=== PATIENT | male | born 1965 | race Caucasian/White ===

== ENCOUNTER 2023-07-22 14:45 | Outpatient (AMB) | payer OTHER, SELFPAY ==
[2023-07-22 15:22] VITALS: BP 120/80; PULSE 70; O2SAT 96; BMI 34.0
--- NOTE | 2023-07-22 15:22 | HO.NEPHOV ---
HPI HPI Comments History of Present Illness Details I had the privilege of seeing Philip in follow-up of his hypertension. 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 He is continuing to be active. His blood pressure has been at goal. He has not changed any medications. He is trying to lose some weight. He does not have any chest pain, shortness of breath, paroxysmal nocturnal dyspnea, orthopnea, pedal edema or urinary symptoms. He did not complain of any orthostatic symptoms. He has not very strict about low-sodium diet. He avoids nonsteroidal anti-inflammatory medications and maintain good hydration. He is closely followed up by his primary care physician. He did not have any active complaints at the time of this office visit. [facility] Medical History (Updated 08/02/23 @ 09:53 by Ivan Queen MD) Hypertension Surgical History (Updated 07/22/23 @ 15:25 by Enma Moore MA) H/O prior ablation treatment Family History (Updated 07/22/23 @ 15:26 by Enma Moore MA) Mother Hypertension Social History (Updated 07/22/23 @ 15:26 by Enma Moore MA) Alcohol intake: current Comment: Socially Patient Tobacco Use Status: Never used Tobacco Vital Signs 07/22/23 15:22 Height 5 ft 7 in Weight 217 lb 6 oz BMI 34.0 BP 120/80 Blood Pressure Location Rt brachial Position Sitting Pulse 70 Pulse Source Pulse Oximeter Pulse Oximetry (%) 96 Oxygen Delivery Method Room Air Physical Exam Vital Signs: Last Vital Signs Pulse 70 07/22/23 15:22 BP 120/80 07/22/23 15:22 Pulse Ox 96 07/22/23 15:22 Oxygen Delivery Method Room Air 07/22/23 15:22 BMI result Body Mass Index 34.0 Const General: comfortable and no acute distress Orientation/consciousness: patient oriented x3 HEENT Head: Yes normocephalic Mouth: Normal oral and palatal mucosa present Eyes EOM: EOMs intact bilaterally Neck Neck: Yes supple Resp Auscultation: clear to auscultation bilaterally Cardio Jugular venous distension: no JVD Rate: regular rate GI Palpation (GI): Soft to palpation Auscultation: normal bowel sounds General: Yes no CVA tenderness Back/Spine/Pelvis Back: no CVA tenderness Skin General skin exam: no rashes or lesions noted Neuro General: patient oriented x3 and moves all extremities Extrem General: Yes no pedal edema Assessment & Plan Assessment & Plan (1) Hypertension: Code(s): I10 - Essential (primary) hypertension Qualifiers: Hypertension type: primary hypertension Qualified Code(s): I10 - Essential (primary) hypertension Plan Philip has hypertension for long time and is on antihypertensives. He has not had any irregular heart rhythm or palpitations. He does not have any retinopathy, left ventricular hypertrophy, proteinuria or abnormal renal functions. He needs to lose some weight. He should cut back sodium in the diet. He should maintain good hydration and stay away from nonsteroidal anti-inflammatories as much as he can. His blood pressure is currently well controlled on the current medication regimen. I did not make any medication changes today. No prescription refills requested. All questions answered. Follow-up given. Coding Level of Care Code Est Pt Level 3 (68322) Diagnoses Primary hypertension I10 Hypertension type: primary hypertension Results Reviewed Nephrology Results: No Data to Display
== END 2023-07-22 15:58 | disposition home or self-care (01) ==
PROVIDERS: PCP Internal Medicine; Visit Provider Internal Medicine Nephrology
DX: I10 Essential (primary) hypertension (principal)
CPT/HCPCS: 99213

== ENCOUNTER → 2023-07-22 14:45 | Outpatient (BNVA) | payer OTHER, SELFPAY | PROVIDERS: PCP Internal Medicine; Visit Provider Internal Medicine Nephrology ==

== ENCOUNTER 2023-10-01 13:18 | Outpatient (REF) | payer OTHER, SELFPAY ==
[2023-10-01 14:15] LABS: MANUAL DIFF FLAG NO
[2023-10-01 14:58] LABS: Basophils Absolute Auto 0.1 X10*3/uL (0.0-0.2); Basophils Percent Auto 1.2 % (0-2); Eosinophils Absolute Auto 0.6 X10*3/uL (0.0-0.4); Eosinophils Percent Auto 8.5 % (0-4); Hematocrit 42.8 % (42.0-52.0); Imm Gran Abs Auto 0.02 X10*3/uL (0.00-0.03); Imm Gran Pct Auto 0.3 % (0.0-0.4); Lymphocytes Absolute Auto 1.4 X10*3/uL (1.2-4.9); Lymphocytes Percent Auto 21.5 % (20-40); Mean Corpuscular Hemoglobin 30.7 pg (27.0-33.0); Mean Corpuscular Volume 87.5 fL (80.0-98.0); Monocytes Absolute Auto 0.5 X10*3/uL (0.1-1.2); Neutrophils Absolute Auto 4.1 x10*3/uL (2.0-8.3); Neutrophils Percent Auto 61.5 % (45-73); Platelet Count 278 X10*3/uL (160-400); Red Blood Count 4.89 X10*6/uL (4.60-5.80); Red Cell Distribution Width 12.8 % (11.0-16.0); White Blood Count 6.7 X10*3/uL (4.8-10.8)
[2023-10-01 15:40] LABS: Erythrocyte Sedimentation Rate 9 MM/HR (0-15)
[2023-10-01 15:51] LABS: Anion Gap 17 (12-20); Blood Urea Nitrogen 15 mg/dL (9-16); Calcium 9.7 mg/dL (8.4-10.2); Carbon Dioxide 27 mmol/L (22-29); Chloride 100 mmol/L (96-108); Estimated Glomerular Filt Rate > 60; Glucose Random 117 mg/dL (60-115); Sodium 140 mmol/L (135-145)
[2023-10-04 11:19] LABS: IgA 110 mg/dL (47-310); IgG 836 mg/dL (600-1640); IgM 104 mg/dL (50-300)
[2023-10-06 14:34] LABS: Immunoglobulin E 375 kU/L (<OR=114)
[2023-10-07 16:03] LABS: Asperg fumigatus Precip Abs NEGATIVE (NEGATIVE); Micropoly faeni Abs NEGATIVE (NEGATIVE); Pigeon serum Abs NEGATIVE (NEGATIVE); Saccharo pora viridis Abs NEGATIVE (NEGATIVE); Thermo candidus Abs NEGATIVE (NEGATIVE); Thermoa vulgaris #1 NEGATIVE (NEGATIVE)
== END 2023-10-01 13:19 | disposition home or self-care (01) ==
LOC: HO.LAB 13:18
PROVIDERS: PCP Internal Medicine; Visit Provider Hospitalist
DX: T78.40XA Allergy, unspecified, initial encounter (principal); R91.8 Other nonspecific abnormal finding of lung field; D72.19 Other eosinophilia; J45.40 Moderate persistent asthma, uncomplicated
CPT/HCPCS: 36415; 80048; 82784; 82785; 85025; 85652; 86331; 86606; 86609

== ENCOUNTER 2023-10-01 13:18 | Outpatient (AMB) | payer OTHER, SELFPAY ==
--- NOTE | 2023-10-01 13:25 | A.OFFVIS_ITS ---
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 The patient is a 58-year-old gentleman with a history of sleep apnea in addition to cardiac arrhythmias status post ablation who apparently been having worsening cough symptoms. The patient states that for the last 3-4 months he had been having worsening shortness breath and cough. Moderate severity. He was seen by primary care at 1 point was given a course of antibiotics that he did not see any significant improvement. His breathing got so bad over the winter that he went to the [facility]. There he had a chest x-ray which was without any acute disease. He did have blood work which I personally reviewed as well. His eosinophil count was up to 28% of his total white blood cell count and his absolute eosinophil count was 1900. That is significantly high. He was given prednisone symptoms improved. Now he is back to exercising some. He is almost back to baseline. He does have the rescue inhaler but does not use it too often. He was concerned about in a walker triggered his symptoms. Was not sure if it was CPAP. He does use distilled water. He denies any pets or any construction or demolition the house. He has never had allergy testing. 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 The patient does need to be on inhaled corticosteroid. He still has wheezing on examination. Will go ahead and request allergy testing at this time. In addition to that the patient did have a chest x-ray which I personally reviewed. It appears that he had smoked nodular opacity on his right hemithorax. Likely nipple shadow. At some point will have to repeat the x-ray to make sure if he continues to be abnormal he will need a CT scan of the chest. On examination the patient also had a diastolic murmur. He does have a cardiac history and has had multiple studies in the past. I will request his most re cent echocardiogram from his primary care doctors otherwise will have to order an echocardiogram. I did reassure him that he should continue using the CPAP in ways to clean the machine to make sure to minimize exposures. [facility] Medical History (Updated 10/03/23 @ 22:56 by Andrews Luu MD) Allergies Asthma Eosinophilia Hypertension Surgical History (Updated 07/22/23 @ 15:25 by Enma Moore MA) H/O prior ablation treatment Family History (Updated 07/22/23 @ 15:26 by Enma Moore MA) Mother Hypertension Social History (Updated 07/22/23 @ 15:26 by Enma Moore MA) Alcohol intake: current Comment: Socially Patient Tobacco Use Status: Never used Tobacco Review of Systems Const Denies fever(s) Eyes Reports no additional complaints ENT Reports nasal congestion Card Denies chest pain Resp Reports cough and Reports wheezing GI Reports no additional complaints Musc Reports no additional complaints Skin/Breast Denies rash Neuro Reports no additional complaints Endo Denies flushing Luis Carlos/Lymph Denies lymphadenopathy Aller/Immun Reports wheezing Physical Exam Vital Signs: Last Vital Signs Pulse 65 10/01/23 13:26 BP 146/70 H 10/01/23 13:26 Pulse Ox 97 10/01/23 13:26 Oxygen Delivery Method Room Air 10/01/23 13:26 BMI result Body Mass Index 32.9 Const General: comfortable HEENT Head: Yes normocephalic Neck Neck: Yes supple Chest Chest palpation & inspection: normal inspection of the chest Resp Effort & Inspection: normal respiratory effort and prolonged expiratory phase Auscultation: wheezes Cardio Heart sounds: S1 normal heart sound present, S2 normal heart sound present and Murmur heart sound present diastolic soft and II/ GI Palpation (GI): Soft to palpation Skin General skin exam: no rashes or lesions noted Extrem General: Yes no clubbing, cyanosis or edema Assessment & Plan Assessment & Plan (1) Eosinophilia: Code(s): D72.10 - Eosinophilia, unspecified Category: Medical Qualifiers: Eosinophilia type: other eosinophilia Qualified Code(s): D72.19 - Other eosinophilia (2) Asthma: Code(s): J45.909 - Unspecified asthma, uncomplicated Category: Medical Qualifiers: Asthma severity: moderate Asthma complication type: uncomplicated Asthma persistence: persistent Qualified Code(s): J45.40 - Moderate persistent asthma, uncomplicated (3) Allergies: Code(s): T78.40XA - Allergy, unspecified, initial encounter Category: Medical Qualifiers: Encounter type: initial encounter Qualified Code(s): T78.40XA - Allergy, unspecified, initial encounter Plan Start Breo NICOLASA as needed Nebulizer provided Bloodwork repeat CXR ?right sided nodule versus nipple shadow PFTs F/U 6-8 weeks Orders: Orders Complete Blood Count Auto Diff 10/01/23 D72.10 - Eosinophilia, unspecified, J45.909 - Unspecified asthma, uncomplicated, T78.40XA - Allergy, unspecified, initial encounter Hypersensitive Pneumonitis Prf 10/01/23 D72.10 - Eosinophilia, unspecified, J45.909 - Unspecified asthma, uncomplicated, R91.8 - Other nonspecific abnormal finding of lung field, T78.40XA - Allergy, unspecified, initial encounter PFT pulmonary function test 10/01/23 D72.10 - Eosinophilia, unspecified, J45.909 - Unspecified asthma, uncomplicated Resp Allergy Profile Region I 10/01/23 D72.10 - Eosinophilia, unspecified, J45.909 - Unspecified asthma, uncomplicated, R91.1 - Solitary pulmonary nodule, T78.40XA - Allergy, unspecified, initial encounter Basic Metabolic Panel 10/01/23 D72.10 - Eosinophilia, unspecified, J45.909 - Unspecified asthma, uncomplicated, T78.40XA - Allergy, unspecified, initial encounter Erythrocyte Sedimentation Rate 10/01/23 D72.10 - Eosinophilia, unspecified, J45.909 - Unspecified asthma, uncomplicated, T78.40XA - Allergy, unspecified, initial encounter Immunoglobulin E 10/01/23 D72.10 - Eosinophilia, unspecified, J45.909 - Unspecified asthma, uncomplicated, T78.40XA - Allergy, unspecified, initial enco unter Immunoglobulins,IgG IgA IgM 10/01/23 D72.10 - Eosinophilia, unspecified, J45.909 - Unspecified asthma, uncomplicated, T78.40XA - Allergy, unspecified, initial encounter XR chest 2V 10/01/23 D72.10 - Eosinophilia, unspecified, J45.909 - Unspecified asthma, uncomplicated Medications: New fluticasone furoate-vilanterol 200-25 mcg/dose (Breo Ellipta) 1 inh inhalation DAILY 60 ea 11RF 30 days J45.909 - Unspecified asthma, uncomplicated Coding Level of Care Code New Pt Level 4 (98973) Diagnoses Other eosinophilia D72.19 Eosinophilia type: other eosinophilia Moderate persistent asthma without complication J45.40 Asthma severity: moderate Asthma complication type: uncomplicated Asthma persistence: persistent Allergy, initial encounter T78.40XA Encounter type: initial encounter Time Spent (min) 37
[2023-10-01 13:26] VITALS: BP 146/70; PULSE 65; O2SAT 97; BMI 32.9
== END 2023-10-01 13:59 | disposition home or self-care (01) ==
PROVIDERS: PCP Internal Medicine; Visit Provider Hospitalist
DX: D72.19 Other eosinophilia (principal); J45.40 Moderate persistent asthma, uncomplicated; T78.40XA Allergy, unspecified, initial encounter
CPT/HCPCS: 99204

== ENCOUNTER 2024-01-03 10:51 | Outpatient (AMB) | payer OTHER, SELFPAY ==
[2024-01-03 11:08] VITALS: PULSE 67; O2SAT 97; BMI 33.7
--- NOTE | 2024-01-03 11:08 | MHC.OFFVIS ---
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 The patient states that for the last 3-4 months he had been having worsening shortness breath and cough. Moderate severity. He was seen by primary care at 1 point was given a course of antibiotics that he did not see any significant improvement. His breathing got so bad over the winter that he went to the [facility]. There he had a chest x-ray which was without any acute disease. He did have blood work which I personally reviewed as well. His eosinophil count was up to 28% of his total white blood cell count and his absolute eosinophil count was 1900. That is significantly high. He was given prednisone symptoms improved. Now he is back to exercising some. He is almost back to baseline. He does have the rescue inhaler but does not use it too often. He was concerned about in a walker triggered his symptoms. Was not sure if it was CPAP. He does use distilled water. He denies any pets or any construction or demolition the house. He has never had allergy testing. 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 The patient does need to be on inhaled corticosteroid. He still has wheezing on examination. Will go ahead and request allergy testing at this time. In addition to that the patient did have a chest x-ray which I personally reviewed. It appears that he had smoked nodular opacity on his right hemithorax. Likely nipple shadow. At some point will have to repeat the x-ray to make sure if he continues to be abnormal he will need a CT scan of the chest. On examination the patient also had a diastolic murmur. He does have a cardiac history and has had multiple studies in the past. I will request his most recent echocardiogram from his primary care doctors otherwise will have to order an echocardiogram. I did reassure him that he should continue using the CPAP in ways to clean the machine to make sure to minimize exposures. 01/03/2024 the patient is here for a pulmonary follow-up visit. Overall the patient is doing okay. He did start the Breo inhaler at very affecting beneficial. He actually felt back to normal for the last 2 months. Then he stopped using the inhalers and was doing better. Quickly after that a few weeks he started noticing worsening shortness of breath cough and chest tightness. We did review his blood work. The patient does have significant eosinophilia also has an elevated IgE count consistent with allergic asthma. In addition to that he had a chest x-ray which we personally reviewed. His last chest x-ray demonstrated a nodular density around the right hemithorax. This was not mentioned in the report unfortunately. I did go back to see history and he did have a CT scan from 2014 demonstrating multiple pulmonary nodules. Therefore will request a CT scan of the chest at this time. The meantime he knows he has to go back on the Breo. He also benefit from Singulair. Hopefully if he does better we can looking to decreasing the dose from 200 mcg to 100 mcg which will probably be a better option for him. He is not interested in allergy shots at this time. The patient may be a good candidate for biologic therapy. but, if response reasonable to the to the inhaler therapy will continue with that. Also to note the patient does use CPAP. The CPAP therapy continues to be affecting beneficial. He does use the CPAP every night For more than 4 hours a night. [facility] Medical History (Updated 01/03/24 @ 21:14 by Andrews Luu MD) IRINA on CPAP Pulmonary nodules Allergies Asthma Eosinophilia Hypertension Surgical History (Updated 07/22/23 @ 15:25 by Enma Moore MA) H/O prior ablation treatment Family History (Updated 07/22/23 @ 15:26 by Enma Moore MA) Mother Hypertension Social History (Updated 07/22/23 @ 15:26 by Enma Moore MA) Alcohol intake: current Comment: Socially Patient Tobacco Use Status: Never used Tobacco Review of Systems Const Denies fever(s) Eyes Reports no additional complaints ENT Reports nasal congestion Card Denies chest pain Resp Reports cough and Reports wheezing GI Reports no additional complaints Musc Reports no additional complaints Skin/Breast Denies rash Neuro Reports no additional complaints Endo Denies flushing Luis Carlos/Lymph Denies lymphadenopathy Aller/Immun Reports wheezing Physical Exam Vital Signs: Last Vital Signs Pulse 67 01/03/24 11:08 Pulse Ox 97 01/03/24 11:08 Oxygen Delivery Method Room Air 01/03/24 11:08 BMI result Body Mass Index 33.7 Const General: comfortable HEENT Head: Yes normocephalic Neck Neck: Yes supple Chest Chest palpation & inspection: normal inspection of the chest Resp Effort & Inspection: normal respiratory effort and prolonged expiratory phase Auscultation: wheezes Cardio Heart sounds: S1 normal heart sound present, S2 normal heart sound present and Murmur heart sound present diastolic soft and II/ GI Palpation (GI): Soft to palpation Skin General skin exam: no rashes or lesions noted Extrem General: Yes no clubbing, cyanosis or edema Assessment & Plan Assessment & Plan (1) Eosinophilia: Code(s): D72.10 - Eosinophilia, unspecified Category: Medical Qualifiers: Eosinophilia type: other eosinophilia Qualified Code(s): D72.19 - Other eosinophilia (2) Asthma: Code(s): J45.909 - Unspecified asthma, uncomplicated Category: Medical Qualifiers: Asthma complication type: uncomplicated Asthma persistence: persistent Asthma severity: moderate Qualified Code(s): J45.40 - Moderate persistent asthma, uncomplicated (3) Allergies: Code(s): T78.40XA - Allergy, unspecified, initial encounter Category: Medical Qualifiers: Encounter type: initial encounter Qualified Code(s): T78.40XA - Allergy, unspecified, initial encounter (4) Pulmonary nodules: Comment: based on CXR 08/[address] chest 2014 Code(s): R91.8 - Other nonspecific abnormal finding of lung field Category: Medical (5) IRINA on CPAP: Code(s): G47.33 - Obstructive sleep apnea (adult) (pediatric) Category: Medical Plan restart Breo NICOLASA as needed start Singulair Nebulizer provided CT chest PFTs in 3 months F/U 3-4 months Orders: Orders CT chest wo IV con Today R91.8 - Other nonspecific abnormal finding of lung field Medications: New montelukast (Singulair) 10 mg PO BEDTIME 30 tabs 11RF 30 days J45.909 - Unspecified asthma, uncomplicated Refilled fluticasone furoate-vilanterol 200-25 mcg/dose (Breo Ellipta) 1 inh inhalation DAILY 60 ea 11RF 30 days J45.909 - Unspecified asthma, uncomplicated Coding Level of Care Code Est Pt Level 4 (62217) Diagnoses Other eosinophilia D72.19 Eosinophilia type: other eosinophilia Moderate persistent asthma without complication J45.40 Asthma complication type: uncomplicated Asthma persistence: persistent Asthma severity: moderate Allergy, initial encounter T78.40XA Encounter type: initial encounter Pulmonary nodules R91.8 IRINA on CPAP G47.33 Time Spent (min) 17
== END 2024-01-03 13:08 | disposition home or self-care (01) ==
PROVIDERS: PCP Internal Medicine; Visit Provider Hospitalist
DX: D72.19 Other eosinophilia (principal); J45.40 Moderate persistent asthma, uncomplicated; T78.40XA Allergy, unspecified, initial encounter; R91.8 Other nonspecific abnormal finding of lung field; G47.33 Obstructive sleep apnea (adult) (pediatric)
CPT/HCPCS: 99214

== ENCOUNTER → 2024-01-03 10:51 | Outpatient (BNVA) | payer OTHER, SELFPAY | PROVIDERS: PCP Internal Medicine; Visit Provider Hospitalist ==

== ENCOUNTER 2024-01-20 13:53 | Outpatient (AMB) | payer OTHER, SELFPAY ==
[2024-01-20 14:41] VITALS: BP 160/80; PULSE 65; O2SAT 93; BMI 33.5
--- NOTE | 2024-01-20 14:41 | HO.NEPHOV_ITS ---
Vital Signs 01/20/24 14:41 Height 5 ft 7 in Weight 214 lb BMI 33.5 BP 160/80 H Blood Pressure Location Lt brachial Position Sitting Pulse 65 Pulse Source Pulse Oximeter Pulse Oximetry (%) 93 Oxygen Delivery Method Room Air Intake Visit Reasons: Hypertension/ 6 MO FU/ Conf Director Internal Audit Required: No Accompanied by: Self / Same As Patient Allergies No Known Allergies Allergy (Verified 01/20/24 14:42) HPI Comments Details: I had the privilege of seeing Philip in follow-up of his hypertension. 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 He is continuing to be active. His blood pressure has been at goal. He has not changed any medications. He is trying to lose some weight. He does not have any chest pain, shortness of breath, paroxysmal nocturnal dyspnea, orthopnea, pedal edema or urinary symptoms. He did not complain of any orthostatic symptoms. He has not very strict about low-sodium diet. He avoids nonsteroidal anti-inflammatory medications and maintain good hydration. He is closely followed up by his primary care physician. He did not have any active complaints at the time of this office visit. [facility] Medical History (Updated 01/03/24 @ 21:14 by Andrews Luu MD) IRINA on CPAP Pulmonary nodules Allergies Asthma Eosinophilia Hypertension Surgical History H/O prior ablation treatment Family History Mother Hypertension Social History Alcohol intake: current Comment: Socially Patient Tobacco Use Status: Never used Tobacco Review of Systems Const All systems reviewed & are unremarkable except as noted in HPI and below Physical Exam Vital Signs: Last Vital Signs Pulse 65 01/20/24 14:41 BP 170/84 H 01/20/24 14:41 Pulse Ox 93 01/20/24 14:41 Oxygen Delivery Method Room Air 01/20/24 14:41 BMI result Body Mass Index 33.5 Const General: comfortable and no acute distress Orientation/consciousness: patient oriented x3 HEENT Head: Yes normocephalic Mouth: Normal oral and palatal mucosa present Eyes EOM: EOMs intact bilaterally Neck Neck: Yes supple Resp Auscultation: clear to auscultation bilaterally Cardio Jugular venous distension: no JVD Rate: regular rate GI Palpation (GI): Soft to palpation Auscultation: normal bowel sounds General: Yes no CVA tenderness Back/Spine/Pelvis Back: no CVA tenderness Skin General skin exam: no rashes or lesions noted Neuro General: patient oriented x3 and moves all extremities Extrem General: Yes no pedal edema Results Reviewed Nephrology Results: Hgb 15.0 g/dl (14.0-18.0) 10/01/23 WBC 6.7 X10*3/uL (4.8-10.8) 10/01/23 Plt Count 278 X10*3/uL (160-400) 10/01/23 Sodium 140 mmol/L (135-145) 10/01/23 Potassium 4.0 mmol/L (3.3-5.1) 10/01/23 Chloride 100 mmol/L (96-108) 10/01/23 Carbon Dioxide 27 mmol/L (22-29) 10/01/23 BUN 15 mg/dL (9-16) 10/01/23 Creatinine 1.08 mg/dL (0.5-1.4) 10/01/23 Calcium 9.7 mg/dL (8.4-10.2) 10/01/23 Assessment & Plan Assessment & Plan (1) Hypertension: Code(s): I10 - Essential (primary) hypertension Category: Medical Qualifiers: Hypertension type: primary hypertension Qualified Code(s): I10 - Essential (primary) hypertension Plan Philip has hypertension for long time and is on antihypertensives. He has not had any irregular heart rhythm or palpitations. He does not have any retinopathy, left ventricular hypertrophy, proteinuria or abnormal renal functions. He needs to lose some weight. He should cut back sodium in the diet. He should maintain good hydration and stay away from nonsteroidal anti- inflammatories as much as he can. His blood pressure is not currently well controlled on the current medication regimen. I did increase Amlodipine to 10 mg daily but not make any medication changes today. No prescription refills requested. All questions answered. Follow-up given. Coding Level of Care Code Est Pt Level 4 (68033) Diagnoses Primary hypertension I10 Hypertension type: primary hypertension
== END 2024-01-20 15:14 | disposition home or self-care (01) ==
PROVIDERS: PCP Internal Medicine; Visit Provider Internal Medicine Nephrology
DX: I10 Essential (primary) hypertension (principal)
CPT/HCPCS: 99214

== ENCOUNTER → 2024-01-20 13:53 | Outpatient (BNVA) | payer OTHER, SELFPAY | PROVIDERS: PCP Internal Medicine; Visit Provider Internal Medicine Nephrology ==

== ENCOUNTER 2024-01-26 07:12 | Outpatient (REF) | payer OTHER, SELFPAY ==
--- NOTE | ~2024-01-26 | CT_ITS ---
EXAMINATION: CT CHEST WITHOUT CONTRAST CLINICAL INFORMATION: Pulmonary nodules COMPARISON: None available. TECHNIQUE: Multidetector volumetric CT imaging of the chest was done. Axial MIP volume rendering provided. Sagittal and coronal reformatted images were obtained. This CT examination was performed using dose optimization techniques as appropriate, variously including the following: *Automated exposure control *Adjustment of mA and/or kV according to patient size (this includes techniques or standardized protocols for targeted exams where dose is matched to indication/reason for exam; i.e. extremities or head) *Use of iterative reconstruction technique DLP: 238 mGy-cm FINDINGS: Submitted for interpretation on 04/05/2024. LUNGS: Bilateral, scattered, nonspecific, less than 4 mm pulmonary nodules, the most conspicuous in the right lung base. No bronchiectasis. No honeycombing. Probable scarring in the lingula and right middle lobe. MEDIASTINUM: No lymphadenopathy. Calcified plaque in the thoracic aortic arch. No aneurysm, thoracic aorta. No pericardial effusion.. CORONARY ARTERY CALCIFICATION: Calcified plaques in the coronary arteries. PLEURA: No pleural effusion. No pneumothorax. AXILLA: No lymphadenopathy. UPPER ABDOMEN: Heterogeneous decreased attenuation throughout the liver parenchyma. Subtle nodular surface of the liver. Calcified plaques, splenic artery. Calcified plaques in the origin of the mesenteric arteries and abdominal aorta. OSSEOUS STRUCTURES: Multilevel spondylosis. No acute fracture or listhesis. No lytic or blastic lesions, axial skeleton. Degenerative changes, left shoulder. CT/CT chest wo IV con IMPRESSION: Nonspecific subcentimeter pulmonary nodules, bilaterally. Fleischner criteria: Low risk patients: No routine follow-up required. High risk patients: Optional CT at 12 months.. Electronically signed by: Shayan Castillo MD 04/05/2024 11:21 AM EDT
== END 2024-01-26 07:13 | disposition home or self-care (01) ==
LOC: HO.CT 07:12
PROVIDERS: PCP Internal Medicine; Visit Provider Hospitalist
DX: R91.8 Other nonspecific abnormal finding of lung field (principal)
CPT/HCPCS: 71250

== ENCOUNTER → 2024-01-26 07:14 | Outpatient (BNV) | payer OTHER, SELFPAY | PROVIDERS: PCP Internal Medicine; Visit Provider Radiology Diagnostic Radiology | DX: R91.8 Other nonspecific abnormal finding of lung field (principal) | CPT/HCPCS: 71250 ==

== ENCOUNTER 2024-04-27 09:15 | Outpatient (AMB) | payer OTHER, SELFPAY ==
--- NOTE | 2024-04-27 09:34 | HO.NEPHOV_ITS ---
Vital Signs 04/27/24 09:35 Height 5 ft 7 in Weight 211 lb 2 oz BMI 33.1 BP 176/80 H Blood Pressure Location Rt brachial Position Sitting Pulse 67 Pulse Source Pulse Oximeter Pulse Oximetry (%) 96 Oxygen Delivery Method Room Air Intake Visit Reasons: Hypertension 3m f/u-Conf Dye Weigher Helper Required: No Accompanied by: Self / Same As Patient Allergies No Known Allergies Allergy (Verified 04/27/24 09:35) HPI Comments Details: Philip was seen in follow-up of his hypertension. 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 He is continuing to be active. His blood pressure has not been at goal. He has lost some weight. He does not have any chest pain, shortness of breath, paroxysmal nocturnal dyspnea, orthopnea, pedal edema or urinary symptoms. He did not complain of any orthostatic symptoms. He has not very strict about low-sodium diet. He avoids nonsteroidal anti-inflammatory medications and maintain good hydration. He did not have any active complaints at the time of this office visit. [facility] Medical History (Updated 01/03/24 @ 21:14 by Andrews Luu MD) IRINA on CPAP Pulmonary nodules Allergies Asthma Eosinophilia Hypertension Surgical History H/O prior ablation treatment Family History Mother Hypertension Social History Alcohol intake: current Comment: Socially Patient Tobacco Use Status: Never used Tobacco Review of Systems Const All systems reviewed & are unremarkable except as noted in HPI and below Physical Exam Vital Signs: BMI result Body Mass Index 33.1 Const General: comfortable and no acute distress Orientation/consciousness: patient oriented x3 HEENT Head: Yes normocephalic Mouth: Normal oral and palatal mucosa present Eyes EOM: EOMs intact bilaterally Neck Neck: Yes supple Resp Auscultation: clear to auscultation bilaterally Cardio Jugular venous distension: no JVD Rate: regular rate GI Palpation (GI): Soft to palpation Auscultation: normal bowel sounds General: Yes no CVA tenderness Back/Spine/Pelvis Back: no CVA tenderness Skin General skin exam: no rashes or lesions noted Neuro General: patient oriented x3 and moves all extremities Extrem General: Yes no pedal edema Results Reviewed Nephrology Results: Hgb 15.0 g/dl (14.0-18.0) 10/01/23 WBC 6.7 X10*3/uL (4.8-10.8) 10/01/23 Plt Count 278 X10*3/uL (160-400) 10/01/23 Sodium 140 mmol/L (135-145) 10/01/23 Potassium 4.0 mmol/L (3.3-5.1) 10/01/23 Chloride 100 mmol/L (96-108) 10/01/23 Carbon Dioxide 27 mmol/L (22-29) 10/01/23 BUN 15 mg/dL (9-16) 10/01/23 Creatinine 1.08 mg/dL (0.5-1.4) 10/01/23 Calcium 9.7 mg/dL (8.4-10.2) 10/01/23 Assessment & Plan Assessment & Plan (1) Hypertension: Code(s): I10 - Essential (primary) hypertension Category: Medical Qualifiers: Hypertension type: primary hypertension Qualified Code(s): I10 - Essential (primary) hypertension Plan Philip has hypertension for long time and is on antihypertensives. He has not had any irregular heart rhythm or palpitations. He does not have any retinopathy, left ventricular hypertrophy, proteinuria or abnormal renal functions. He needs to lose some weight. He should cut back sodium in the diet. He should maintain good hydration and stay away from nonsteroidal anti- inflammatories as much as he can. His blood pressure is not currently well controlled on the current medication regimen. I D/Reagan his Amlodipine and started him on Nifedipine 60 mg daily. All questions answered. Follow-up given. Medications: New nifedipine ER 60 mg PO DAILY 30 tabs 3RF Coding Level of Care Code Est Pt Level 4 (66516) Diagnoses Primary hypertension I10 Hypertension type: primary hypertension
[2024-04-27 09:35] VITALS: BP 176/80; PULSE 67; O2SAT 96; BMI 33.1
== END 2024-04-27 10:02 | disposition home or self-care (01) ==
PROVIDERS: PCP Internal Medicine; Visit Provider Internal Medicine Nephrology
DX: I10 Essential (primary) hypertension (principal)
CPT/HCPCS: 99214

== ENCOUNTER → 2024-04-27 09:15 | Outpatient (BNVA) | payer OTHER, SELFPAY | PROVIDERS: PCP Internal Medicine; Visit Provider Internal Medicine Nephrology | DX: I10 Essential (primary) hypertension (principal) ==

== ENCOUNTER 2024-05-09 09:19 | Outpatient (AMB) | payer OTHER, SELFPAY ==
[2024-05-09 09:35] VITALS: BP 154/70; PULSE 70; O2SAT 99; BMI 33.1
--- NOTE | 2024-05-09 09:35 | HO.NEPHOV ---
Vital Signs 05/09/24 09:35 Height 5 ft 7 in Weight 211 lb 8 oz BMI 33.1 BP 154/70 H Blood Pressure Location Lt brachial Position Sitting Pulse 70 Pulse Source Pulse Oximeter Pulse Oximetry (%) 99 Oxygen Delivery Method Room Air Intake Visit Reasons: Dec follow up Java Scala Developer Required: No Accompanied by: Self / Same As Patient Allergies No Known Allergies Allergy (Verified 05/09/24 09:36) HPI Comments Details: Philip was seen in follow-up of his hypertension. 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 He is continuing to be active. His blood pressure has not been at goal. He has lost some weight. He does not have any chest pain, shortness of breath, paroxysmal nocturnal dyspnea, orthopnea, pedal edema or urinary symptoms. He did not complain of any orthostatic symptoms. He has not very strict about low-sodium diet. He avoids nonsteroidal anti-inflammatory medications and maintain good hydration. He did not have any active complaints at the time of this office visit. [facility] Medical History (Updated 01/03/24 @ 21:14 by Adnrews Luu MD) IRINA on CPAP Pulmonary nodules Allergies Asthma Eosinophilia Hypertension Surgical History H/O prior ablation treatment Family History Mother Hypertension Social History Alcohol intake: current Comment: Socially Patient Tobacco Use Status: Never used Tobacco Physical Exam Vital Signs: Last Vital Signs Pulse 70 05/09/24 09:35 BP 154/70 H 05/09/24 09:35 Pulse Ox 99 05/09/24 09:35 Oxygen Delivery Method Room Air 05/09/24 09:35 BMI result Body Mass Index 33.1 Const General: comfortable and no acute distress Orientation/consciousness: patient oriented x3 HEENT Head: Yes normocephalic Mouth: Normal oral and palatal mucosa present Eyes EOM: EOMs intact bilaterally Neck Neck: Yes supple Resp Auscultation: clear to auscultation bilaterally Cardio Jugular venous distension: no JVD Rate: regular rate GI Palpation (GI): Soft to palpation Auscultation: normal bowel sounds General: Yes no CVA tenderness Back/Spine/Pelvis Back: no CVA tenderness Skin General skin exam: no rashes or lesions noted Neuro General: patient oriented x3 and moves all extremities Extrem General: Yes no pedal edema Results Reviewed Nephrology Results: Hgb 15.0 g/dl (14.0-18.0) 10/01/23 WBC 6.7 X10*3/uL (4.8-10.8) 10/01/23 Plt Count 278 X10*3/uL (160-400) 10/01/23 Sodium 140 mmol/L (135-145) 10/01/23 Potassium 4.0 mmol/L (3.3-5.1) 10/01/23 Chloride 100 mmol/L (96-108) 10/01/23 Carbon Dioxide 27 mmol/L (22-29) 10/01/23 BUN 15 mg/dL (9-16) 10/01/23 Creatinine 1.08 mg/dL (0.5-1.4) 10/01/23 Calcium 9.7 mg/dL (8.4-10.2) 10/01/23 Assessment & Plan Assessment & Plan (1) Hypertension: Code(s): I10 - Essential (primary) hypertension Category: Medical Qualifiers: Hypertension type: primary hypertension Qualified Code(s): I10 - Essential (primary) hypertension Plan Philip has hypertension for long time and is on antihypertensives. He has not had any irregular heart rhythm or palpitations. He does not have any retinopathy, left ventricular hypertrophy, proteinuria or abnormal renal functions. He needs to lose some weight. He should cut back sodium in the diet. He should maintain good hydration and stay away from nonsteroidal anti-inflammatories as much as he can. His blood pressure is not currently well controlled on the current medication regimen. He can continue Nifedipine 90 mg daily. I plan to arrange a 24 hour BPM at next visit. Follow-up given Coding Level of Care Code Est Pt Level 4 (80925) Diagnoses Primary hypertension I10 Hypertension type: primary hypertension
== END 2024-05-09 10:22 | disposition home or self-care (01) ==
PROVIDERS: PCP Internal Medicine; Visit Provider Internal Medicine Nephrology
DX: I10 Essential (primary) hypertension (principal)
CPT/HCPCS: 99214

== ENCOUNTER → 2024-05-09 09:19 | Outpatient (BNVA) | payer OTHER, SELFPAY | PROVIDERS: PCP Internal Medicine; Visit Provider Internal Medicine Nephrology ==

== ENCOUNTER 2025-04-12 14:07 | Outpatient (AMB) | payer OTHER, SELFPAY ==
--- OUTSIDE RECORDS SUMMARY | 2024-09-18 05:55 | XMS_ITS ---
Author Organization [facility] Address [address] [place], [place] [id number] Care Team Providers Care White Sugar Supervisor Name Role Phone FITO HELLER Primary Care Provider REASON FOR VISIT Cancel Appointment Request Encounters Encounter Location Date Provider Diagnosis [address] [address] 09/18/2024 FITO HELLER PLAN OF TREATMENT Next Appt Details Provider Name:FITO ALFRED, 09/05/2025 01:45:00 PM, [address] [place], [phone],
--- OUTSIDE RECORDS SUMMARY | 2024-09-21 03:30 | XMS_ITS ---
Author Organization [facility] Address [address] [place], [place] [phone] Care Team Providers Care Plc Programmer Name Role Phone FITO HELLER Primary Care Provider [place], NURSING [facility] [phone] REASON FOR VISIT ABPM Applied Encounters Encounter Location Date Provider Diagnosis [address] [address] 09/21/2024 NURSING [place] PLAN OF TREATMENT Next Appt Details Provider Name:FITO ALFRED, 09/05/2025 01:45:00 PM, [address] [place] [address], [phone],
--- OUTSIDE RECORDS SUMMARY | 2024-09-22 03:30 | XMS_ITS ---
Author Organization [facility] Address [address] [place], [place] [phone] Care Team Providers Care Director Of Graduate Admissions Name Role Phone FITO HELLER Primary Care Provider [phone] [place], NURSING [facility] [phone] REASON FOR VISIT ABPM Removed Encounters Encounter Location Date Provider Diagnosis [address] [address] 09/22/2024 NURSING [place] PLAN OF TREATMENT Next Appt Details Provider Name:FITO ALFRED, 09/05/2025 01:45:00 PM, [address] [place] [address], [phone],
--- OUTSIDE RECORDS SUMMARY | 2025-02-07 09:15 | XMS_ITS ---
Author Organization [facility] Address [address] [place], [place] [phone] Care Team Providers Care Mathematician Name Role Phone PINA FITO Primary Care Provider [phone] ALLERGIES No Known Allergies RESULTS Component Value Reference Range Notes CT Chest without IV contrast Reviewed date:02/23/2025 01:13:43 PM Interpretation: Performing Lab: Notes/Report: REASON FOR VISIT 6mo F/U, would like flu vaccine MEDICATIONS Medication SIG (Take, Route, Frequency, Duration) Notes Start Date End Date Status amLODIPine Besylate 5 MG TAKE 1 AND 1/2 TAB BY MOUTH DAILY for 90 Active Pravastatin Sodium 10 MG TAKE 1 TABLET B Y MOUTH EVERY DAY for 90 Active metFORMIN HCl 500 MG TAKE 1 TO 2 TABLETS BY MOUTH EVERY DAY 90 for 90 Active Metoprolol Succinate ER 100 MG TAKE 1 TABLET BY MOUTH EVERY DAY FOR 90 DAYS for 90 Active Aspirin 81 81 MG 1 tablet Orally Once a day for 30 day(s) Active Losartan Potassium-HCTZ 50-12.5 MG TAKE 1 TABLET BY MOUTH TWICE A DAY for 90 Active Breo Ellipta 200-25 MCG/ACT 1 puff Inhal ation Once a day for 90 Active Montelukast Sodium 10 MG 1 tablet Orally Once a day for 30 day(s) Active SOCIAL HISTORY Tobacco Use: Social History Observation Description Date Details (start date - stop date) Never Smoker NA - NA Sex Assigned At : Social History Observation Description Sex Assigned At Unknown Smoking Question Answer Notes Are you a: never smoker Section Notes: pt never smoke PROBLEMS Problem Type ICD Code Onset Dates Problem Status W/U Status Risk SNOMED Code Notes Problem Irregular heart rate (I49.9) Active confirmed 585873467 VITAL SIGNS Height 66 in 02/07/2025 Weight 213 lbs 02/07/2025 Blood pressure systolic 186 mm Hg 02/08/20 25 Blood pressure diastolic 94 mm Hg 025 BMI 34.38 kg/m2 02/07/2025 Encounters Encounter Location Date Provider Diagnosis [facility] [address] [place] [address] 02/07/2025 FITO HELLER Essential (primary) hypertension I10 ; Disorder of lipoprotein metabolism, unspecified E78.9 ; Unspecified atrial fibrillation I48.91 ; Type 2 diabetes mellitus without complications E11.9 ; Obstructive sleep apnea (adult) (pediatric) G47.33 ; Nocturia R35.1 ; Nonrheumatic mitral valve disorder, unspecified I34.9 ; Lung nodules R91.8 and Irregular heart rate I49.9 ASSESSMENTS Encounter Date Diagnosis Assessment Notes Treatment Notes Treatment Clinical Notes Section Notes 02/07/2025 Essential (primary) hypertension (ICD-10 - I10) Blood pressure suboptimal control. Will set up a 24-hour blood pressure monitor. Exercise diet weight loss no added salt diet walk 30 minutes a day. 02/07/2025 Disorder of lipoprotein metabolism, unspecified (ICD-10 - E78.9) To be statin therapy check LFTs check lipid profile LDL goal optimally less than 70 02/07/2025 Unspecified atrial fibrillation (ICD-10 - I48.91) Stable check EKG no CHF no chest pain set up 24-hour Holter monitor 02/07/2025 Type 2 diabetes mellitus without complications (ICD-10 - E11.9) Of medication. Check A1c goal less than 7.0 diet exercise weight loss ophthalmology q. year 02/07/2025 Obstructive sleep apnea (adult) (pediatric) (ICD-10 - G47.33) Continue CPAP therapy 02/07/2025 Nocturia (ICD-10 - R35.1) 02/07/2025 Nonrheumatic mitral valve disorder, unspecified (ICD-10 - I34.9) Set up follow-up cardiac echo history of 02/07/2025 Lung nodules (ICD-10 - R91.8) Stable. No symptoms set up follow-up lung CT 02/07/2025 Irregular heart rate (ICD-10 - I49.9) PLAN OF TREATMENT Treatment Notes Assessment Notes Essential (primary) hypertension Blood p ressure suboptimal control. Will set up a 24-hour blood pressure monitor. Exercise diet weight loss no added salt diet walk 30 minutes a day. Disorder of lipoprotein meta bolism, unspecified To be statin therapy check LFTs check lipid profile LDL goal optimally less than 70 Unspecified atrial fibrillation Stable c heck EKG no CHF no chest pain set up 24-hour Holter monitor Type 2 diabetes mellitus wit hout complications Of medication. Check A1c goal less than 7.0 diet exercise weight loss ophthalmology q. year Obstructive sleep apnea (adult) (pediatr ic) Continue CPAP therapy Nonrheumatic mitral valve di sorder, unspecified Set up follow-up cardiac echo history of Lung nodules Stable. No symptoms set up follow-up lung CT Pending Test Test Name Order Date Holter Monitor 24 hour 02/07/2025 Future Test Test Name Order Date Immunoglobulin E, [id number] Next Appt Details Follow Up: Follow-up 6 month s labs pending 24-hour blood pressure monitor 24- hour Holter monitor. Flu shot with nursing, Reason: Provider Name:FITO ALFRED, 09/05/2025 01:45:00 PM, [address] [place], [address], Progress Notes * Examination Category Sub-Category Detail Notes Category Not es General Examination HEENT: Conjunctiva pink anicteric mucous membranes moist oropharynx clear TMs clear sinuses clear EACs clear fundi negative Neck: supple, no lymphaden opathy, no thyromegaly, no carotid bruit Heart: Regular rate and rhy thm 1/6 systolic murmur. 1 out of 6 diastolic murmur Lungs: clear to auscultatio n Abdomen: soft, non tender/non distended, no rebound tenderness, no guarding or rigidity, no masses palpated, no hepatosplenomegaly, normal active bowel sounds Extremities: no edema, pulses 2 p donn bilaterally General Appearance Pleasant well-develo ped well-nourished white male appearing stated age mildly overweight no apparent distress Skin: normal, no rash, antoine ign appearing moles Neuro alert and oriented x 3, CN 2-12 intact, motor 5/5 bilaterally proximally and distally in all 4 extremities, no focal abnormality Musculoskeletal Normal rheumatologic exam History and Physical Notes * HPI (History of Present Illness) Category Sub-Category Detail Notes Category Not es General Follow-up hyper tension. See review of systems below
--- OUTSIDE RECORDS SUMMARY | 2025-02-07 10:15 | XMS_ITS ---
Author Organization [facility] Address [address] [place], [place] [id number] Care Team Providers Care Equity Director Name Role Phone FITO HELLER Primary Care Provider [phone] [place], NURSING [facility] [phone] REASON FOR VISIT flu shot IMMUNIZATIONS Vaccine Route Administration Date Status Comme nts Influenza, Flublok IM Intramuscular 02/07/2025 Administere d Encounters Encounter Location Date Provider Diagnosis [address] [address] 02/07/2025 NURSING [place] Encounter for immunization Z23 ASSESSMENTS Encounter Date Diagnosis Assessment Notes Treatment Notes Treatment Clinical Notes Section Notes 02/07/2025 Encounter for immunization (ICD-10 - Z23) Influenza vaccine administered. Patient counseled and VIS sheet given. PLAN OF TREATMENT Treatment Notes Assessment Notes Encounter for immunization Influenza vac cine administered. Patient counseled and VIS sheet given. Next Appt Details Provider Name:FITO ALFRED, 09/05/2025 01:45:00 PM, [address] [place] [address], [phone],
--- OUTSIDE RECORDS SUMMARY | 2025-02-12 03:08 | XMS_ITS ---
Author Organization [facility] Address [address] [place], [place] [phone] Care Team Providers Care Medical Equipment Repair Technician Name Role Phone FITO HELLER Primary Care Provider REASON FOR VISIT Requesting CT order Encounters Encounter Location Date Provider Diagnosis [facility] [address] [place] [phone] 02/12/2025 FITO HELLER PLAN OF TREATMENT Next Appt Details Provider Name:FITO ALFRED, 09/05/2025 01:45:00 PM, [address] [place], [address],
--- OUTSIDE RECORDS SUMMARY | 2025-02-16 09:53 | XMS_ITS ---
Author Organization [facility] Address [address] [place], [place] [phone] Care Team Providers Care Practicing Md Anesthesiologist Name Role Phone FITO HELLER Primary Care Provider REASON FOR VISIT Echo Encounters Encounter Location Date Provider Diagnosis [address] [address] 02/16/2025 FITO HELLER PLAN OF TREATMENT Next Appt Details Provider Name:FITO ALFRED, 09/05/2025 01:45:00 PM, [address] [place], [address],
--- OUTSIDE RECORDS SUMMARY | 2025-02-23 08:12 | XMS_ITS ---
Author Organization [facility] Address [address] [place], [place] [phone] Care Team Providers Care Rn Integrated Name Role Phone FITO HELLER Primary Care Provider [phone] Results Encounters Encounter Location Date Provider Diagnosis [facility] [address] [place] [phone] 02/23/2025 FITO HELLER PLAN OF TREATMENT Next Appt Details Provider Name:FITO ALFRED, 09/05/2025 01:45:00 PM, [address] [place], [address],
--- OUTSIDE RECORDS SUMMARY | 2025-04-03 05:43 | XMS_ITS ---
Author Organization [facility] Address [address] [place], [place] [phone] Care Team Providers Care Thermo Cementing Folder Operator Name Role Phone FITO HELLER Primary Care Provider [place], [facility] [phone] REASON FOR VISIT Cancel Appointment Request Encounters Encounter Location Date Provider Diagnosis [address] [address] 04/03/2025 NURSING [place] PLAN OF TREATMENT Next Appt Details Provider Name:FITO ALFRED, 09/05/2025 01:45:00 PM, [address] [place] [address], [phone],
--- OUTSIDE RECORDS SUMMARY | 2025-04-06 03:45 | XMS_ITS ---
Author Organization [facility] Address [address] [place], [place] [id number] Care Team Providers Care Seo Specialist Name Role Phone FITO HELLER Primary Care Provider [phone] [place], NURSING [facility] [phone] REASON FOR VISIT Holter placement 24 hr Encounters Encounter Location Date Provider Diagnosis [address] [address] 04/06/2025 NURSING [place] PLAN OF TREATMENT Next Appt Details Provider Name:FITO ALFRED, 09/05/2025 01:45:00 PM, [address] [place] [address], [phone],
[2025-04-12 14:10] VITALS: BP 170/74; PULSE 67; O2SAT 97; BMI 34.0
--- NOTE | 2025-04-12 14:10 | A.OFFVIS_ITS ---
Vital Signs 04/12/25 14:10 Height 5 ft 7 in Weight 217 lb 2.485 oz BMI 34.0 BP 170/74 H Blood Pressure Location Rt brachial Position Sitting Pulse 67 Pulse Source Pulse Oximeter Pulse Oximetry (%) 97 Oxygen Delivery Method Room Air Intake Visit Reasons: cough Anthropological Linguist Required: No Accompanied by: Self / Same As Patient Allergies No Known Allergies Allergy (Verified 04/12/25 14:22) HPI Comments Details: The patient is a 59-year-old gentleman with a history of sleep apnea in addition to cardiac arrhythmias status post ablation who apparently been having worsening cough symptoms. The patient states that for the last 3-4 months he had been having worsening shortness breath and cough. Moderate severity. He was seen by primary care at 1 point was given a course of antibiotics that he did not see any significant improvement. His breathing got so bad over the winter that he went to the [facility]. There he had a chest x-ray which was without any acute disease. He did have blood work which I personally reviewed as well. His eosinophil count was up to 28% of his total white blood cell count and his absolute eosinophil count was 1900. That is significantly high. He was given prednisone symptoms improved. Now he is back to exercising some. He is almost back to baseline. He does have the rescue inhaler but does not use it too often. He was concerned about in a walker triggered his symptoms. Was not sure if it was CPAP. He does use distilled water. He denies any pets or any construction or demolition the house. He has never had allergy testing. 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 The patient does need to be on inhaled corticosteroid. He still has wheezing on examination. Will go ahead and request allergy testing at this time. In addition to that the patient did have a chest x-ray which I personally reviewed. It appears that he had smoked nodular opacity on his right hemithorax. Likely nipple shadow. At some point will have to repeat the x-ray to make sure if he continues to be abnormal he will need a CT scan of the chest. On examination the patient also had a diastolic murmur. He does have a cardiac history and has had multiple studies in the past. I will request his most recent echocardiogram from his primary care doctors otherwise will have to order an echocardiogram. I did reassure him that he should continue using the CPAP in ways to clean the machine to make sure to minimize exposures. 01/03/2024 the patient is here for a pulmonary follow-up visit. Overall the patient is doing okay. He did start the Breo inhaler at very affecting be neficial. He actually felt back to normal for the last 2 months. Then he stopped using the inhalers and was doing better. Quickly after that a few weeks he started noticing worsening shortness of breath cough and chest tightness. We did review his blood work. The patient does have significant eosinophilia also has an elevated IgE count consistent with allergic asthma. In addition to that he had a chest x-ray which we personally reviewed. His last chest x-ray demonstrated a nodular density around the right hemithorax. This was not mentioned in the report unfortunately. I did go back to see history and he did have a CT scan from 2014 demonstrating multiple pulmonary nodules. Therefore will request a CT scan of the chest at this time. The meantime he knows he has to go back on the Breo. He also benefit from Singulair. Hopefully if he does better we can looking to decreasing the dose from 200 mcg to 100 mcg which will probably be a better option for him. He is not interested in allergy shots at this time. The patient may be a good candidate for biologic therapy. but, if response reasonable to the to the inhaler therapy will continue with that. Also to note the patient does use CPAP. The CPAP therapy continues to be affecting beneficial. He does use the CPAP every night For more than 4 hours a night. 04/12/2025 the patient is here for pulmonary follow-up visit. Overall the patient is doing well from a respiratory status he is tolerating the Breo and also tolerating the Singulair. Has not had to use her rescue inhaler. Has not had any significant wheezing or coughing. The patient recently he has been having issues with ectopy and was start to have a little bit of atrial fibrillation. He is going to undergo a event monitor soon to see if this is an issue. He has been using the CPAP at nighttime. The CPAP therapy has been affecting beneficial he does use it for more than 4 hours a night. He typically because it [facility] The last time he went he was told that everything was okay. As far as imaging studies the patient did have a CT scan of the chest at [facility] back in February 2025 demonstrating stable pulmonary nodules. He does have a new nodule 3 mm in size. He will have another CAT scan sometime in the fall of 2025. Otherwise will follow-up after his CAT scan if any issues arise she can always call for an earlier assessment and recommendations. [facility] Medical History (Updated 01/03/24 @ 21:14 by Andrews Luu MD) IRINA on CPAP Pulmonary nodules Allergies Asthma Eosinophilia Hypertension Surgical History H/O prior ablation treatment Family History Mother Hypertension Social History Alcohol intake: current Comment: Socially Patient Tobacco Use Status: Never used Tobacco Review of Systems Const Denies fever(s) Eyes Reports no additional complaints ENT Reports nasal congestion Card Denies chest pain Resp Reports cough and Denies wheezing GI Reports no additional complaints Musc Reports no additional complaints Skin/Breast Denies rash Neuro Reports no additional complaints Endo Denies flushing Luis Carlos/Lymph Denies lymphadenopathy Aller/Immun Denies wheezing Physical Exam Vital Signs: Last Vital Signs Pulse 67 04/12/25 14:10 BP 170/74 H 04/12/25 14:10 Pulse Ox 97 04/12/25 14:10 Oxygen Delivery Method Room Air 04/12/25 14:10 BMI result Body Mass Index 34.0 Const General: comfortable HEENT Head: Yes normocephalic Neck Neck: Yes supple Chest Chest palpation & inspection: normal inspection of the chest Resp Effort & Inspection: normal respiratory effort Auscultation: clear to auscultation bilaterally and no wheezes Cardio Heart sounds: S1 normal heart sound present, S2 normal heart sound present and Murmur heart sound present diastolic soft and II/ GI Palpation (GI): Soft to palpation Skin General skin exam: no rashes or lesions noted Extrem General: Yes no clubbing, cyanosis or edema Assessment & Plan Assessment & Plan (1) Eosinophilia: Code(s): D72.10 - Eosinophilia, unspecified Category: Medical Qualifiers: Eosinophilia type: other eosinophilia Qualified Code(s): D72.19 - Other eosinophilia (2) Asthma: Code(s): J45.909 - Unspecified asthma, uncomplicated Category: Medical Qualifiers: Asthma complication type: uncomplicated Asthma persistence: persistent Asthma severity: moderate Qualified Code(s): J45.40 - Moderate persistent asthma, uncomplicated (3) Allergies: Code(s): T78.40XA - Allergy, unspecified, initial encounter Category: Medical Qualifiers: Encounter type: initial encounter Qualified Code(s): T78.40XA - Allergy, unspecified, initial encounter (4) Pulmonary nodules: Comment: based on CXR 08/[address] chest 2014 Code(s): R91.8 - Other nonspecific abnormal finding of lung field Category: Medical (5) IRINA on CPAP: Code(s): G47.33 - Obstructive sleep apnea (adult) (pediatric) Category: Medical Plan continue Breo NICOLASA as needed continue Singulair Nebulizer provided CT chest 1 yr [facility] F/U 12 months Orders: Orders CT chest wo IV con 03/04/26 R91.8 - Other nonspecific abnormal finding of lung field Coding Level of Care Code Est Pt Level 4 (41075) Diagnoses Other eosinophilia D72.19 Eosinophilia type: other eosinophilia Moderate persistent asthma without complication J45.40 Asthma complication type: uncomplicated Asthma persistence: persistent Asthma severity: moderate Allergy, initial encounter T78.40XA Encounter type: initial encounter Pulmonary nodules R91.8 [place]INA on CPAP G47.33 Time Spent (min) 16
--- OUTSIDE RECORDS SUMMARY | 2025-04-12 17:19 | XMS_ITS | Data Portability ---
Author Organization [place] - [facility], Allergy Address [address] [address] Care Team Providers Care Environmental Technical Officer Name Role Phone FITO HELLER Primary Care Provider Assessment Encounter Date Assessment Date Assessment LastModified by Organization Details LastModified Time 10/27/2024 10/27/2024 59-year-old male presents for evaluation of sinus infection. On examination he has significantly edematous nasal mucosa with purulent drainage. Exam and history are consistent with chronic sinus infection. Recommended a 21-day course of doxycycline and nasal steroid. He was instructed in side effects and proper use. Follow-up in 4 weeks for reevaluation. If persistent symptoms consider CT sinus. yuri Not available 10/27/2024 12:09:26 11/29/2024 11/29/2024 59-year-old male presents for reevaluation of chronic sinus infection. On examination his nasal mucosa is now pink and moist without congestion or purulent discharge. The nares are widely patent and there is no polyps or turbinate hypertrophy. Given he has recurrent sinus infection would recommend a CT sinus to rule out structural abnormality such as OMU occlusion. This will be ordered. If unremarkable could consider allergy testing though he does not seem to have significant seasonal allergies and this may not be strictly necessary. Follow-up after CT for review and further planning. yuri Not available 11/29/2024 09:32:40 02/07/2025 02/07/2025 Philip loera demonstrates recurrent sinus symptoms with nasal polyps and blocked ethmoid and sphenoid sinuses as seen on imaging. The polyps are likely contributing to his symptoms, potentially exacerbated by underlying allergies. I recommend initiating a more aggressive medical management approach. I will prescribe a five-day course of prednisone to reduce inflammation and shrink the polyps. Additionally, I will provide a liquid steroid rinse to be used with a squeeze bottle to flush the nasal passages and maintain symptom control. A two-week course of doxycycline will be prescribed to address any underlying infection. I will order blood work, including a CBC to evaluate eosinophil levels and an IgE level to assess for allergies. Allergy testing will also be conducted to identify potential triggers. Surgical intervention may be necessary if medical management fails to provide adequate relief. However, I will prioritize identifying and addressing underlying causes before proceeding with surgery. I will send a note to Dr. Hleler regarding the blood work orders to ensure coordination of care. The patient will follow up in approximately six weeks after completing the allergy testing and blood work. Also discuss elevated BP and differences in the each arm scarlet Not available 02/07/2025 10:09:03 03/23/2025 03/23/2025 Philip loera is a 59-year-old male with nasal polyps and significant allergies to grass, trees, dust, and weeds. He has a history of elevated eosinophils, white blood cell count, and IgE levels, which indicate a high risk for recurrence of nasal polyps. The patient has completed a course of antibiotics and has been using prednisone, montelukast, and nasal rinses, which have been effective in reducing the size of the nasal polyps and improving symptoms. On examination, the right nasal polyp has reduced from class 3 to class 2, and the left nasal polyp has reduced from class 1 to class 0.5. For long-term management, I recommend continuing with nasal rinses twice daily and montelukast. Allergy treatments, such as injections, may be considered if the patient can discontinue metoprolol, which is contraindicated for allergy shots. The patient is currently on three blood pressure medications, including metoprolol, and will need to discuss the possibility of discontinuing metoprolol with Dr. Heller. If allergy treatments are not feasible, injectable medications such as Nucala may be considered to block eosinophils and manage allergies and polyps. These injections would be administered at home every two weeks. Surgical intervention to remove the polyps may be considered if symptoms worsen, but it is not recommended at this time as the patient is feeling well. Prednisone will only be used sparingly for severe flare-ups, ideally no more than once or twice a year. FOLLOW-UP: The patient will continue with the current management plan and monitor symptoms through the winter. He will follow up as needed if symptoms worsen or if further intervention is required. scarlet Not available 03/23/2025 14:43:07 Plan of Treatment Reminders Order Date Submit Date Provider Last Modified By Organization Details Last Modified Time Details Appointments Test Results 15 2025 08:30A M LAYO GOOD MD Not available Not available Not available Lab ige, total, serum 2024 025 SHIKHA [facility] (Centralized Electronic Ordering - All Locations), Patient Can Go To The Location Of Their Choice, [id number] 02/09/2025 19:16:56 CBC w/ auto diff 2024 025 SHIKHA [facility] (Centralized Electronic Ordering - All Locations), Patient Can Go To The Location Of Their Choice, [id number] 02/09/2025 19:16:55 Referral None recorded. Procedures spirometr y, including graphic record, total and timed vital capacity, expirator y flow rate measureme nt(s) (PROC) 2024 025 [email or web address] Not available 02/16/2025 08:38:39 allergy testing, skin prick (PROC) 2024 025 [email or web address] 32 Not available 03/07/2025 12:09:56 intraderm al allergy skin testing (PROC) 2024 025 [email or web address] 32 Not available 03/07/2025 12:09:56 pulse oximetry (PROC) 2024 025 [email or web address] 32 Not available 03/07/2025 12:09:56 Surgeries None recorded. Imaging CT, sinuses, w/o contrast 2024 025 [email or web address] [facility], [address] [place] [address], [phone], 02/28/2025 10:21:08 CT, sinuses, w/o contrast 2024 025 [facility] [place] [address] [place], [address], 02/08/2025 16:40:01 Medication Orders prednison e 20 mg tablet 2024 025 [id number], [address] [place] [address], [id number], 02/28/2025 08:53:24 budesonid e 0.5 mg/2 mL suspensio n for nebulizat ion 2024 025 [id number], [address] [place] [address], [id number], 02/07/2025 10:03:02 doxycycli ne hyclate 100 mg tablet 2024 025 [id number] [address] [place] [address], [address], 02/28/2025 08:52:47 doxycycli ne hyclate 100 mg tablet 2024 025 [id number] [address] [place] [address], [id number], 02/28/2025 08:52:45 prednison e 20 mg tablet 2024 025 [id number] [address] [place] [address], [id number], 02/28/2025 08:53:21 Patient TargetsNo targets recorded. Patient Instructions Encounter Date Encounter Id Patient Instructions Last Modified By Organization Details Last Modified Time 02/07/2025 [id number] - Complete the prescribed five-day course of prednisone. - Use the liquid steroid rinse as directed. - Take doxycycline for two weeks. - Coordinate with Dr. Heller to complete blood work. - Maintain CPAP machine cleanliness to avoid mold exposure. - Return for follow-up in six weeks after completing allergy testing and blood work. scarlet Not available 02/07/2025 10:07:00 Please note: Parts of this encounter note have been generated by AI based on audio conversation. Patient consent was required prior to utilizing this technology. Content review was required prior to finalizing the note. [email or web address] Not available 02/07/2025 10:07:00 02/28/2025 [id number] spirometry testing* [email or web address] Not available 02/28/2025 13:46:04 03/23/2025 [id number] - Continue using nasal rinse twice daily. - Continue taking montelukast and other asthma medications. - Discuss with Dr. Heller the possibility of discontinuing metoprolol to allow for allergy injections. - Monitor symptoms through the winter and follow up if symptoms worsen. - Consider injectable medications like Nucala if allergy treatments are not feasible. [email or web address] Not available 03/23/2025 14:43:07 Please note: Parts of this encounter note have been generated by AI based on audio conversation. Patient consent was required prior to utilizing this technology. Content review was required prior to finalizing the note. [email or web address] Not available 03/23/2025 14:43:07 Reason for Referral None Reported. Results Created Date Observation Date Name Description Value Unit Range Abnormal Flag Note LastModifiedBy Organization Detail LastModifiedTime 02/08/2002/08/2025 CBC WITH DIFFE RENTI AL/PL ATELE T WBC 6.6 x10e3 /uL 3.4-10 .8 normal Not Available [facility] ([facility]) [address] [place], [address], 02/09/2025 19:16:55 02/08/2002/08/2025 CBC WITH DIFFE RENTI AL/PL ATELE T RBC 5.11 x10e6 /uL 4.14-5 .80 normal Not Available [facility] ([facility]) [address] [place], [address], 02/09/2025 19:16:55 02/08/2002/08/2025 CBC WITH DIFFE RENTI AL/PL ATELE T hemoglobin 15.7 g/dL 13.0-1 7.7 normal Not Available [facility] ([facility]) [address] [place], [address], 02/09/2025 19:16:55 02/08/20 25 02/08/2025 CBC WITH DIFFE RENTI AL/PL ATELE T hematocrit 46.1 % 37.5-5 1.0 normal Not Available [facility] ([facility]) [address] [place], [address], 02/09/2025 19:16:55 02/08/2002/08/2025 CBC WITH DIFFE RENTI AL/PL ATELE T MCV 90 fL 79-97 normal Not Available [facility] ([facility]) [address] [place], [address], 02/09/2025 19:16:55 02/08/2002/08/2025 CBC WITH DIFFE RENTI AL/PL ATELE T MCH 30.7 pg 26.6-3 3.0 normal Not Available [facility] ([facility]) [address] [place], [address], 02/09/2025 19:16:55 02/08/20 25 02/08/2025 CBC WITH DIFFE RENTI AL/PL ATELE T MCHC 34.1 g/dL 31.5-3 5.7 normal Not Available [facility] ([facility]) [address] [place], [address], 02/09/2025 19:16:55 02/08/2002/08/2025 CBC WITH DIFFE RENTI AL/PL ATELE T RDW 12.9 % 11.6-1 5.4 Not Available [facility] ([facility]) [address] [place], [address], 02/09/2025 19:16:55 02/08/20 25 02/08/2025 CBC WITH DIFFE RENTI AL/PL ATELE T platelets 252 x10e3 /uL 150-45 0 normal Not Available [facility] ([facility]) [address] [place], [address], 02/09/2025 19:16:55 02/08/20 25 02/08/2025 CBC WITH DIFFE RENTI AL/PL ATELE T neutrophils 59 % not estab. normal Not Available [facility] ([facility]) [address] [facility], , [address], 02/09/2025 19:16:55 02/08/20 25 02/08/2025 CBC WITH DIFFE RENTI AL/PL ATELE T lymphs 21 % not estab. normal Not Available [facility] ([facility]) [address] [facility], , [address], 02/09/2025 19:16:55 02/08/20 25 02/08/2025 CBC WITH DIFFE RENTI AL/PL ATELE T monocytes 6 % not estab. normal Not Available [facility] ([facility]) [address] [facility], , [address], 02/09/2025 19:16:55 02/08/20 25 02/08/2025 CBC WITH DIFFE RENTI AL/PL ATELE T eos 12 % not estab. normal Not Available [facility] ([facility]) [address] [facility], , [address], 02/09/2025 19:16:55 02/08/20 25 02/08/2025 CBC WITH DIFFE RENTI AL/PL ATELE T basos 1 % not estab. normal Not Available [facility] (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) [address] [place], [address], 02/09/2025 19:16:55 02/08/20 25 02/08/2025 CBC WITH DIFFE RENTI AL/PL ATELE T neutrophils (absolute) 3.9 x10e3 /uL 1.4-7. 0 normal Not Available [facility] ([facility]) [address] [facility], , [address], 02/09/2025 19:16:55 02/08/20 25 02/08/2025 CBC WITH DIFFE RENTI AL/PL ATELE T lymphs (absolute) 1.4 x10e3 /uL 0.7-3. 1 normal Not Available [facility] ([facility]) [address] [facility], , [address], 02/09/2025 19:16:55 02/08/20 25 02/08/2025 CBC WITH DIFFE RENTI AL/PL ATELE T monocytes(ab solute) 0.4 x10e3 /uL 0.1-0. 9 normal Not Available [facility] ([facility]) [address] [facility], , [address], 02/09/2025 19:16:55 02/08/20 25 02/08/2025 CBC WITH DIFFE RENTI AL/PL ATELE T eos (absolute) 0.8 x10e3 /uL 0.0-0. 4 above high normal Not Available [facility] ([facility]) [address] [facility], , [address], 02/09/2025 19:16:55 02/08/20 25 02/08/2025 CBC WITH DIFFE RENTI AL/PL ATELE T baso (absolute) 0.1 x10e3 /uL 0.0-0. 2 normal Not Available [facility] ([facility]) [address] [place], [address], 02/09/2025 19:16:55 02/08/20 25 02/08/2025 CBC WITH DIFFE RENTI AL/PL ATELE T immature granulocytes 1 % not estab. Not Available [facility] ([facility]) [address] [place], [address], 02/09/2025 19:16:55 02/08/20 25 02/08/2025 CBC WITH DIFFE RENTI AL/PL ATELE T immature grans (abs) 0.1 x10e3 /uL 0.0-0. 1 Not Available [facility] ([facility]) [address] [facility], , [address], 02/09/2025 19:16:55 02/08/20 25 02/08/2025 CBC WITH DIFFE RENTI AL/PL ATELE T NRBC DIRECTOR [employer] Not Available [facility] ([facility]) [address] [facility], , [address], 02/09/2025 19:16:55 02/08/20 25 02/08/2025 CBC WITH DIFFE RENTI AL/PL ATELE T hematology comments: DIRECTOR [employer] MARK[employer]ING Not Available [facility] ([facility]) [address] [facility], , [address], 02/09/2025 19:16:55 02/08/20 25 02/09/2025 IMMUN OGLOB ULIN E, TOTAL immunoglobul in E, total 518 IU/mL 6-495 above high normal Not Available [facility] ([facility]) [address] [facility], , [address], 02/09/2025 19:16:56 02/08/[address], sinus es, w/o contr ast No observ ation record ed. [facility] [address], [address], 02/07/2025 09:57:41 02/08/[address], sinus es, w/o contr ast No observ ation record ed. [facility] [address], [address], 02/07/2025 10:02:46 02/12/20 25 02/07/2025 CT, sinus es, w/o contr ast No observ ation record ed. [facility] [address], [place], [address], 02/11/2025 15:11:29 02/29/2001/26/2024 vera jessica testi ng* No observ ation record ed. [facility] [id number] 03/01/2025 11:49:16 Result Notes None recorded. Problems Name Problem SNOMED Code Status Onset Date Resolution Date Notes Provider Name and Address Organization Details Recorded Time Impacted cerumen in right ear 12783266112 97375 Active 2023 Impacted cerumen, right ear; Note: Date Diagnosed : 08/12/2023 12:22 PM (H61.21) Not Available [facility] 03:00:00 Sensorine ural hearing loss of bilateral ears 461596238 Active 2023 Sensorine ural hearing loss, bilateral ; Note: Date Diagnosed : 08/12/2023 1:09 PM (H90.3) Not Available [facility] 4 03:00:01 Chronic maxillary sinusitis 20467604 Active 2024 TEJAL LOVE PA-C [address] [facility],[place] [address], [place], [address] , [facility] - [facility] [place] 12:09:34 Acute sinusitis 75009443 Active 2024 LAYO RHODES MD 100 [facility],[place] [address], [place], [address] , [facility] - [facility] [place] 5 12:25:03 Chronic sinusitis 35309805 Active 2024 LAYO RHODES MD 100 [facility],[place] [address], [place], [address] , [facility] - [facility] [place] 5 09:57:37 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 143387306 Active 2024 LAYO RHODES MD 100 [facility],[place] [address], [place], [address] , [facility] - [facility] [place] 5 09:57:46 Polyp of nasal cavity 792599498 Active 2024 LAYO RHODES MD 100 [facility],[place] [address], [place], [address] , [facility] 5 10:02:00 Essential hypertens ion 52308035 Active 2024 LAYO RHODES MD 100 [facility],[place] [address], [place], [address] , [facility] 5 10:06:42 Eosinophi l count above reference range 982916932 Active 2024 LAYO RHODES MD 100 [facility],[place] [address], [facility] [place], [address] , [facility] 14:42:35 Deviated nasal septum 746793687 Active 2024 LAYO RHODES MD 100 [facility],[place] [address], [place], [address] , [facility] 14:42:40 Problem Notes None recorded. Procedures Surgical History Date Name Laterality Status Provider Name and Address Organization Details Recorded Time JMSNasal/Sinus Endoscopy completed LAYO GARCIA MD 100 [facility],[address], [address], [facility] 03/23/2025 14:42:07 5 Allergy Testing-Full completed FIONA TANNER, RACHELLE 100 [facility],[address], [address], [facility] 02/28/2025 10:31:13 5 JMSNasal/Sinus Endoscopy completed LAYO GARCIA MD 100 [facility],[address], [address], [facility] 02/07/2025 10:06:23 Imaging Results None recorded. Procedure Notes None recorded. Medical Equipment None Reported. Allergies No known drug allergies Medications Name Sig Start Date Stop Date Status Note LastModified by Organization Details LastModified Time metformin 500 mg tablet TAKE 1 TO 2 TABLETS BY MOUTH EVERY DAY active Not Available Not Available No t Available prednisone 10 mg tablet 4 TABLETS BY MOUTH DAILYX 2 DAYS, 3 TABS X2 DAYS, 2 TABS X 2 DAYS, THEN 1 TAB ONCE A DAY FOR 2 DAYS 02/07 completed Not Available Not Available Not Available prednisone 20 mg tablet TAKE 3 TABLETS BY MOUTH DAILY FOR 3 DAYS 02/28 completed Not Available Not Available Not Available metoprolol succinate ER 100 mg tablet,exte nded release 24 hr TAKE 1 TABLET BY MOUTH EVERY DAY active Not Available Not Available No t Available amlodipine 5 mg tablet TAKE 1 AND 1/2 TAB BY MOUTH DAILY active Not Available Not Available No t Available omeprazole 40 mg capsule,del ayed release TAKE 1 CAPSULE BY MOUTH EVERY DAY 30 MINUTES BEFORE MORNING MEAL FOR 30 DAYS 03/22 completed Not Available Not Available Not Available amoxicillin 875 mg tablet TAKE 1 TABLET BY MOUTH TWICE A DAY FOR 10 DAYS 02/07 completed Not Available Not Available Not Available pravastatin 10 mg tablet TAKE 1 TABLET BY MOUTH EVERY DAY active Not Available Not Available No t Available budesonide 0.5 mg/2 mL suspension for nebulizatio n PLEASE SEE ATTACHED FOR DETAILED DIRECTION S active Not Available Not Available No t Available montelukast 10 mg tablet TAKE 1 TABLET BY MOUTH EVERYDAY AT BEDTIME active Not Available Not Available No t Available methylpredn isolone 4 mg tablets in a dose pack TAKE 6 TABLETS ON DAY 1 DIRECTED ON PACKAGE AND DECREASE BY 1 TAB EACH DAY FOR A TOTAL OF 6 DAYS 02/07 completed Not Available Not Available Not Available losartan 50 mg-hydrochl orothiazide 12.5 mg tablet TAKE 1 TABLET BY MOUTH TWICE A DAY active Not Available Not Available No t Available nifedipine ER 60 mg tablet,exte nded release TAKE 1 TABLET BY MOUTH EVERY DAY 05/07 completed Not Available Not Available Not Available doxycycline hyclate 100 mg tablet TAKE 1 TABLET BY MOUTH TWICE DAILY FOR 10 DAYS 02/28 completed Not Available Not Available Not Available Breo Ellipta 200 mcg-25 mcg/dose powder for inhalation INHALE 1 INHALATIO N BY MOUTH EVERY DAY active Not Available Not Available No t Available Vitals Date Recorded Body height Body mass index (BMI) Body weight Provider Name and Address Organization Details Last Updated DateTime 10/27/2024 170.18 cm 32.4 kg/m2 58612.62 g Andra Solis [facility] 10/27/2024 11:30:21 Date Recorded Body height Body mass index (BMI) Body weight Provider Name and Address Organization Details Last Updated DateTime 11/29/2024 170.18 cm 32.4 kg/m2 96657.62 g Jamil Preciado [facility] 11/29/2024 08:37:33 Date Recorded Heart rate Systolic And Diastolic Provider Name and Address Organization Details Last Updated DateTime 02/07/2025 73 /min 176/93 mm[Hg] LAYO GARCIA MD [address] [place] [address], [id number], [facility] 02/07/2025 10:07:44 Date Recorded Body height Body mass index (BMI) Body weight Heart rate Systolic And Diastolic Provider Name and Address Organization Details Last Updated DateTime 02/28/2025 170.18 cm 32.1 kg/m2 06174.44 g 95 /min 177/85 mm[Hg] FIONA TANNER RN [address] [place] [address], [place], [address] , [facility] 02/28/2025 08:53:33 Date Recorded Body height Body mass index (BMI) Body weight Systolic And Diastolic Provider Name and Address Organization Details Last Updated DateTime 03/23/2025 170.18 cm 32.1 kg/m2 56976.44 g 184/98 mm[Hg] Agatha Pineda [facility] 03/23/2025 14:27:07 Social History Question Answer Notes LastModified by Organizat ion Details LastModified Time Tobacco Smoking Status Never Smoker Agatha bo [facility] 02/07/2025 09:35:11 How Many Years Have You Consumed Alcohol? 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 None Information not available 10/27/2024 How Many Alcoholic Drinks Do You Consume Per Day On Average? 0 Information not available 10/27/2024 Do You Have Any Pets? No Information not available 10/27/2024 Are You Passively Exposed To Smoke? No Information not available 10/27/2024 Are There Any Smokers In Your House? No Information not available 10/27/2024 Sex: Unknown Functional Status Question Answer Note LastModified by Organizat ion Details LastModified Time How many times per week do you consume alcohol? 1-2 times per week Information not available 10/27/2024 Do you use any illicit or recreational drugs? No Information not available 10/27/2024 Do you or have you ever used any other forms of tobacco or nicotine? No Information not available 10/27/2024 What is your level of alcohol consumption? 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 Firearms Information not available 10/27/2024 Mental Status None recorded. Family History Nothing Reported. Medical History Condition Response Allergies/Hayfever N Heart Problems Y Anxiety N Tonsil Infections N Emphysema N Migraines N Thyroid Problems N Depression N COPD N Developmental Delay N Glaucoma N Nasal or Sinus Problems Y Anemia N Immune System Disorder N Anesthesia Complications N Heart Attack ([place]) N Other Skin Condition N Diabetes Y Rhinitis N Bleeding Disorder N Food Allergy N Hearing Loss N Arthritis N Hyperlipidemia N Eczema N Cancer N Stroke N Dementia N Nasal polyps Y Asthma N Sleep Disorder Y High Cholesterol N GERD/Reflux N Liver Disease N Headaches N Fibromyalgia N Hypertension Y Speech Delay N Kidney Disease N Past Encounters Encounter ID Performer Location Encounter Start Date Encounter Closed Date Diagnosis/Indication Diagnosis SNOMED-CT Code Diagnosis ICD10 Code Diagnosis IMO Codes Diagnosis Note [id number] TEJAL LOVE PA-C [facility] [address] [address] 10/27/2024 11:19:56 10/27/2024 12:11:18 Chronic maxillary sinusitis 40208085 J32.0 2493 Acute sinusitis 48514607 J01.80 [id number] TEJAL LOVE PA-C [facility] [address] [address] 11/29/2024 08:33:15 11/29/2024 09:18:49 Acute sinusitis 63823904 J01.80 897322834 Chronic ryley xijesicaary sinusitis 16238263 J32.0 2493 [id number] LAYO RHODES MD [facility] [address] [address] 02/07/2025 09:12:54 02/07/2025 10:10:51 Chronic sinusitis 02805361 J32.8 59218 Polyp of nasal cavity 73 1891023 J33.0 Essential hypertension 42096966 I10 26916 Has f/u today with PCP. Previously noted to have different BP in both arms and white coat symptoms He was 196/93 in the left arm and 176/93 in the right arm. He does see cardiology given his history of atrial fibrillati on. He will discuss this afternoon with Dr. Heller whether additional workup needs to be done given the asymmetry and blood pressures. [id number] FIONA TANNER RN Allergy [address] [place] [address] 02/28/2025 08:37:15 02/28/2025 10:32:04 Chronic sinusitis 11622725 J32.8 22285 [id number] LAYO RHODES MD [facility] [address] [address] 03/23/2025 14:09:39 03/23/2025 14:46:27 Chronic sinusitis 66892501 J32.8 32773 Polyp of n genesis cavity and/or nasal sinus 101498259 J33.9 25413 Eosinophil count above reference range 774731555 R89.8 58734 Deviated nasal septum 12 1075305 J34.2 939735 Health Concerns Section Related Observation LastModified by Organization Detai ls LastModified Time None Recorded Concern Status LastModified by Organization Details LastModified Time None Recorded Advance Directives Directive None Recorded Payers Insurance Date Sequence Insurance Name Policy Number Policy Marte Covered Member ID Marte Member ID Guarantor Name 10/26/2024 1 [facility] IN[facility] (INDEMNITY) [id number] Philip Downs [id number] Philip Downs 03/23/2025 1 [facility] PHCS (PPO) [id number] Philip Downs [id number] Philip Downs Notes Date Note Type Note Provider Name and Address Organization Details Recorded Time 10/27/2024 text/html ROS as noted in the [facility] 59-year-old male presents for evaluation of sinus infection. This began in April when he had facial pain and pressure across his forehead and cheekbones. He was evaluated at urgent care and prescribed prednisone. This was not helpful. He does not like to go to the doctor and waited until August to go to his primary care. He was prescribed 10 days of amoxicillin and additional steroids. This did clearly are his symptoms fully for about 3 weeks when they returned mostly on the right side. He has no sense of smell but taste is intact. He is blowing his nose constantly of thick nasal drainage. LAYO GARCIA MD [address], [address], [facility] 10/27/2024 12:25:10 11/29/2024 text/html ROS as noted in the [facility] 59-year-old male presents for reevaluation of chronic sinus infection. He was prescribed 21 days of doxycycline and prednisone and used 4 weeks of Flonase. He feels completely improved. He states he has not had a sinus infection last that long before but does frequently get sinus infections over the winter. Sense of smell and taste are intact. Does not feel he has significant seasonal allergies. LAYO GARCIA MD [address] [place] [address], [phone], [facility] - [facility] 11/29/2024 12:36:01 02/07/2025 text/html Philip Downs is a 59-year-old male who presents for sinus-related symptoms. He reports experiencing recurrent symptoms for nearly a year, with temporary relief following antibiotic treatment. Symptoms typically return approximately two months after completing antibiotics. He has a history of asthma managed with [facility] and has been under the care of Dr. Luu for reactive airway disease for about a year and a half. He denies childhood asthma. He has previously been prescribed prednisone, with the last course taken in October. He also completed a course of doxycycline in November. He uses a CPAP machine for sleep apnea and ensures the mask is kept clean to avoid mold exposure. He has a history of atrial fibrillation treated with ablation in 2014 and sees a spinning lathe operator every six months. He denies current use of blood thinners. LAYO GARCIA MD [address] [place] [address], [phone], [facility] - [facility] 02/07/2025 10:10:17 03/23/2025 text/html Philip Downs is a 59-year-old male who presents for follow-up regarding nasal polyps and allergies. He has a history of elevated eosinophils, white blood cell count, and IgE levels, which are markers of allergy. He has significant allergies to grass, trees, dust, and weeds. He has completed a course of antibiotics and has been using prednisone, montelukast, and nasal rinses, which have been helpful in managing his symptoms. He reports feeling normal and has been able to perform activities such as yard work without experiencing allergy symptoms. He is currently on metoprolol and two other blood pressure medications following an ablation procedure. He has been monitoring his blood pressure at home, which was 136/64 with a heart rate of 54 prior to the visit. He is retired and previously worked at the [employer] in [place]. LAYO GARCIA MD [address] [place] [address],[address], [address], [facility] - [facility] 03/23/2025 14:44:25
--- OUTSIDE RECORDS SUMMARY | 2025-04-12 17:20 | XMS_ITS | Continuity of Care Document ---
Author Organization [place] - [facility], [facility] Address [address] [place] [address] Care Team Providers Care Field Rep Name Role Phone FITO HELLER Primary Care Provider [phone] Assessment Encounter Date Assessment Date Assessment LastModified by Organization Details LastModified Time 02/07/2025 02/07/2025 Philip Veganallelyluz maria demonstrates recurrent sinus symptoms with nasal polyps [...] I will send a note to Dr. Heller regarding the blood work orders to ensure coordination of care. The patient will follow up in approximately six weeks after completing the allergy testing and blood work. Also discuss elevated BP and differences in the each arm scarlet Not available 02/07/2025 10:09:03 Plan of Treatment Reminders Order Date Submit Date Provider Last Modified By Organization Details Last Modified Time Details Appointments Test Results 15 2025 08:30A Hortencia GOOD MD Not available Not available Not available Lab ige, total, serum 2024 025 SHIKHA [facility] (Centralized Electronic Ordering - All Locations), Patient Can Go To The Location Of Their Choice, 02/09/2025 19:16:56 CBC w/ auto diff 2024 025 SHIKHA [facility] (Centralized Electronic Ordering - All Locations), Patient Can Go To The Location Of Their Choice, 02/09/2025 19:16:55 Referral None recorded. Procedures spirometr [...] Imaging CT, sinuses, w/o contrast 2024 025 [email or web address] [facility], [address] [place] [address], [phone], 02/28/2025 10:21:08 CT, sinuses, w/o contrast 2024 025 [facility], [address] [place] [address], [phone], 02/08/2025 16:40:01 Medication Orders prednison e 20 mg tablet 2024 025 [facility] #[id number], [address] [place], [address], 02/28/2025 08:53:24 budesonid e 0.5 mg/2 mL suspensio n for nebulizat ion 2024 025 [facility] #[id number], [address] [place] [address], [address], 02/07/2025 10:03:02 doxycycli ne hyclate 100 mg tablet 2024 025 [facility] #[id number], [address] [place], [address], 02/28/2025 08:52:47 Patient TargetsNo targets recorded. Patient Instructions Encounter Date Encounter Id Patient Instructions Last Modified By Organization Details Last Modified Time 02/07/2025 [id number] - Complete the prescribed five-day course of [...] was required prior to finalizing the note. scarlet Not available 02/07/2025 10:07:00 Reason for Referral None Reported. Results Created Date Observation Date Name Description Value Unit Range Abnormal Flag Note LastModifiedBy Organization Detail LastModifiedTime 02/08/2002/08/2025 CBC WITH DIFFE RENTI AL/PL ATELE T WBC 6.6 x10e3 /uL 3.4-10 .8 normal Not Available [facility] ([facility]) [address] [place], [address], 02/09/2025 19:16:55 02/08/2002/08/2025 CBC WITH DIFFE RENTI AL/PL ATELE T RBC 5.11 x10e6 /uL 4.14-5 .80 normal Not Available [facility] ([facility]) [address] [facility], [place], [address], 02/09/2025 19:16:55 02/08/20 25 02/08/2025 CBC WITH DIFFE RENTI AL/PL ATELE T hemoglobin 15.7 g/dL 13.0-1 7.7 normal Not Available [facility] ([facility]) [address] [place], [address], 02/09/2025 19:16:55 02/08/2002/08/2025 CBC WITH DIFFE RENTI AL/PL ATELE T hematocrit 46.1 % 37.5-5 1.0 normal Not Available [facility] ([facility]) [address] [place], [address], 02/09/2025 19:16:55 02/08/2002/08/2025 CBC WITH DIFFE RENTI AL/PL ATELE T MCV 90 fL 79-97 normal Not Available [facility] ([facility]) [address] [place], [address], 02/09/2025 19:16:55 02/08/2002/08/2025 CBC WITH DIFFE RENTI AL/PL ATELE T MCH 30.7 pg 26.6-3 3.0 normal Not Available [facility] ([facility]) [address] [place], [address], 02/09/2025 19:16:55 02/08/2002/08/2025 CBC WITH DIFFE RENTI AL/PL ATELE T MCHC 34.1 g/dL 31.5-3 5.7 normal Not Available [facility] ([facility]) [address] [place], [address], 02/09/2025 19:16:55 02/08/2002/08/2025 CBC WITH DIFFE RENTI AL/PL ATELE T RDW 12.9 % 11.6-1 5.4 Not Available [facility] ([facility]) [address] [place], [address], 02/09/2025 19:16:55 02/08/20 25 02/08/2025 CBC WITH DIFFE RENTI AL/PL ATELE T platelets 252 x10e3 /uL 150-45 0 normal Not Available [facility] ([facility]) [address] [facility], [place], [address], 02/09/2025 19:16:55 02/08/20 25 02/08/2025 CBC WITH DIFFE RENTI AL/PL ATELE T neutrophils 59 % not estab. normal Not Available [facility] ([facility]) [address] [facility], [place], [address], 02/09/2025 19:16:55 02/08/2002/08/2025 CBC WITH DIFFE RENTI AL/PL ATELE T lymphs 21 % not estab. normal Not Available [facility] ([facility]) [address] [facility], [place], [address], 02/09/2025 19:16:55 02/08/20 25 02/08/2025 CBC WITH DIFFE RENTI AL/PL ATELE T monocytes 6 % not estab. normal Not Available [facility] ([facility]) [address] [facility], [place], [address], 02/09/2025 19:16:55 02/08/20 25 02/08/2025 CBC WITH DIFFE RENTI AL/PL ATELE T eos 12 % not estab. normal Not Available [facility] ([facility]) [address] [facility], [place], [address], 02/09/2025 19:16:55 02/08/20 25 02/08/2025 CBC WITH DIFFE RENTI AL/PL ATELE T basos 1 % not estab. normal Not Available [facility] ([facility]) [address] [facility], [place], [address], 02/09/2025 19:16:55 02/08/20 25 02/08/2025 CBC WITH DIFFE RENTI AL/PL ATELE T immature cells AQUA AMMONIA OPERATOR Not Available [facility] ([facility]) [address] [place], [address], 02/09/2025 19:16:55 02/08/20 25 02/08/2025 CBC WITH DIFFE RENTI AL/PL ATELE T neutrophils (absolute) 3.9 x10e3 /uL 1.4-7. 0 normal Not Available [facility] ([facility]) [address] [place], [address], 02/09/2025 19:16:55 02/08/20 25 02/08/2025 CBC WITH DIFFE RENTI AL/PL ATELE T lymphs (absolute) 1.4 x10e3 /uL 0.7-3. 1 normal Not Available [facility] ([facility]) [address] [place], [address], 02/09/2025 19:16:55 02/08/20 25 02/08/2025 CBC WITH DIFFE RENTI AL/PL ATELE T monocytes(ab solute) 0.4 x10e3 /uL 0.1-0. 9 normal Not Available [facility] ([facility]) [address] [place], [address], 02/09/2025 19:16:55 02/08/20 25 02/08/2025 CBC WITH DIFFE RENTI AL/PL ATELE T eos (absolute) 0.8 x10e3 /uL 0.0-0. 4 above high normal Not Available [facility] ([facility]) [address] [place], [address], 02/09/2025 19:16:55 02/08/20 25 02/08/2025 CBC WITH DIFFE RENTI AL/PL ATELE T baso (absolute) 0.1 x10e3 /uL 0.0-0. 2 normal Not Available [facility] ([facility]) [address] [place], [address], 02/09/2025 19:16:55 02/08/20 25 02/08/2025 CBC WITH DIFFE RENTI AL/PL ATELE T immature granulocytes 1 % not estab. Not Available [facility] ([facility]) [address] [facility], [place], [address], 02/09/2025 19:16:55 02/08/20 25 02/08/2025 CBC WITH DIFFE RENTI AL/PL ATELE T immature grans (abs) 0.1 x10e3 /uL 0.0-0. 1 Not Available [facility] ([facility]) [address] [facility], [place], [address], 02/09/2025 19:16:55 02/08/20 25 02/08/2025 CBC WITH DIFFE RENTI AL/PL ATELE T NRBC AQUA AMMONIA OPERATOR Not Available [facility] ([facility]) [address] [facility], [place], [address], 02/09/2025 19:16:55 02/08/20 25 02/08/2025 CBC WITH DIFFE RENTI AL/PL ATELE T hematology comments: AQUA AMMONIA OPERATOR Not Available [facility] ([facility]) [address] [facility], [place], [address], 02/09/2025 19:16:55 02/08/20 25 02/09/2025 IMMUN OGLOB ULIN E, TOTAL immunoglobul in E, total 518 IU/mL 6-495 above high normal Not Available [facility] ([facility]) [address] [facility], [place], [address], 02/09/2025 19:16:56 02/08/[address], sinus es, w/o contr ast No observ ation record ed. [email or web address] [facility] [address], [place], [address], 02/07/2025 09:57:41 02/08/[address], sinus es, w/o contr ast No observ ation record ed. [facility] [address] [place], [address], 02/07/2025 10:02:46 02/12/20 25 02/07/2025 CT, sinus es, w/o contr ast No observ ation record ed. [facility] [address] [facility] 100, [place], [address], 02/11/2025 15:11:29 02/29/20 25 01/26/2024 vera metry testi ng* No observ ation record ed. [email or web address] [facility] [id number] 03/01/2025 11:49:16 Result Notes None recorded. Problems Name Problem SNOMED Code Status Onset Date Resolution Date Notes Provider Name and Address Organization Details Recorded Time Impacted cerumen in right ear 29145947678 63276 Active 2023 Impacted cerumen, right ear; Note: Date Diagnosed : 08/12/2023 12:22 PM (H61.21) Not Available [facility] 4 03:00:00 Sensorine ural hearing loss of bilateral ears 310902434 Active 2023 Sensorine ural hearing loss, bilateral ; Note: Date Diagnosed : 08/12/2023 1:09 PM (H90.3) Not Available [facility] 4 03:00:01 Chronic maxillary sinusitis 81246441 Active 2024 TEJAL LOVE PA-C [address] [place] [address], [place], [address] , [place] - [facility] 5 12:09:34 Acute sinusitis 00125782 Active 2024 LYAO RHODES MD [address] [place] [address], [place], [address] , [place] [facility] 5 12:25:03 Chronic sinusitis 12558237 Active 2024 LAYO RHODES MD [address] [place] [address], [place], [address] , [facility] - [facility] [place] 5 09:57:37 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 560217412 Active 2024 LAYO RHODES MD 100 [facility] 100, [place], [address] , [facility] - [facility] 09:57:46 Polyp of nasal cavity 918654312 Active 2024 LAYO RHODES MD 100 [facility] 100, [place], [address] , [facility] - [facility] 5 10:02:00 Essential hypertens ion 57159140 Active 2024 LAYO RHODES MD 100 [facility],[place] [address], [place], [address] , [facility] - [facility] 5 10:06:42 Eosinophi l count above reference range 119447792 Active 2024 LAYO RHODES MD 100 [facility],[place] [address], [place], [address] , [facility] - [facility] 14:42:35 Deviated nasal septum 960178554 Active 2024 LAYO RHODES MD 100 [facility],[place] [address], [place], [address] , [facility] - [facility] 14:42:40 Problem Notes None recorded. Procedures Surgical History Date Name Laterality Status Provider Name and Address Organization Details Recorded Time JMSNasal/Sinus Endoscopy completed LAYO GARCIA MD 100 [facility],[place] [address], [place], [address], [facility] 03/23/2025 14:42:07 Allergy Testing-Full completed FIONA TANNER RN 100 [facility] 100, [place], [address], [facility] 02/28/2025 10:31:13 JMSNasal/Sinus Endoscopy completed LAYO GARCIA MD 100 [facility],[place] [address], [place], [address], [facility] - [facility] 02/07/2025 10:06:23 Imaging Results None recorded. Procedure [...] Available No t Available Vitals Date Recorded Heart rate Systolic And Diastolic Provider Name and Address Organization Details Last Updated DateTime 02/07/2025 73 /min 176/93 mm[Hg] LAYO GARCIA MD [address] [place] [address],[address], [address], [place] - [facility] 02/07/2025 10:07:44 Social History Question Answer Notes LastModified by Captain Wiseat ion Details LastModified Time Tobacco Smoking Status Never Smoker Agatha bo [place] - [facility] 02/07/2025 09:35:11 How Many Years Have You Consumed Alcohol? 40 Information not available 10/27/2024 What Type Of Guitar Player Do You Use? None Information not available [...] Emphysema N Migraines N Thyroid Problems N Glaucoma N Depression N COPD N Developmental Delay N Nasal or Sinus Problems Y Anemia N Immune System Disorder N Anesthesia Complications N Heart Attack (ND) N Other Skin Condition N Diabetes Y Rhinitis N Bleeding Disorder N Food Allergy N Arthritis N Hearing Loss N Hyperlipidemia N Cancer N Eczema N Stroke N Dementia N Nasal polyps Y Asthma N High Cholesterol N Sleep Disorder Y GERD/Reflux N Liver Disease N Headaches N Fibromyalgia N Hypertension Y Speech Delay N Kidney Disease N Past Encounters Encounter ID Performer Location Encounter Start Date Encounter Closed Date Diagnosis/Indication Diagnosis SNOMED-CT Code Diagnosis ICD10 Code Diagnosis IMO Codes Diagnosis Note [id number] LAYO RHODES MD [facility] [address] [address] 02/07/2025 09:12:54 02/07/2025 10:10:51 Chronic sinusitis 33064411 J32.8 72631 Polyp of nasal cavity 73 6599742 J33.0 Essential hypertension 76349518 I10 64683 Has f/u today with PCP. Previously noted to have different BP in both arms and white coat symptoms He was 196/93 in the left arm and 176/93 in the right arm. He does see cardiology given his history of atrial fibrillati on. He will discuss this afternoon with Dr. Heller whether additional workup needs to be done given the asymmetry and blood pressures. Health Concerns Section Related Observation LastModified by Organization Detai ls LastModified Time None Recorded Concern Status LastModified by Organization Details LastModified Time None Recorded Payers Encounter Date Sequence Insurance Name Policy Number Policy Marte Covered Member ID Marte Member ID Guarantor Name 02/07/2025 [facility] [id number] Philip Downs [id number] Philip Downs Notes Date Note Type Note Provider Name and Address Organization Details Recorded Time 02/07/2025 text/html Philip Downs is a 59-year-old male who presents for sinus-related symptoms. He reports experiencing recurrent symptoms for nearly a year, with temporary relief following antibiotic treatment. Symptoms typically return approximately two months after completing antibiotics. He has a history of asthma managed with [facility] and has been under the care of [...] with ablation in 2014 and sees a lumber yard worker every six months. He denies current use of blood thinners. LAYO GARCIA MD [address] [place] [address], [place], [address], [facility] - [facility] 02/07/2025 10:10:17
--- OUTSIDE RECORDS SUMMARY | 2025-04-12 17:20 | XMS_ITS | Continuity of Care Document ---
Author Organization [place] - [facility], [facility] Address [address] [place] [address] Care Team Providers Care Fuel Cell Engineer Name Role Phone FITO HELLER Primary Care Provider Assessment Encounter Date Assessment Date Assessment LastModified by Organization Details LastModified Time 03/23/2025 03/23/2025 Philip loera is a 59-year-old [...] Not available Not available Not available Lab None recorded . Referral None recorded . Procedures None recorded . Surgeries None recorded . Imaging None recorded . Medication Orders None recorded . Patient TargetsNo targets recorded. Patient Instructions Encounter Date Encounter Id Patient Instructions Last Modified By Organization Details Last Modified Time 03/23/2025 [id number] - Continue using nasal rinse twice daily. - Continue taking montelukast and other asthma medications. - Discuss with Dr. Heller the possibility of discontinuing metoprolol to allow for allergy injections. - Monitor symptoms through the winter and follow up if symptoms worsen. - Consider injectable medications like Nucala if allergy treatments are not feasible. scarlet Not available 03/23/2025 14:43:07 Please note: Parts of this encounter note have been generated by AI based on audio conversation. Patient consent was required prior to utilizing this technology. Content review was required prior to finalizing the note. scarlet Not available 03/23/2025 14:43:07 Reason for Referral None Reported. Results Created Date Observation Date Name Description Value Unit Range Abnormal Flag Note LastModifiedBy Organization Detail LastModifiedTime 02/29/2001/26/2024 vera metry testi ng* No observ ation record ed. [email or web address] [facility] [id number] 03/01/2025 11:49:16 Result Notes None recorded. Problems Name Problem SNOMED Code Status Onset Date Resolution Date Notes Provider Name and Address Organization Details Recorded Time Impacted cerumen in right ear 95654474222 82492 Active 2023 Impacted cerumen, right ear; Note: Date Diagnosed : 08/12/2023 12:22 PM (H61.21) Not Available [facility] 03:00:00 Sensorine ural hearing loss of bilateral ears 080281106 Active 2023 Sensorine ural hearing loss, bilateral ; Note: Date Diagnosed : 08/12/2023 1:09 PM (H90.3) Not Available [facility] 4 03:00:01 Chronic maxillary sinusitis 08954538 Active 2024 TEJAL LOVE PA-C [address], [place], [address] , [facility] [place] [facility] 5 12:09:34 Acute sinusitis 85367701 Active 2024 LAYO RHODES MD [address], [place], [address] , [place] - [facility] 5 12:25:03 Chronic sinusitis 28321430 Active 2024 LAYO RHODES MD [address], [place], [address] , [place] [facility] 5 09:57:37 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 910332758 Active 2024 LAYO RHODES MD [address], [place], [address] , [facility] [place] 5 09:57:46 Polyp of nasal cavity 422607753 Active 2024 LAYO RHODES MD [address], [place], [address] , [facility] [place] 5 10:02:00 Essential hypertens ion 54459125 Active 2024 LAYO RHODES MD [address], [place], [address] , [place] [facility] 5 10:06:42 Eosinophi l count above reference range 592586331 Active 2024 LAYO RHODES MD [address], [place], [address] , [place] [facility] 14:42:35 Deviated nasal septum 473201340 Active 2024 LAYO RHODES MD 100 [facility],[place] [address] [address], [place], [address] , [facility] 14:42:40 Problem Notes None recorded. Procedures Surgical History Date Name Laterality Status Provider Name and Address Organization Details Recorded Time JMSNasal/Sinus Endoscopy completed LAYO GARCIA MD 100 [facility],[address], [address], [facility] 03/23/2025 14:42:07 Allergy Testing-Full completed FIONA TANNER RN [address] [facility],[address], [address], [facility] 02/28/2025 10:31:13 JMSNasal/Sinus Endoscopy completed LAYO GARCIA MD [address] [facility],[address], [address], [facility] 02/07/2025 10:06:23 Imaging Results None recorded. Procedure [...] Updated DateTime 03/23/2025 170.18 cm 32.1 kg/m2 87869.44 g 184/98 mm[Hg] Agatha Pineda [place] - [facility] 03/23/2025 14:27:07 Social History Question Answer Notes LastModified by Organizat ion Details LastModified Time Tobacco Smoking Status Never Smoker Agatha bo [place] - [facility] 02/07/2025 09:35:11 How Many Years Have You Consumed Alcohol? 40 Information not available 10/27/2024 What Type Of Sand Conditioner Do You Use? None Information not available [...] Disorder N Anesthesia Complications N Heart Attack ([place]) N Other Skin Condition N Diabetes Y [...] ICD10 Code Diagnosis IMO Codes Diagnosis Note [id number] FIONA TANNER RN Allergy [address] [place] [address] [place] [address] 02/28/2025 08:37:15 02/28/2025 10:32:04 Chronic sinusitis 19776307 J32.8 81229 [id number] LAYO RHODES MD [facility] [place] [address] [place] [address] 03/23/2025 14:09:39 03/23/2025 14:46:27 Chronic sinusitis 74913798 J32.8 84097 Polyp of n genesis cavity and/or nasal sinus 983766360 J33.9 21808 Eosinophil count above reference range 394388452 R89.8 74958 Deviated nasal septum 12 8935996 J34.2 319459 Health Concerns Section Related Observation LastModified by Organization Detai ls LastModified Time None Recorded Concern Status LastModified by Organization Details LastModified Time None Recorded Payers Encounter Date Sequence Insurance Name Policy Number Policy Marte Covered Member ID Marte Member ID Guarantor Name 03/23/2025 1 [email or web address] [facility] (PPO) [id number] Philip Downs [id number] Philip Downs Notes Date Note Type Note Provider Name and Address Organization Details Recorded Time 03/23/2025 text/html Philip Downs is a 59-year-old [...] is retired and previously worked at the [employer] in [place]. LAYO GARCIA MD [address] [place] [address], [address], [facility] - [facility] 03/23/2025 14:44:25
--- OUTSIDE RECORDS SUMMARY | 2025-04-12 17:20 | XMS_ITS | Clinical Summary ---
Author Organization [facility] Address [address] [place] [address] Phone Care Team Providers Care Technology Coach Name Role Phone Michael Rhoades MD Primary Care Provider + [phone] Surgical History Surgery Date Site/Laterality Comments OTHER SURGICAL HISTORY PROCEDURE: DENIES PREVIOUS SURGERY Family History Medical History Relation Name Comments Heart attack Father Relation Name Status Comments Brother 1 Alive Brother 2 Alive Father Mother Alive Social History Tobacco Use Types Packs/Day Years Used Date Smoking Tobacco: Never Smokeless Tobacco: Never Alcohol Use Standard Drinks/Week Comments Yes 0 (1 standard drink = 0.6 oz pur e alcohol) Sex and Gender Information Value Date Recorded Sex Assigned at Male 08/07/2024 4:03 PM EST Legal Sex Male 9:13 PM EST Gender Identity Male 08/07/2024 4:03 PM EST Sexual Orientation Straight 08/07/2024 4: 03 PM EST Obstetrics History Last Filed Vital Signs Vital Sign Reading Time Taken Comments Blood Pressure 165/78 04/07/2023 11:25 AM EDT R Arm Pulse 73 02/09/2023 8:45 AM EDT Temperature - - Respiratory Rate - - Oxygen Saturation - - Inhaled Oxygen Concentration - - Weight 102 kg (224 lb) 04/07/2023 11:25 AM EDT Height 170.2 cm (5' 7 ) 04/07/2023 11:25 AM EDT Body Mass Index 35.08 04/07/2023 11:25 AM EDT Plan of Treatment Health Maintenance Due Date Last Done Comments Hepatitis B Vaccines (1 of 3 - 19+ 3-dose series) 1985 Pneumococcal Vaccine: 50+ Years (1 of 1 - PCV) 2016 DTaP,Tdap,and Td Vaccines (2 - Td or Tdap) 11/09/2019 11/08/2009 Cholesterol Screening (Lipid Panel) 05/09/2022 HIV Screening 05/09/2022 Hepatitis C Screening 05/09/2022 Social Influencers of Health Screening 05/09/2022 Hypertension/CHF/CAD Annual BMP Blood Test 05/22/2022 Depression Screening 06/07/2024 COVID-19 Vaccine ( season) 2025 04/07/2022, 10/07/2021, 04/10/2021, Additional history exists Influenza Vaccine (#1) 2025 , 05/18/2023, 05/09/2020 Colorectal Cancer Screening: Colonoscopy 07/07/2026 07/07/2016 RSV Immunization Adult Patients (1 - 1-dose 75+ series) 2041 Zoster Vaccines Completed 04/02/2024, 01/07/2024 HIB Vaccines Aged Out No longer eligi ble based on patient's age to complete this topic HPV Vaccines Aged Out No longer eligi ble based on patient's age to complete this topic Hepatitis A Vaccines Aged Out No long er eligible based on patient's age to complete this topic IPV Vaccines Aged Out No longer eligi ble based on patient's age to complete this topic MMR Vaccines Aged Out No longer eligi ble based on patient's age to complete this topic Meningococcal ACWY Vaccine Aged Out N o longer eligible based on patient's age to complete this topic Meningococcal B Vaccine Aged Out No l onger eligible based on patient's age to complete this topic RSV Immunization Patients Under 20 months Aged Out No longer eligible based on patient's age to complete this topic Varicella Vaccines Aged Out No longer eligible based on patient's age to complete this topic Procedures Procedure Name Priority Date/Time Associated Diagnosis Comments COLONOSCOPY Routine 07/07/2016 2:37 PM EST from Last 3 Months or Most Recently Relevant to Health Maintenance Results * COLONOSCOPY (07/07/2016 2:37 PM EST) Anatomical Region Laterality Modality Endoscopy us Historical Provider GI~PROCEDURE ORDERABLES F inal Result from Last 3 Months or Most Recently Relevant to Health Maintenance Insurance [employer] Advance Directives Documents on File Type Date Recorded Patient Credit Review Officer Expl anation Health Care Decision (hx) 04/24/2022 HE ALTH CARE PROXY Health Care Decision (hx) 04/24/2022 HE ALTH CARE PROXY Health Care Decision (hx) 04/24/2022 HE ALTH CARE PROXY Care Teams Technology Coach Relationship Specialty Start Date End Date Michael Rhoades MD [address] [place], [place] [address] PCP - General Internal Medicine 08/07/24
--- OUTSIDE RECORDS SUMMARY | 2025-04-12 17:20 | XMS_ITS | Continuity of Care Document ---
Author Organization [place] - [facility], Allergy Address [address] [address] Care Team Providers Care Synchro Assembler Name Role Phone FITO HELLER Primary Care Provider Assessment No assessment recorded. Plan of Treatment Reminders Order Date Submit [...] Modified By Organization Details Last Modified Time 02/28/2025 [id number] spirometry testing* [email or web address] Not available 02/28/2025 13:46:04 Reason for Referral None Reported. Results Created Date Observation Date Name Description Value Unit Range Abnormal Flag Note LastModifiedBy Organization Detail LastModifiedTime 02/08/2002/08/2025 CBC WITH DIFFE RENTI AL/PL ATELE T WBC 6.6 x10e3 /uL 3.4-10 .8 normal Not Available [facility] ([facility]) [address] [place], [address], 02/09/2025 19:16:55 02/08/2002/08/2025 CBC WITH DIFFE RENTI AL/PL ATELE T RBC 5.11 x10e6 /uL 4.14-5 .80 normal Not Available [facility] ([facility]) [address] [facility], [place], [address], 02/09/2025 19:16:55 02/08/20 25 02/08/2025 CBC WITH DIFFE RENTI AL/PL ATELE T hemoglobin 15.7 g/dL 13.0-1 7.7 normal Not Available [facility] ([facility]) [address] [place], [address], 02/09/2025 19:16:55 02/08/2002/08/2025 CBC WITH DIFFE RENTI AL/PL ATELE T hematocrit 46.1 % 37.5-5 1.0 normal Not Available [facility] ([facility]) [address] [place], [address], 02/09/2025 19:16:55 02/08/2002/08/2025 CBC WITH DIFFE RENTI AL/PL ATELE T MCV 90 fL 79-97 normal Not Available [facility] ([facility]) [address] [place], [address], 02/09/2025 19:16:55 02/08/2002/08/2025 CBC WITH DIFFE RENTI AL/PL ATELE T MCH 30.7 pg 26.6-3 3.0 normal Not Available [facility] ([facility]) [address] [place], [address], 02/09/2025 19:16:55 02/08/2002/08/2025 CBC WITH DIFFE RENTI AL/PL ATELE T MCHC 34.1 g/dL 31.5-3 5.7 normal Not Available [facility] ([facility]) [address] [place], [address], 02/09/2025 19:16:55 02/08/2002/08/2025 CBC WITH DIFFE RENTI AL/PL ATELE T RDW 12.9 % 11.6-1 5.4 Not Available [facility] ([facility]) [address] [place], [address], 02/09/2025 19:16:55 02/08/20 25 02/08/2025 CBC WITH DIFFE RENTI AL/PL ATELE T platelets 252 x10e3 /uL 150-45 0 normal Not Available [facility] ([facility]) [address] [facility], [place], [address], 02/09/2025 19:16:55 02/08/20 25 02/08/2025 CBC WITH DIFFE RENTI AL/PL ATELE T neutrophils 59 % not estab. normal Not Available [facility] ([facility]) [address] [facility], [place], [address], 02/09/2025 19:16:55 02/08/20 25 02/08/2025 CBC WITH DIFFE RENTI AL/PL ATELE T lymphs 21 % not estab. normal Not Available [facility] ([facility]) [address] [facility], [place], [address], 02/09/2025 19:16:55 02/08/20 25 02/08/2025 CBC WITH DIFFE RENTI AL/PL ATELE T monocytes 6 % not estab. normal Not Available [facility] ([facility]) [address] [facility], [place], [address], 02/09/2025 19:16:55 02/08/20 25 02/08/2025 CBC WITH DIFFE RENTI AL/PL ATELE T eos 12 % not estab. normal Not Available [facility] ([facility]) [address] [facility], [place], [address], 02/09/2025 19:16:55 02/08/20 25 02/08/2025 CBC WITH DIFFE RENTI AL/PL ATELE T basos 1 % not estab. normal Not Available [facility] ([facility]) [address] [facility], [place], [address], 02/09/2025 19:16:55 02/08/20 25 02/08/2025 CBC WITH DIFFE RENTI AL/PL ATELE T immature cells DIRECTOR OF TEENAGE ACTIVITIES Not Available [facility] ([facility]) [address] [place], [address], 02/09/2025 19:16:55 02/08/20 25 02/08/2025 CBC WITH DIFFE RENTI AL/PL ATELE T neutrophils (absolute) 3.9 x10e3 /uL 1.4-7. 0 normal Not Available [facility] ([facility]) [address] [place], [address], 02/09/2025 19:16:55 02/08/20 25 02/08/2025 CBC WITH DIFFE RENTI AL/PL ATELE T lymphs (absolute) 1.4 x10e3 /uL 0.7-3. 1 normal Not Available [facility] ([facility]) [address] [place], [address], 02/09/2025 19:16:55 02/08/20 25 02/08/2025 CBC WITH DIFFE RENTI AL/PL ATELE T monocytes(ab solute) 0.4 x10e3 /uL 0.1-0. 9 normal Not Available [facility] ([facility]) [address] [place], [address], 02/09/2025 19:16:55 02/08/20 25 02/08/2025 CBC WITH DIFFE RENTI AL/PL ATELE T eos (absolute) 0.8 x10e3 /uL 0.0-0. 4 above high normal Not Available [facility] ([facility]) [address] [place], [address], 02/09/2025 19:16:55 02/08/20 25 02/08/2025 CBC WITH DIFFE RENTI AL/PL ATELE T baso (absolute) 0.1 x10e3 /uL 0.0-0. 2 normal Not Available [facility] ([facility]) [address] [place], [address], 02/09/2025 19:16:55 02/08/20 25 02/08/2025 CBC WITH DIFFE RENTI AL/PL ATELE T immature granulocytes 1 % not estab. Not Available [facility] ([facility]) [address] [facility], [place], [address], 02/09/2025 19:16:55 02/08/20 25 02/08/2025 CBC WITH DIFFE RENTI AL/PL ATELE T immature grans (abs) 0.1 x10e3 /uL 0.0-0. 1 Not Available [facility] ([facility]) [address] [facility], [place], [address], 02/09/2025 19:16:55 02/08/20 25 02/08/2025 CBC WITH DIFFE RENTI AL/PL ATELE T NRBC DIRECTOR OF TEENAGE ACTIVITIES Not Available [facility] ([facility]) [address] [facility], [place], [address], 02/09/2025 19:16:55 02/08/20 25 02/08/2025 CBC WITH DIFFE RENTI AL/PL ATELE T hematology comments: DIRECTOR OF TEENAGE ACTIVITIES Not Available [facility] ([facility]) [address] [facility], [place], [address], 02/09/2025 19:16:55 02/08/20 25 02/09/2025 IMMUN OGLOB ULIN E, TOTAL immunoglobul in E, total 518 IU/mL 6-495 above high normal Not Available [facility] ([facility]) [address] [facility], [place], [address], 02/09/2025 19:16:56 02/08/[address], sinus es, w/o contr ast No observ ation record ed. [email or web address] [facility] [address], [place], [address], 02/07/2025 09:57:41 02/08/[address], sinus es, w/o contr ast No observ ation record ed. [facility] [address] [place], [address], 02/07/2025 10:02:46 02/12/2002/07/2025 CT, sinus es, w/o contr ast No observ ation record ed. [facility] [address], [place], [address], 02/11/2025 15:11:29 02/29/20 25 01/26/2024 vera metry testi ng* No observ ation record ed. [email or web address] [facility] [id number] 03/01/2025 11:49:16 Result Notes None recorded. Problems Name Problem SNOMED Code Status Onset Date Resolution Date Notes Provider Name and Address Organization Details Recorded Time Impacted cerumen in right ear 04863962726 23794 Active 2023 Impacted cerumen, right ear; Note: Date Diagnosed : 08/12/2023 12:22 PM (H61.21) Not Available [facility] 4 03:00:00 Sensorine ural hearing loss of bilateral ears 153348519 Active 2023 Sensorine ural hearing loss, bilateral ; Note: Date Diagnosed : 08/12/2023 1:09 PM (H90.3) Not Available [facility] 4 03:00:01 Chronic maxillary sinusitis 90927210 Active 2024 TEJAL LOVE PA-C [address] [address], [place], [address] , [facility] [place] 5 12:09:34 Acute sinusitis 41873346 Active 2024 LAYO RHODES MD [address] [place] [address],[place] [address], [place], [address] , [facility] 5 12:25:03 Chronic sinusitis 57713543 Active 2024 LAYO RHODES MD [address] [place] [address], [place], [address] , 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 - [facility] [place] 5 10:02:00 Essential hypertens ion 29066074 Active 2024 LAYO RHODES MD [address] [facility],[place] [address], [place], [address] , [facility] - [facility] 10:06:42 Eosinophi l count above reference range 660532737 Active 2024 LAYO RHODES MD [address] [facility],[place] [address], [place], [address] , [facility] - [facility] 14:42:35 Deviated nasal septum 690479147 Active 2024 LAYO RHODES MD 100 [facility],[place] [address], [place], [address] , [facility] - [facility] 14:42:40 Problem Notes None recorded. Procedures Surgical History Date Name Laterality Status Provider Name and Address Organization Details Recorded Time JMSNasal/Sinus Endoscopy completed LAYO GARCIA MD 100 [facility],[place] [address], [place], [address], [facility] 03/23/2025 14:42:07 Allergy Testing-Full completed FIONA TANNER RN 100 [facility],[place] [address], [place], [address], [facility] - [facility] 02/28/2025 10:31:13 JMSNasal/Sinus Endoscopy completed LAYO GARCIA MD [address] [place] [address],[place] [address], [place], [address], [facility] - [facility] 02/07/2025 10:06:23 Imaging Results None recorded. [...] Updated DateTime 02/28/2025 170.18 cm 32.1 kg/m2 26085.44 g 95 /min 177/85 mm[Hg] FIONA TANNER, RACHELLE 100 [facility] [address], [facility] [place], [address] , [facility] 02/28/2025 08:53:33 Social History Question Answer Notes LastModified by Zerplyizat ion Details LastModified Time Tobacco Smoking Status Never Smoker Agatha bo [place] - [facility] 02/07/2025 09:35:11 How Many Years Have You Consumed Alcohol? 40 Information not available 10/27/2024 What Type Of Broadcaster Do You Use? None Information not available [...] Disorder N Anesthesia Complications N Heart Attack ([place]) N Other Skin Condition N Diabetes Y Rhinitis N Bleeding Disorder N Food Allergy N Arthritis N Hearing Loss N Hyperlipidemia N Cancer N Eczema N Stroke N Dementia N Nasal polyps Y Asthma N Sleep Disorder Y GERD/Reflux N High Cholesterol N Liver Disease N Headaches N Fibromyalgia N Hypertension Y Speech Delay N Kidney Disease N Past Encounters Encounter ID Performer Location Encounter Start Date Encounter Closed Date Diagnosis/Indication Diagnosis SNOMED-CT Code Diagnosis ICD10 Code Diagnosis IMO Codes Diagnosis Note [id number] LAYO RHODES MD [facility] [address] [address] 02/07/2025 09:12:54 02/07/2025 10:10:51 Chronic sinusitis 27281621 J32.8 80228 Polyp of nasal cavity 73 4667344 J33.0 Essential hypertension 95833260 I10 29383 Has f/u today with PCP. Previously noted to have different BP in both arms and white coat symptoms He was 196/93 in the left arm and 176/93 in the right arm. He does see cardiology given his history of atrial fibrillati on. He will discuss this afternoon with Dr. Heller whether additional workup needs to be done given the asymmetry and blood pressures. [id number] FIONA TANNER RN Allergy [address] [place] [address] 02/28/2025 08:37:15 02/28/2025 10:32:04 Chronic sinusitis 11749488 J32.8 17635 Health Concerns Section Related Observation LastModified by Organization Detai ls LastModified Time None Recorded Concern Status LastModified by Organization Details LastModified Time None Recorded Payers Encounter Date Sequence Insurance Name Policy Number Policy Marte Covered Member ID Marte Member ID Guarantor Name 02/28/2025 1 [facility] (O) [id number] Philip Downs [id number] Philip Downs
--- OUTSIDE RECORDS SUMMARY | 2025-04-12 17:21 | XMS_ITS | Patient Health Record ---
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 Mayela Pickard , [place] [facility], [address] [place] [address]. [phone], (P) [phone] (F) , Date of Service: Referral required first, Diagnosis: Abnormal EKG, w/4 visits, Patient needs as soon as possible as he is on a time constraint with his employer. Patient needs an appointment before 08/04/24., Patient will call back with fax number.ROBERTO [facility] 06/19/2024 02:58:24 PM > the patient called back w the fax number [phone] for the above referral request. ROBERTO [facility] 07/06/2024 10:20:30 AM > the patient called in and said that he would need this referral processed LAURE. ROBERTO Lori P Admin 07/06/2024 11:19:00 AM > faxed medical referral, notes and labs to [phone]>dx faxed to same fax number but sent separately, Nikki MEJIA P Admin 07/12/2024 12:59:43 PM > resent referral as it is URGENT now>also faxed ekg from 2022, Nikki MEJIA P Admin 07/13/2024 01:18:14 PM > Refaxed referral to [phone]>diagnostics faxed to same number separately>NO REFERRAL REQUIRED with pt's insurance Referral Priority Urgent MEDICATIONS Medication SIG (Take, Route, Frequency, Duration) Notes Start Date End Date Status amLODIPine Besylate 5 MG TAKE 1 AND 1/2 TAB BY MOUTH DAILY for 90 Active Aspirin 81 81 MG 1 tablet Orally Once a day for 30 day(s) Active Losartan Potassium-HCTZ 50-12.5 MG TAKE 1 TABLET BY MOUTH TWICE A DAY for 90 Active Breo Ellipta 200-25 MCG/ACT 1 puff Inhal ation Once a day for 90 Active Pravastatin Sodium 10 MG TAKE 1 TABLET B Y MOUTH EVERY DAY for 90 Active Montelukast Sodium 10 MG 1 tablet Orally Once a day for 30 day(s) Active metFORMIN HCl 500 MG TAKE 1 TO 2 TABLETS BY MOUTH EVERY DAY 90 for 90 Active Metoprolol Succinate ER 100 MG TAKE 1 TABLET BY MOUTH EVERY DAY FOR 90 DAYS for 90 Active IMMUNIZATIONS Vaccine Route Administration Date Status Comme nts Influenza, Flublok IM Intramuscular 02/07/2025 Administere d Afluria IM Intramuscular 05/18/2023 Administered SOCIAL HISTORY Tobacco Use: Social History Observation Description Date Details (start date - stop date) Never Smoker NA - NA Sex Assigned At : Social History Observation Description Sex Assigned At Unknown Smoking Question Answer Notes Are you a: never smoker Section Notes: pt never smoke pt never smoke pt never smoke pt never smoke pt never smoke PROBLEMS Problem Type ICD Code Onset Dates Problem Status W/U Status Risk SNOMED Code Notes Problem Essential (primary) hypertension (I10) Active confirmed Essential hypertension (85587405) Problem Type 2 diabetes mellitus without complications (E11.9) Active confirmed Type II diabetes mellitus without complication (411299368) Problem Disorder of lipoprotein metabolism, unspecified (E78.9) Active confirmed Disorder of lipoprotein storage and metabolism (disorder) (009521366) Problem Obstructive sleep apnea (adult) (pediatric) (G47.33) Active confirmed Obstructive sleep apnea syndrome (disorder) (21913812) Problem Nonrheumatic mitral valve disorder, unspecified (I34.9) Active confirmed Mitral valve disorder (16708866) Problem Unspecified atrial fibrillation (I48.91) Active confirmed Atrial fibrillation (31523320) Problem Irregular heart rate (I49.9) Active confirmed 018476220 Problem Recurrent sinusitis (J32.9) Active confirmed 593529606 Problem Leukocytosis, unspecified (D72.829) Active confirmed 898621273 VITAL SIGNS Blood pressure diastolic 94 mm Hg 02/07/2025 Height 66 in 02/07/2025 Blood pressure systolic 186 mm Hg 02/07/2025 Weight 213 lbs 02/07/2025 BMI 34.38 kg/m2 02/07/2025 Encounters Encounter Location Date Provider Diagnosis [place] [id number] 05/16/2024 FITO HELLER Essential (primary) hypertension I10 ; Disorder of lipoprotein metabolism, unspecified E78.9 ; Unspecified atrial fibrillation I48.91 ; Type 2 diabetes mellitus without complications E11.9 ; Obstructive sleep apnea (adult) (pediatric) G47.33 ; Nonrheumatic mitral valve disorder, unspecified I34.9 and History of nocturia Z87.[address] [place] [address] 07/06/2024 [place] [address] 08/07/2024 FITO HELLER History of nocturia Z87.898 ; Deficiency of other specified B group vitamins E53.8 ; Essential (primary) hypertension I10 ; Disorder of lipoprotein metabolism, unspecified E78.9 ; Unspecified atrial fibrillation I48.91 ; Obstructive sleep apnea (adult) (pediatric) G47.33 ; Type 2 diabetes mellitus without complications E11.9 and Recurrent sinusitis J32.9 [place] [id number] 08/07/2024 [place] [address] 08/08/2024 FITO HELLER Leukocytosis, unspecified D72.829 [place] [address] 08/09/2024 FITO HELLER [address] [address] 08/14/[address] [address] 09/18/[address] [address] 09/18/[address] [address] 09/21/[address] [address] 09/22/[address] [address] 02/07/2025 FITO HELLER Essential (primary) hypertension I10 ; Disorder of lipoprotein metabolism, unspecified E78.9 ; Unspecified atrial fibrillation I48.91 ; Type 2 diabetes mellitus without complications E11.9 ; Obstructive sleep apnea (adult) (pediatric) G47.33 ; Nocturia R35.1 ; Nonrheumatic mitral valve disorder, unspecified I34.9 ; Lung nodules R91.8 and Irregular heart rate I49.[address] [address] 02/07/2025 [facility] Encounter for immunization Z23 [address] [address] 02/12/[address] [address] 02/16/[address] [address] 02/23/[address] [address] 04/03/[address] [address] 04/06/2025 [facility] ASSESSMENTS Encounter Date Diagnosis Assessment Notes Treatment Notes Treatment Clinical Notes Section Notes 02/07/2025 Encounter for immunization (ICD-10 - Z23) Influenza vaccine administered. Patient counseled and VIS sheet given. 08/08/2024 Leukocytosis, unspecified (ICD-10 - D72.829) 02/07/2025 Disorder of lipoprotein metabolism, unspecified (ICD-10 - E78.9) To be statin therapy check LFTs check lipid profile LDL goal optimally less than 70 02/07/2025 Essential (primary) hypertension (ICD-10 - I10) Blood pressure suboptimal control. Will set up a 24-hour blood pressure monitor. Exercise diet weight loss no added salt diet walk 30 minutes a day. 08/07/2024 History of nocturia (ICD-10 - Z87.898) Stable. Check PSA declines physical exam 08/07/2024 Deficiency of other specified B group vitamins (ICD-10 - E53.8) B12 folic acid yearly well patient on PPI. 05/16/2024 Disorder of lipoprotein metabolism, unspecified (ICD-10 - E78.9) 05/16/2024 Essential (primary) hypertension (ICD-10 - I10) 02/07/2025 Unspecified atrial fibrillation (ICD-10 - I48.91) Stable check EKG no CHF no chest pain set up 24-hour Holter monitor 08/07/2024 Essential (primary) hypertension (ICD-10 - I10) Blood pressure suboptimal control came down to 140 but still too high. Therefore we will set up 24-hour amatory blood pressure monitor 05/16/2024 Unspecified atrial fibrillation (ICD-10 - I48.91) 05/16/2024 Type 2 diabetes mellitus without complications (ICD-10 - E11.9) 08/07/2024 Disorder of lipoprotein metabolism, unspecified (ICD-10 - E78.9) Continue statin therapy check lipid profile LDL goal (less than 70 02/07/2025 Type 2 diabetes mellitus without complications (ICD-10 - E11.9) Of medication. Check A1c goal less than 7.0 diet exercise weight loss ophthalmology q. year 05/16/2024 Obstructive sleep apnea (adult) (pediatric) (ICD-10 - G47.33) 08/07/2024 Unspecified atrial fibrillation (ICD-10 - I48.91) By physical exam exam seems to be in sinus rhythm at the present time. Awaiting 48-hour Holter monitor awaiting cardiac echo check EKG 02/07/2025 Obstructive sleep apnea (adult) (pediatric) (ICD-10 - G47.33) Continue CPAP therapy 05/16/2024 Nonrheumatic mitral valve disorder, unspecified (ICD-10 - I34.9) 08/07/2024 Obstructive sleep apnea (adult) (pediatric) (ICD-10 - G47.33) Continue CPAP therapy 02/07/2025 Nocturia (ICD-10 - R35.1) 05/16/2024 History of nocturia (ICD-10 - Z87.898) 08/07/2024 Type 2 diabetes mellitus without complications (ICD-10 - E11.9) Recommend 20+ pound weight loss intentional. Continue walking 30 minutes every day recommended. Check A1c goal less than 7.0. 02/07/2025 Nonrheumatic mitral valve disorder, unspecified (ICD-10 - I34.9) Set up follow-up cardiac echo history of 08/07/2024 Recurrent sinusitis (ICD-10 - J32.9) Check sinus x-ray. Check CBC. Augmentin 875 twice daily for 10 days. Add prednisone for 5 days 40 mg 02/07/2025 Lung nodules (ICD-10 - R91.8) Stable. No symptoms set up follow-up lung CT 02/07/2025 Irregular heart rate (ICD-10 - I49.9) PLAN OF TREATMENT Pending Test Test Name Order Date Holter Monitor 24 hour 02/07/2025 EKG 05/16/2024 24 hour ambulatory blood pressure monito r 08/07/2024 Future Test Test Name Order Date GGTP 08/10/2023 HEPATITIS B SURFACE ANTIGEN 08/10/2023 HEPATITIS C ANTIBODY 08/10/2023 IRON AND TIBC 08/10/2023 Hemoglobin [id number] 05/12/2024 Prostate-Specific Ag (PSA)-[id number] 2023 CBC, Platelet, w/o Differential-[id number] 1 07/13/2023 Lipid Panel-[id number] 05/12/2024 Hepatic Function Panel ([id number] 2023 BMP8+[id number] 05/12/2024 Immunoglobulin E, Total-[id number] Next Appt Details Provider Name:FITO ALFRED, 09/05/2025 01:45:00 PM, [address] [place], [address], Insurance Providers Payer Name Payer Address Payer Phone Subscriber Number Group Number Insured Name Patient Relationship to Insured Coverage Start Date Coverage End Date [facility] [address] [place] [id number] REJI MITCHELL Self - patient is the insured MEDICAL (GENERAL) HISTORY Medical History History ICD Code Moderate aortic regurgitation by echo Mild mitral regurgitiation by echo 09/10 Hypercholesterolemia-Zocor started Pneumonitis per Family [facility] medical ce nter 09/10 Hypertension Type 2 diabetes For lipidemia Obstructive sleep apnea on CPAP A-fib Vaccination status COVID 5 s hots. Flu shot q. year. Tdap 2016. Shingrix negative. Tdap 2022 Pertinent lab data hep A BC negative antinuclear antibody negative anti-smooth muscle antibody negative hemochromatosis gene mutation test negative CT of the abdomen April 2022 simple l eft renal cyst Ophthalmology [facility] June [address] Jose loera in 10 years 2026 Cardiac echo June 1999 le ft-ventricular hypertrophy mild AI trace MR EF 55 to 60% Pertinent lab data October 2022 creatinine 1.2. LFTs normal. ALT slightly elevated 47. Cholesterol 151 triglyceride 124 HDL 42 LDL 84 UA negative. A1c 6.4 PSA April [address] Queen 2023 OV Cardiac echo April 2023 E F 55% AI. Mild to moderate MR severely dilated left atrium Dr. Mims Chest x-ray July 2023 no active dise ase 24-hour ambulatory blood pressure [facility] er 2022 average 130/[address] January 2024 Dr. Alexei glover pulmonary. Multiple benign lateral pulmonary nodules 1 year sinus issues Surgical History Surgery Date(Month/Year) wisdom teeth extraction( all 4)
--- OUTSIDE RECORDS SUMMARY | 2025-04-12 17:21 | XMS_ITS | Clinical Summary ---
Author Organization [facility] Address [address] [facility] [address] [place] [address] Phone Care Team Providers Care Returned Item Clerk Name Role Phone Michael Rhoades MD Primary Care Provider [phone] Allergies No known active allergies Medications aspirin (ST PEDRO) 81 MG EC tablet Take 1 tablet by mouth 1 (one) time each day Active lisinopril-hydr oCHLOROthiazide (PRINZIDE,ZESTO RETIC) 20-25 MG per tablet Take 2 tablets by mouth 1 (one) time each day 02/21/2019 Active pravastatin (PRAVACHOL) 10 MG tablet Take 1 tablet by mouth 1 (one) time each day Active metFORMIN (GLUCOPHAGE) 500 MG tablet Take 1 tablet by mouth 1 (one) time each day 04/20/2021 Active metoprolol succinate XL (TOPROL-XL) 100 MG 24 hr tablet TAKE 1 TABLET (100 MG TOTAL) BY MOUTH 1 (ONE) TIME EACH DAY DO NOT CRUSH OR CHEW. 90 tablet 3 03/09/2023 Active Active Problems Problem Noted Date Diagnosed Date Atrial fibrillation 06/30/2022 Hyperlipidemia 06/30/2022 Hypertension 05/15/2021 Hypertensive disorder 11/12/2020 Sleep apnea 11/12/2020 Family History Medical History Relation Comments Hypertension Mother Diabetes Sibling type 2 Relation Status Comments Father Mother Alive Sibling Social History Tobacco Use Types Packs/Day Years Used Date Smoking Tobacco: Never Smokeless Tobacco: Never Tobacco Cessation:Counseling Given: Not Answered Alcohol Use Standard Drinks/Week Comments Yes 0 (1 standard drink = 0.6 oz pure alcohol) Alcoholic Drinks/day: 1-2 drinks per day Sex and Gender Information Value Date Recorded Sex Assigned at Not on file Legal Sex Male 4:55 PM EST Gender Identity Not on file Sexual Orientation Not on file Last Filed Vital Signs Vital Sign Reading Time Taken Comments Blood Pressure 130/74 06/30/2022 1:07 PM EST Pulse 70 06/30/2022 1:07 PM EST Temperature - - Respiratory Rate - - Oxygen Saturation 98% 05/15/2021 2:01 PM EST Inhaled Oxygen Concentration - - Weight 101 kg (222 lb 6.4 oz) 06/30/2022 1:07 PM EST Height 170.2 cm (5' 7 ) 02/13/2020 12:00 PM EDT Body Mass Index 34.83 02/13/2020 12:00 PM EDT Plan of Treatment Health Maintenance Due Date Last Done Comments Hepatitis B Vaccine (1 of 3 - 19+ 3-dose series) 06/02 Pneumococcal Vaccine: 50+ Years (1 of 2 - PCV) 985 Colorectal Cancer Screening: Annual FOBT 2015 Colorectal Cancer Screening: Colonoscopy 2015 Colorectal Cancer Screening: Sigmoidoscopy 2015 Influenza Vaccine (#1) 2025 Insurance Unicare Unicare Care Teams Returned Item Clerk Relationship Specialty Start Date End Date Michael Rhoades MD [address] [place] [address] PCP - General 06/17/20
--- OUTSIDE RECORDS SUMMARY | 2025-04-12 17:21 | XMS_ITS | Encounter Summary ---
Author Organization [facility] Address [address] [facility] [address] [place] [address] Phone Care Team Providers Care Sifting Operator Name Role Phone Michael Rhoades MD Primary Care Provider [phone] Reason for Visit * Reason Comments Med Refill Encounter Details Date Type Department Care Team (Late st Contact Info) Description 02/20/2024 Refill [facility] [address] [facility] [address] [place] [address] Abdiel Reaves MD [address] [facility] [address] [place] [id number] Social History Tobacco Use Types Packs/Day Years [...] on file Sexual Orientation Not on file documented as of this encounter Plan of Treatment Not on file documented as of this encounter Visit Diagnoses Not on filedocumented in this encounter Care Teams Sifting Operator Relationship Specialty Start Date End Date Michael Rhoades MD [address] [place] [address] PCP - General 06/17/20 documented as of this encounter
== END 2025-04-12 14:46 | disposition home or self-care (01) ==
LOC: HO.HPS 14:08
PROVIDERS: PCP Internal Medicine; Visit Provider Hospitalist
DX: D72.19 Other eosinophilia (principal); J45.40 Moderate persistent asthma, uncomplicated; T78.40XA Allergy, unspecified, initial encounter; R91.8 Other nonspecific abnormal finding of lung field; G47.33 Obstructive sleep apnea (adult) (pediatric)
CPT/HCPCS: 99214

== ENCOUNTER 2025-04-17 10:25 | Outpatient (AMB) | payer OTHER, SELFPAY ==
--- OUTSIDE RECORDS SUMMARY | 2024-09-18 05:55 | XMS_ITS ---
Author Organization [facility] Address [address] [place], [place] [id number] Care Team Providers Care Truck Chauffeur Name Role Phone FITO HELLER Primary Care Provider [phone] REASON FOR VISIT Cancel Appointment Request Encounters Encounter Location Date Provider Diagnosis [address] [address] 09/18/2024 FITO HELLER PLAN OF TREATMENT Next Appt Details Provider Name:FITO ALFRED, 09/05/2025 01:45:00 PM, [address] [place], [phone],
--- OUTSIDE RECORDS SUMMARY | 2024-09-21 03:30 | XMS_ITS ---
Author Organization [facility] Address [address] [place], [place] [phone] Care Team Providers Care Nitroglycerin Neutralizer Name Role Phone FITO HELLER Primary Care Provider [place], NURSING [facility] [phone] REASON FOR VISIT ABPM Applied Encounters Encounter Location Date Provider Diagnosis [address] [address] 09/21/2024 NURSING [place] PLAN OF TREATMENT Next Appt Details Provider Name:FITO ALFRED, 09/05/2025 01:45:00 PM, [address] [place] [address], [phone],
--- OUTSIDE RECORDS SUMMARY | 2024-09-22 03:30 | XMS_ITS ---
Author Organization [facility] Address [address] [place], [place] [id number] Care Team Providers Care Ecological Technical Officer Name Role Phone FITO HELLER Primary Care Provider [phone] [place], NURSING [facility] [phone] REASON FOR VISIT ABPM Removed Encounters Encounter Location Date Provider Diagnosis [address] [address] 09/22/2024 NURSING [place] PLAN OF TREATMENT Next Appt Details Provider Name:FITO ALFRED, 09/05/2025 01:45:00 PM, [address] [place] [address], [phone],
--- OUTSIDE RECORDS SUMMARY | 2025-02-07 09:15 | XMS_ITS ---
Author Organization [facility] Address [address] [place], [place] [phone] Care Team Providers Care Bottom Stainer Name Role Phone PINA FITO Primary Care Provider ALLERGIES No Known Allergies RESULTS Component Value [...] Problem Irregular heart rate (I49.9) Active confirmed [id number] VITAL SIGNS Height 66 in 02/07/2025 Weight 213 lbs 02/07/2025 Blood pressure systolic 186 mm Hg 02/08/20 25 Blood pressure diastolic 94 mm Hg 025 BMI 34.38 kg/m2 02/07/2025 Encounters Encounter Location Date Provider Diagnosis [facility] [address] [place] [address] 02/07/2025 FITO HELLER Essential (primary) hypertension I10 [...] Test Test Name Order Date Immunoglobulin E, [id number] Next Appt Details Follow Up: Follow-up 6 month s labs pending 24-hour blood pressure monitor 24- hour Holter monitor. Flu shot with nursing, Reason: Provider Name:FITO ALFRED, 09/05/2025 01:45:00 PM, [address] [place], [address], Progress Notes * Examination Category Sub-Category Detail [...]
--- OUTSIDE RECORDS SUMMARY | 2025-02-07 10:15 | XMS_ITS ---
Author Organization [facility] Address [address] [place], [place] [phone] Care Team Providers Care Clay Dry Press Mixer Operator Name Role Phone FITO HELLER Primary Care Provider [place], NURSING [facility] [phone] REASON FOR VISIT flu shot IMMUNIZATIONS Vaccine Route Administration Date Status Comme nts Influenza, Flublok IM Intramuscular 02/07/2025 Administere d Encounters Encounter Location Date Provider Diagnosis [address] [address] 02/07/2025 NURSING [place] Encounter for immunization Z23 ASSESSMENTS Encounter Date Diagnosis Assessment Notes Treatment Notes Treatment Clinical Notes Section Notes 02/07/2025 Encounter for immunization (ICD-10 - Z23) Influenza vaccine administered. Patient counseled and VIS sheet given. PLAN OF TREATMENT Treatment Notes Assessment Notes Encounter for immunization Influenza vac cine administered. Patient counseled and VIS sheet given. Next Appt Details Provider Name:FITO ALFRED, 09/05/2025 01:45:00 PM, [address] [place] [address], [phone],
--- OUTSIDE RECORDS SUMMARY | 2025-02-12 03:08 | XMS_ITS ---
Author Organization [facility] Address [address] [place], [place] [phone] Care Team Providers Care Glass Belt Sander Name Role Phone FITO HELLER Primary Care Provider REASON FOR VISIT Requesting CT order Encounters Encounter Location Date Provider Diagnosis [facility] [address] [place] [phone] 02/12/2025 FITO HELLER PLAN OF TREATMENT Next Appt Details Provider Name:FITO ALFRED, 09/05/2025 01:45:00 PM, [address] [place], [address],
--- OUTSIDE RECORDS SUMMARY | 2025-02-16 09:53 | XMS_ITS ---
Author Organization [facility] Address [address] [place], [place] [phone] Care Team Providers Care Airline Hostess Name Role Phone FITO HELLER Primary Care Provider [phone] REASON FOR VISIT Echo Encounters Encounter Location Date Provider Diagnosis [address] [address] 02/16/2025 FITO HELLER PLAN OF TREATMENT Next Appt Details Provider Name:FITO ALFRED, 09/05/2025 01:45:00 PM, [address] [place], [address],
--- OUTSIDE RECORDS SUMMARY | 2025-02-23 08:12 | XMS_ITS ---
Author Organization [facility] Address [address] [place], [place] [phone] Care Team Providers Care Lockstitch Topstitcher Name Role Phone FITO HELLER Primary Care Provider REASON FOR VISIT CT Results Encounters Encounter Location Date Provider Diagnosis [facility] [address] [place] [phone] 02/23/2025 FITO HELLER PLAN OF TREATMENT Next Appt Details Provider Name:FITO ALFRED, 09/05/2025 01:45:00 PM, [address] [place], [address],
--- OUTSIDE RECORDS SUMMARY | 2025-04-03 05:43 | XMS_ITS ---
Author Organization [facility] Address [address] [place], [place] [id number] Care Team Providers Care Director Market Intelligence Name Role Phone FITO HELLER Primary Care Provider [place], [facility] [phone] REASON FOR VISIT Cancel Appointment Request Encounters Encounter Location Date Provider Diagnosis [address] [address] 04/03/2025 NURSING [place] PLAN OF TREATMENT Next Appt Details Provider Name:FITO ALFRED, 09/05/2025 01:45:00 PM, [address] [place] [address], [phone],
--- OUTSIDE RECORDS SUMMARY | 2025-04-06 03:45 | XMS_ITS ---
Author Organization [facility] Address [address] [place], [place] [id number] Care Team Providers Care Design Tech Name Role Phone FITO HELLER Primary Care Provider [phone] [place], NURSING [facility] [phone] REASON FOR VISIT Holter placement 24 hr Encounters Encounter Location Date Provider Diagnosis [address] [address] 04/06/2025 NURSING [place] PLAN OF TREATMENT Next Appt Details Provider Name:FITO ALFRED, 09/05/2025 01:45:00 PM, [address] [place] [address], [phone],
--- NOTE | 2025-04-17 10:29 | HO.NEPHOV_ITS ---
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 He is continuing to be active. His blood pressure has not been at goal. He has lost some weight. He does not have any chest pain, shortness of breath, paroxysmal nocturnal dyspnea, orthopnea, pedal edema or urinary symptoms. He did not complain of any orthostatic symptoms. He has not very strict about low-sodium diet. He avoids nonsteroidal anti-inflammatory medications and maintain good hydration. [facility] Medical History (Updated 04/17/25 @ 10:45 by Ivan Queen MD) IRINA on CPAP Pulmonary nodules Allergies Asthma Eosinophilia Hypertension Surgical History H/O prior ablation treatment Family History Mother Hypertension Social History Alcohol intake: current Comment: Socially Patient Tobacco Use Status: Never used Tobacco Review of Systems Const All systems reviewed & are unremarkable except as noted in HPI and below Physical Exam Vital Signs: Last Vital Signs Pulse 66 04/17/25 10:31 BP 160/80 H 04/17/25 10:31 Pulse Ox 96 04/17/25 10:31 Oxygen Delivery Method Room Air 04/17/25 10:31 BMI result Body Mass Index 33.9 Const General: comfortable and no acute distress Orientation/consciousness: patient oriented x3 HEENT Head: Yes normocephalic Mouth: Normal oral and palatal mucosa present Eyes EOM: EOMs intact bilaterally Neck Neck: Yes supple Resp Auscultation: clear to auscultation bilaterally Cardio Jugular venous distension: no JVD Rate: regular rate GI Palpation (GI): Soft to palpation Auscultation: normal bowel sounds General: Yes no CVA tenderness Back/Spine/Pelvis Back: no CVA tenderness Skin General skin exam: no rashes or lesions noted Neuro General: patient oriented x3 and moves all extremities Extrem General: Yes no pedal edema Assessment & Plan Assessment & Plan (1) Hypertension: Code(s): I10 - Essential (primary) hypertension Category: Medical Qualifiers: Hypertension type: primary hypertension Qualified Code(s): I10 - Essential (primary) hypertension (2) White coat syndrome with diagnosis of hypertension: Code(s): I10 - Essential (primary) hypertension Category: Medical Plan Philip has hypertension for long time and is on antihypertensives. He has not had any irregular heart rhythm or palpitations. He does not have any retinopathy, left ventricular hypertrophy, proteinuria or abnormal renal functions. He should cut back sodium in the diet. He should maintain good hyd ration and stay away from nonsteroidal anti-inflammatories as much as he can. His blood pressure is not currently well controlled on the current medication regimen. I started him on Nifedipine 60 mg daily after D/Cing Amlodipine. I arranges a 24 hour BPM. Follow-up given Orders: Orders AMB 24 HR B/P Monitor PLACEMENT Today I10 - Essential (primary) hypertension Medications: New nifedipine ER 60 mg PO DAILY 90 tabs 4RF Coding Level of Care Code Est Pt Level 4 (32288) Diagnoses Primary hypertension I10 Hypertension type: primary hypertension White coat syndrome with diagnosis of hypertension I10
[2025-04-17 10:31] VITALS: BP 160/80; PULSE 66; O2SAT 96; BMI 33.9
--- OUTSIDE RECORDS SUMMARY | 2025-04-17 11:59 | XMS_ITS | Continuity of Care Document ---
Author Organization [place] - [facility], Allergy Address [address] [address] Care Team Providers Care Internet Consultant Name Role Phone FITO HELLER Primary Care Provider [phone] Assessment No assessment recorded. Plan of Treatment [...] By Organization Details Last Modified Time 02/28/2025 [id number] spirometry testing* [email or web address] Not available 02/28/2025 13:46:04 Reason for Referral None Reported. Results Created Date Observation Date Name Description Value Unit Range Abnormal Flag Note LastModifiedBy Organization Detail LastModifiedTime 02/08/2002/08/2025 CBC WITH DIFFE RENTI AL/PL ATELE T WBC 6.6 x10e3 /uL 3.4-10 .8 normal Not Available [facility] ([facility]) [address] [place], [address], 02/09/2025 19:16:55 02/08/2002/08/2025 CBC WITH DIFFE RENTI AL/PL ATELE T RBC 5.11 x10e6 /uL 4.14-5 .80 normal Not Available [facility] ([facility]) [address] [facility], [place], [address], 02/09/2025 19:16:55 02/08/20 25 02/08/2025 CBC WITH DIFFE RENTI AL/PL ATELE T hemoglobin 15.7 g/dL 13.0-1 7.7 normal Not Available [facility] ([facility]) [address] [place], [address], 02/09/2025 19:16:55 02/08/2002/08/2025 CBC WITH DIFFE RENTI AL/PL ATELE T hematocrit 46.1 % 37.5-5 1.0 normal Not Available [facility] ([facility]) [address] [place], [address], 02/09/2025 19:16:55 02/08/2002/08/2025 CBC WITH DIFFE RENTI AL/PL ATELE T MCV 90 fL 79-97 normal Not Available [facility] ([facility]) [address] [place], [address], 02/09/2025 19:16:55 02/08/2002/08/2025 CBC WITH DIFFE RENTI AL/PL ATELE T MCH 30.7 pg 26.6-3 3.0 normal Not Available [facility] ([facility]) [address] [place], [address], 02/09/2025 19:16:55 02/08/2002/08/2025 CBC WITH DIFFE RENTI AL/PL ATELE T MCHC 34.1 g/dL 31.5-3 5.7 normal Not Available [facility] ([facility]) [address] [place], [address], 02/09/2025 19:16:55 02/08/2002/08/2025 CBC WITH DIFFE RENTI AL/PL ATELE T RDW 12.9 % 11.6-1 5.4 Not Available [facility] ([facility]) [address] [place], [address], 02/09/2025 19:16:55 02/08/20 25 02/08/2025 CBC WITH DIFFE RENTI AL/PL ATELE T platelets 252 x10e3 /uL 150-45 0 normal Not Available [facility] ([facility]) [address] [facility], [place], [address], 02/09/2025 19:16:55 02/08/20 25 02/08/2025 CBC WITH DIFFE RENTI AL/PL ATELE T neutrophils 59 % not estab. normal Not Available [facility] ([facility]) [address] [facility], [place], [address], 02/09/2025 19:16:55 02/08/20 25 02/08/2025 CBC WITH DIFFE RENTI AL/PL ATELE T lymphs 21 % not estab. normal Not Available [facility] ([facility]) [address] [facility], [place], [address], 02/09/2025 19:16:55 02/08/20 25 02/08/2025 CBC WITH DIFFE RENTI AL/PL ATELE T monocytes 6 % not estab. normal Not Available [facility] ([facility]) [address] [facility], [place], [address], 02/09/2025 19:16:55 02/08/20 25 02/08/2025 CBC WITH DIFFE RENTI AL/PL ATELE T eos 12 % not estab. normal Not Available [facility] ([facility]) [address] [facility], [place], [address], 02/09/2025 19:16:55 02/08/20 25 02/08/2025 CBC WITH DIFFE RENTI AL/PL ATELE T basos 1 % not estab. normal Not Available [facility] ([facility]) [address] [facility], [place], [address], 02/09/2025 19:16:55 02/08/20 25 02/08/2025 CBC WITH DIFFE RENTI AL/PL ATELE T immature cells JOURNALIST Not Available [facility] ([facility]) [address] [place], [address], 02/09/2025 19:16:55 02/08/20 25 02/08/2025 CBC WITH DIFFE RENTI AL/PL ATELE T neutrophils (absolute) 3.9 x10e3 /uL 1.4-7. 0 normal Not Available [facility] ([facility]) [address] [place], [address], 02/09/2025 19:16:55 02/08/20 25 02/08/2025 CBC WITH DIFFE RENTI AL/PL ATELE T lymphs (absolute) 1.4 x10e3 /uL 0.7-3. 1 normal Not Available [facility] ([facility]) [address] [place], [address], 02/09/2025 19:16:55 02/08/20 25 02/08/2025 CBC WITH DIFFE RENTI AL/PL ATELE T monocytes(ab solute) 0.4 x10e3 /uL 0.1-0. 9 normal Not Available [facility] ([facility]) [address] [place], [address], 02/09/2025 19:16:55 02/08/20 25 02/08/2025 CBC WITH DIFFE RENTI AL/PL ATELE T eos (absolute) 0.8 x10e3 /uL 0.0-0. 4 above high normal Not Available [facility] ([facility]) [address] [place], [address], 02/09/2025 19:16:55 02/08/20 25 02/08/2025 CBC WITH DIFFE RENTI AL/PL ATELE T baso (absolute) 0.1 x10e3 /uL 0.0-0. 2 normal Not Available [facility] ([facility]) [address] [place], [address], 02/09/2025 19:16:55 02/08/20 25 02/08/2025 CBC WITH DIFFE RENTI AL/PL ATELE T immature granulocytes 1 % not estab. Not Available [facility] ([facility]) [address] [facility], [place], [address], 02/09/2025 19:16:55 02/08/20 25 02/08/2025 CBC WITH DIFFE RENTI AL/PL ATELE T immature grans (abs) 0.1 x10e3 /uL 0.0-0. 1 Not Available [facility] ([facility]) [address] [facility], [place], [address], 02/09/2025 19:16:55 02/08/20 25 02/08/2025 CBC WITH DIFFE RENTI AL/PL ATELE T NRBC JOURNALIST Not Available [facility] ([facility]) [address] [facility], [place], [address], 02/09/2025 19:16:55 02/08/20 25 02/08/2025 CBC WITH DIFFE RENTI AL/PL ATELE T hematology comments: JOURNALIST Not Available [facility] ([facility]) [address] [facility], [place], [address], 02/09/2025 19:16:55 02/08/20 25 02/09/2025 IMMUN OGLOB ULIN E, TOTAL immunoglobul in E, total 518 IU/mL 6-495 above high normal Not Available [facility] ([facility]) [address] [facility], [place], [address], 02/09/2025 19:16:56 02/08/[address], sinus es, w/o contr ast No observ ation record ed. [email or web address] [facility] [address], [place], [address], 02/07/2025 09:57:41 02/08/[address], sinus es, w/o contr ast No observ ation record ed. [facility] [address] [place], [address], 02/07/2025 10:02:46 02/12/2002/07/2025 CT, sinus es, w/o contr ast No observ ation record ed. [facility] [address] [facility] [address], [place], [address], 02/11/2025 15:11:29 02/29/20 25 01/26/2024 vera metry testi ng* No observ ation record ed. [email or web address] [facility] [id number] 03/01/2025 11:49:16 Result Notes None recorded. Problems Name Problem SNOMED Code Status Onset Date Resolution Date Notes Provider Name and Address Organization Details Recorded Time Impacted cerumen in right ear 50495636926 12494 Active 2023 Impacted cerumen, right ear; Note: Date Diagnosed : 08/12/2023 12:22 PM (H61.21) Not Available [facility] 4 03:00:00 Sensorine ural hearing loss of bilateral ears 440082932 Active 2023 Sensorine ural hearing loss, bilateral ; Note: Date Diagnosed : 08/12/2023 1:09 PM (H90.3) Not Available [facility] 4 03:00:01 Chronic maxillary sinusitis 85522373 Active 2024 TEJAL LOVE PA-C [address] [place] [address], [place], [address] , [place] [facility] [place] 5 12:09:34 Acute sinusitis 65228860 Active 2024 LAYO RHODES MD [address] [place] [address],[place] [address], [place], [address] , [place] [facility] [place] 5 12:25:03 Chronic sinusitis 87113748 Active 2024 LAYO RHODES MD [address] [place] [address], [place], [address] , [facility] - [facility] [place] 09:57:37 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 100, [place], [address] , [place] - [facility] 09:57:46 Polyp of nasal cavity 906341659 Active 2024 LAYO RHODES MD 100 [facility],[place] [address], [place], [address] , [facility] - [facility] [place] 5 10:02:00 Essential hypertens ion 84551711 Active 2024 LAYO RHODES MD 100 [facility],[place] [address], [place], [address] , [facility] - [facility] 10:06:42 Eosinophi l count above reference range 396903424 Active 2024 LAYO RHODES MD [address] [facility],[place] [address], [place], [address] , [facility] - [facility] 14:42:35 Deviated nasal septum 925052264 Active 2024 LAYO RHODES MD [address] [facility],[place] [address], [place], [address] , [facility] - [facility] 14:42:40 Problem Notes None recorded. Procedures Surgical History Date Name Laterality Status Provider Name and Address Organization Details Recorded Time JMSNasal/Sinus Endoscopy completed LAYO GARCIA MD 100 [facility],[place] [address], [place], [address], [facility] 03/23/2025 14:42:07 Allergy Testing-Full completed FIONA TANNER RN 100 [facility],[place] [address], [place], [address], [facility] - [facility] 02/28/2025 10:31:13 JMSNasal/Sinus Endoscopy completed LAYO GARCIA MD [address] [place] [address],[place] [address], [place], [address], [facility] - [facility] 02/07/2025 10:06:23 Imaging Results None recorded. Procedure [...] Updated DateTime 02/28/2025 170.18 cm 32.1 kg/m2 26289.44 g 95 /min 177/85 mm[Hg] FIONA TANNER, RACHELLE 100 [facility] 100, [facility] [place], [address] , [place] - [facility] 02/28/2025 08:53:33 Social History Question Answer Notes LastModified by Codyizat ion Details LastModified Time Tobacco Smoking Status Never Smoker Agatha bo [place] - [facility] 02/07/2025 09:35:11 How Many Years Have You Consumed Alcohol? 40 Information not available 10/27/2024 What Type Of Uniform Maker Do You Use? None Information not available [...] History Nothing Reported. Medical History Condition Response Tonsil Infections N Emphysema N Depression N COPD N Arthritis N Cancer N Stroke N Headaches N Fibromyalgia N Kidney Disease N Heart Problems Y Anxiety N Migraines N Other Skin Condition N Rhinitis N Bleeding Disorder N Food Allergy N Nasal polyps Y Asthma N Sleep Disorder Y GERD/Reflux N Glaucoma N Nasal or Sinus Problems Y Anesthesia Complications N Hearing Loss N High Cholesterol N Liver Disease N Speech Delay N Allergies/Hayfever N Thyroid Problems N Developmental Delay N Anemia N Immune System Disorder N Heart Attack ([place]) N Diabetes Y Hyperlipidemia N Eczema N Dementia N Hypertension Y Past Encounters Encounter ID Performer Location Encounter Start Date Encounter Closed Date Diagnosis/Indication Diagnosis SNOMED-CT Code Diagnosis ICD10 Code Diagnosis IMO Codes Diagnosis Note [id number] LAYO RHODES MD [facility] [address] [address] 02/07/2025 09:12:54 02/07/2025 10:10:51 Chronic sinusitis 28041621 J32.8 69716 Polyp of nasal cavity 73 8347142 J33.0 Essential hypertension 75925416 I10 53301 Has f/u today with PCP. Previously noted to have different BP in both arms and white coat symptoms He was 196/93 in the left arm and 176/93 in the right arm. He does see cardiology given his history of atrial fibrillati on. He will discuss this afternoon with Dr. Heller whether additional workup needs to be done given the asymmetry and blood pressures. [id number] FIONA TANNER RN Allergy [address] [place] [address] 02/28/2025 08:37:15 02/28/2025 10:32:04 Chronic sinusitis 35801980 J32.8 81444 Health Concerns Section Related Observation LastModified by Organization Detai ls LastModified Time None Recorded Concern Status LastModified by Organization Details LastModified Time None Recorded Payers Encounter Date Sequence Insurance Name Policy Number Policy Marte Covered Member ID Marte Member ID Guarantor Name 02/28/2025 1 [facility] (O) [id number] [place] Downs [id number] Philip Downs
--- OUTSIDE RECORDS SUMMARY | 2025-04-17 11:59 | XMS_ITS | Continuity of Care Document ---
Author Organization [place] - [facility], [facility] Address [address] [place] [address] Care Team Providers Care Lead Handler Name Role Phone FITO HELLER Primary Care Provider [phone] Assessment Encounter Date Assessment Date Assessment LastModified [...] By Organization Details Last Modified Time 03/23/2025 15526 - Continue using nasal rinse twice daily. [...] ng* No observ ation record ed. [email or web address] [facility] [id number] 03/01/2025 11:49:16 Result Notes None recorded. Problems Name Problem SNOMED Code Status Onset Date Resolution Date Notes Provider Name and Address Organization Details Recorded Time Impacted cerumen in right ear 52076809503 78821 Active 2023 Impacted cerumen, right ear; Note: Date Diagnosed : 08/12/2023 12:22 PM (H61.21) Not Available [facility] 03:00:00 Sensorine ural hearing loss of bilateral ears 906198275 Active 2023 Sensorine ural hearing loss, bilateral ; Note: Date Diagnosed : 08/12/2023 1:09 PM (H90.3) Not Available [facility] 4 03:00:01 Chronic maxillary sinusitis 21488714 Active 2024 TEJAL LOVE PA-C [address],[place] [address], [place], [address] , [facility] - [facility] [place] 5 12:09:34 Acute sinusitis 07138438 Active 2024 LAYO RHODES MD [address],[place] [address], [place], [address] , [place] - [facility] [place] 5 12:25:03 Chronic sinusitis 26897620 Active 2024 LAYO RHODES MD [address],[place] [address], [place], [address] , [place] [facility] [place] 5 09:57:37 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 837362639 Active 2024 LAYO RHODES MD [address],[place] [address], [place], [address] , [facility] - [facility] [place] 5 09:57:46 Polyp of nasal cavity 302651504 Active 2024 LAYO RHODES MD [address],[place] [address], [place], [address] , [facility] - [facility] [place] 5 10:02:00 Essential hypertens ion 25382182 Active 2024 LAYO RHODES MD [address],[place] [address], [place], [address] , [place] [facility] [place] 5 10:06:42 Eosinophi l count above reference range 702104926 Active 2024 LAYO RHODES MD [address],[place] [address], [place], [address] , [place] [facility] [place] 14:42:35 Deviated nasal septum 503986198 Active 2024 LAYO RHODES MD 100 [facility],[place] [address], [place], [address] , [facility] 14:42:40 Problem Notes None recorded. Procedures Surgical History Date Name Laterality Status Provider Name and Address Organization Details Recorded Time JMSNasal/Sinus Endoscopy completed LAYO GARCIA MD 100 [facility],[address], [address], [facility] 03/23/2025 14:42:07 Allergy Testing-Full completed FIONA TANNER RN 100 [facility],[address], [address], [facility] 02/28/2025 10:31:13 JMSNasal/Sinus Endoscopy completed LAYO GARCIA MD 100 [facility],[address], [address], [facility] 02/07/2025 10:06:23 Imaging Results None recorded. [...] Updated DateTime 03/23/2025 170.18 cm 32.1 kg/m2 06894.44 g 184/98 mm[Hg] Agatha Pineda [place] - [facility] 03/23/2025 14:27:07 Social History Question Answer Notes LastModified by Organizat ion Details LastModified Time Tobacco Smoking Status Never Smoker Agatha bo [place] - [facility] 02/07/2025 09:35:11 How Many Years Have You Consumed Alcohol? 40 Information not available 10/27/2024 What Type Of Manager Sales Support Do You Use? None Information not available [...] Disorder N Anesthesia Complications N Heart Attack ([place]) N Other Skin Condition N Diabetes Y [...] ICD10 Code Diagnosis IMO Codes Diagnosis Note [id number] FIONA TANNER RN Allergy [address] [place] [address] [place] [address] 02/28/2025 08:37:15 02/28/2025 10:32:04 Chronic sinusitis 72423255 J32.8 71449 [id number] LAYO RHODES MD [facility] [place] [address] [place] [address] 03/23/2025 14:09:39 03/23/2025 14:46:27 Chronic sinusitis 18329103 J32.8 72318 Polyp of n genesis cavity and/or nasal sinus 516270633 J33.9 93554 Eosinophil count above reference range 107253857 R89.8 66734 Deviated nasal septum 12 9109329 J34.2 239167 Health Concerns Section Related Observation LastModified by Organization Detai ls LastModified Time None Recorded Concern Status LastModified by Organization Details LastModified Time None Recorded Payers Encounter Date Sequence Insurance Name Policy Number Policy Marte Covered Member ID Marte Member ID Guarantor Name 03/23/2025 1 [employer] [facility] (PP[facility]) [id number] [place] Downs [id number] [place] Downs Notes Date Note Type Note [...] is retired and previously worked at the [employer] in [place]. LAYO GARCIA MD [address] [place] [address], [address], [facility] - [facility] 03/23/2025 14:44:25
--- OUTSIDE RECORDS SUMMARY | 2025-04-17 11:59 | XMS_ITS | Data Portability ---
Author Organization [place] - [facility], Allergy Address [address] [address] Care Team Providers Care Computed Tomography Technician Name Role Phone FITO HELLER Primary [...] Go To The Location Of Their Choice, [id number] 02/09/2025 19:16:56 CBC w/ auto diff 2024 025 [email or web address] [facility] (Centralized Electronic Ordering - All Locations), Patient Can Go To The Location Of Their Choice, [id number] 02/09/2025 19:16:55 Referral None recorded. Procedures spirometr [...] Imaging CT, sinuses, w/o contrast 2024 025 [email or web address] [facility], [address] [place] [address], [address], 02/28/2025 10:21:08 CT, sinuses, w/o contrast 2024 025 [email or web address] [facility] [place] [address] [place], [address], 02/08/2025 16:40:01 Medication Orders prednison e 20 mg tablet 2024 025 [id number] [address] [place] [address], [address], 02/28/2025 08:53:24 budesonid e 0.5 mg/2 mL suspensio n for nebulizat ion 2024 025 [facility] [address] [place] [address], [address], 02/07/2025 10:03:02 doxycycli ne hyclate 100 mg tablet 2024 025 [facility] [address] [place] [address], [address], 02/28/2025 08:52:47 doxycycli ne hyclate 100 mg tablet 2024 025 [id number] [address] [place] [address], [address], 02/28/2025 08:52:45 prednison e 20 mg tablet 2024 025 [id number] [address] [place] [address], [address], 02/28/2025 08:53:21 Patient TargetsNo targets recorded. Patient Instructions Encounter Date Encounter Id Patient Instructions Last Modified By Organization Details Last Modified Time 02/07/2025 [id number] - Complete the prescribed five-day course of [...] note. [email or web address] Not available 02/07/2025 10:07:00 02/28/2025 [id number] spirometry testing* [email or web address] Not available 02/28/2025 13:46:04 03/23/2025 [id number] - Continue using nasal rinse twice daily. [...] /uL 3.4-10 .8 normal Not Available [facility] ([facility]) [address] [place], [address], 02/09/2025 19:16:55 02/08/2002/08/2025 CBC WITH DIFFE RENTI AL/PL ATELE T RBC 5.11 x10e6 /uL 4.14-5 .80 normal Not Available [facility] ([facility]) [address] [place], [address], 02/09/2025 19:16:55 02/08/2002/08/2025 CBC WITH DIFFE RENTI AL/PL ATELE T hemoglobin 15.7 g/dL 13.0-1 7.7 normal Not Available [facility] ([facility]) [address] [place], [address], 02/09/2025 19:16:55 02/08/20 25 02/08/2025 CBC WITH DIFFE RENTI AL/PL ATELE T hematocrit 46.1 % 37.5-5 1.0 normal Not Available [facility] ([facility]) [address] [place], [address], 02/09/2025 19:16:55 02/08/2002/08/2025 CBC WITH DIFFE RENTI AL/PL ATELE T MCV 90 fL 79-97 normal Not Available [facility] ([facility]) [address] [place], [address], 02/09/2025 19:16:55 02/08/2002/08/2025 CBC WITH DIFFE RENTI AL/PL ATELE T MCH 30.7 pg 26.6-3 3.0 normal Not Available [facility] ([facility]) [address] [place], [address], 02/09/2025 19:16:55 02/08/20 25 02/08/2025 CBC WITH DIFFE RENTI AL/PL ATELE T MCHC 34.1 g/dL 31.5-3 5.7 normal Not Available [facility] ([facility]) [address] [place], [address], 02/09/2025 19:16:55 02/08/2002/08/2025 CBC WITH DIFFE RENTI AL/PL ATELE T RDW 12.9 % 11.6-1 5.4 Not Available [facility] ([facility]) [address] [place], [address], 02/09/2025 19:16:55 02/08/20 25 02/08/2025 CBC WITH DIFFE RENTI AL/PL ATELE T platelets 252 x10e3 /uL 150-45 0 normal Not Available [facility] ([facility]) [address] [place], [address], 02/09/2025 19:16:55 02/08/20 25 02/08/2025 CBC WITH DIFFE RENTI AL/PL ATELE T neutrophils 59 % not estab. normal Not Available [facility] ([facility]) [address] [facility], [place], [address], 02/09/2025 19:16:55 02/08/20 25 02/08/2025 CBC WITH DIFFE RENTI AL/PL ATELE T lymphs 21 % not estab. normal Not Available [facility] ([facility]) [address] [facility], [place], [address], 02/09/2025 19:16:55 02/08/20 25 02/08/2025 CBC WITH DIFFE RENTI AL/PL ATELE T monocytes 6 % not estab. normal Not Available [facility] ([facility]) [address] [facility], [place], [address], 02/09/2025 19:16:55 02/08/20 25 02/08/2025 CBC WITH DIFFE RENTI AL/PL ATELE T eos 12 % not estab. normal Not Available [facility] ([facility]) [address] [facility], [place], [address], 02/09/2025 19:16:55 02/08/20 25 02/08/2025 CBC WITH DIFFE RENTI AL/PL ATELE T basos 1 % not estab. normal Not Available [facility] ([facility]) [address] [facility], [place], [address], 02/09/2025 19:16:55 02/08/20 25 02/08/2025 CBC WITH DIFFE RENTI AL/PL ATELE T immature cells PLANNING ADVISOR Not Available [facility] ([facility]) [address] [place], [address], 02/09/2025 19:16:55 02/08/20 25 02/08/2025 CBC WITH DIFFE RENTI AL/PL ATELE T neutrophils (absolute) 3.9 x10e3 /uL 1.4-7. 0 normal Not Available [facility] ([facility]) [address] [facility], [place], [address], 02/09/2025 19:16:55 02/08/20 25 02/08/2025 CBC WITH DIFFE RENTI AL/PL ATELE T lymphs (absolute) 1.4 x10e3 /uL 0.7-3. 1 normal Not Available [facility] ([facility]) [address] [facility], [place], [address], 02/09/2025 19:16:55 02/08/20 25 02/08/2025 CBC WITH DIFFE RENTI AL/PL ATELE T monocytes(ab solute) 0.4 x10e3 /uL 0.1-0. 9 normal Not Available [facility] ([facility]) [address] [facility], [place], [address], 02/09/2025 19:16:55 02/08/20 25 02/08/2025 CBC WITH DIFFE RENTI AL/PL ATELE T eos (absolute) 0.8 x10e3 /uL 0.0-0. 4 above high normal Not Available [facility] ([facility]) [address] [facility], [place], [address], 02/09/2025 19:16:55 02/08/20 25 02/08/2025 CBC WITH DIFFE RENTI AL/PL ATELE T baso (absolute) 0.1 x10e3 /uL 0.0-0. 2 normal Not Available [facility] ([facility]) [address] [place], [address], 02/09/2025 19:16:55 02/08/20 25 02/08/2025 CBC WITH DIFFE RENTI AL/PL ATELE T immature granulocytes 1 % not estab. Not Available [facility] ([facility]) [address] [place], [address], 02/09/2025 19:16:55 02/08/20 25 02/08/2025 CBC WITH DIFFE RENTI AL/PL ATELE T immature grans (abs) 0.1 x10e3 /uL 0.0-0. 1 Not Available [facility] ([facility]) [address] [facility], [place], [address], 02/09/2025 19:16:55 02/08/20 25 02/08/2025 CBC WITH DIFFE RENTI AL/PL ATELE T NRBC PLANNING ADVISOR Not Available [facility] ([facility]) [address] [facility], [place], [address], 02/09/2025 19:16:55 02/08/20 25 02/08/2025 CBC WITH DIFFE RENTI AL/PL ATELE T hematology comments: PLANNING ADVISOR Not Available [facility] ([facility]) [address] [facility], [place], [address], 02/09/2025 19:16:55 02/08/20 25 02/09/2025 IMMUN OGLOB ULIN E, TOTAL immunoglobul in E, total 518 IU/mL 6-495 above high normal Not Available [facility] ([facility]) [address] [facility], [place], [address], 02/09/2025 19:16:56 02/08/[address], sinus es, w/o contr ast No observ ation record ed. [facility] [address], [address], 02/07/2025 09:57:41 02/08/[address], sinus es, w/o contr ast No observ ation record ed. [facility] [address], [address], 02/07/2025 10:02:46 02/12/20 25 02/07/2025 CT, sinus es, w/o contr ast No observ ation record ed. [facility] [address], [place], [address], 02/11/2025 15:11:29 02/29/2001/26/2024 vera jessica testi ng* No observ ation record ed. [facility] [id number] 03/01/2025 11:49:16 Result Notes None recorded. Problems Name Problem SNOMED Code Status Onset Date Resolution Date Notes Provider Name and Address Organization Details Recorded Time Impacted cerumen in right ear 10906583553 61018 Active 2023 Impacted cerumen, right ear; Note: Date Diagnosed : 08/12/2023 12:22 PM (H61.21) Not Available [facility] 4 03:00:00 Sensorine ural hearing loss of bilateral ears 722847029 Active 2023 Sensorine ural hearing loss, bilateral ; Note: Date Diagnosed : 08/12/2023 1:09 PM (H90.3) Not Available [facility] 4 03:00:01 Chronic maxillary sinusitis 95008389 Active 2024 TEJAL LOVE PA-C [address] [facility],[place] [address], [place], [address] , [facility] - [facility] [place] 12:09:34 Acute sinusitis 15543945 Active 2024 LAYO RHODES MD 100 [facility],[place] [address], [place], [address] , [facility] - [facility] [place] 5 12:25:03 Chronic sinusitis 90879637 Active 2024 LAYO RHODES MD [address] [facility],[place] [address], [place], [address] , [facility] - [facility] [place] 5 09:57:37 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 385270293 Active 2024 LAYO RHODES MD [address] [facility],[place] [address], [place], [address] , [facility] - [facility] [place] 5 09:57:46 Polyp of nasal cavity 583586894 Active 2024 LAYO RHODES MD [address] [facility],[place] [address], [place], [address] , [facility] 5 10:02:00 Essential hypertens ion 48281478 Active 2024 LAYO RHODES MD [address] [facility],[place] [address], [place], [address] , [facility] 5 10:06:42 Eosinophi l count above reference range 379833512 Active 2024 LAYO RHODES MD [address] [facility],[place] [address], [facility] [place], [address] , [facility] 14:42:35 Deviated nasal septum 455087398 Active 2024 LAYO RHODES MD [address] [facility],[place] [address], [place], [address] , [facility] 14:42:40 Problem Notes None recorded. Procedures Surgical History Date Name Laterality Status Provider Name and Address Organization Details Recorded Time JMSNasal/Sinus Endoscopy completed LAYO GARCIA MD 100 [facility],[address], [address], [facility] 03/23/2025 14:42:07 5 Allergy Testing-Full completed FIONA TANNER, RACHELLE [address] [facility],[address], [address], [facility] 02/28/2025 10:31:13 5 JMSNasal/Sinus Endoscopy completed LAYO GARCIA MD [address] [facility],[address], [address], [facility] 02/07/2025 10:06:23 Imaging Results None recorded. [...] Updated DateTime 10/27/2024 170.18 cm 32.4 kg/m2 56779.62 g Andra Solis [facility] 10/27/2024 11:30:21 Date Recorded Body height Body mass index (BMI) Body weight Provider Name and Address Organization Details Last Updated DateTime 11/29/2024 170.18 cm 32.4 kg/m2 40975.62 g Jamil Preciado [facility] 11/29/2024 08:37:33 Date Recorded Heart rate Systolic And Diastolic Provider Name and Address Organization Details Last Updated DateTime 02/07/2025 73 /min 176/93 mm[Hg] LAYO GARCIA MD [address] [place] [address], [address], [facility] 02/07/2025 10:07:44 Date Recorded Body height Body mass index (BMI) Body weight Heart rate Systolic And Diastolic Provider Name and Address Organization Details Last Updated DateTime 02/28/2025 170.18 cm 32.1 kg/m2 16575.44 g 95 /min 177/85 mm[Hg] FIONA TANNER RN [address] [place] [address], [place], [address] , [facility] 02/28/2025 08:53:33 Date Recorded Body height Body mass index (BMI) Body weight Systolic And Diastolic Provider Name and Address Organization Details Last Updated DateTime 03/23/2025 170.18 cm 32.1 kg/m2 60200.44 g 184/98 mm[Hg] Agatha Pineda [facility] 03/23/2025 14:27:07 Social History Question Answer Notes LastModified by Organizat ion Details LastModified Time Tobacco Smoking Status Never Smoker Agatha bo [facility] 02/07/2025 09:35:11 How Many Years Have You Consumed Alcohol? 40 Information not available 10/27/2024 What Type Of Campaign Worker Do You Use? None Information not available [...] Disorder N Anesthesia Complications N Heart Attack ([place]) N Other Skin Condition N Diabetes Y [...] ICD10 Code Diagnosis IMO Codes Diagnosis Note [id number] TEJAL LOVE PA-C [facility] [address] [address] 10/27/2024 11:19:56 10/27/2024 12:11:18 Chronic maxillary sinusitis 87248099 J32.0 2493 Acute sinusitis 65575563 J01.80 183767076 15365 TEJAL LOVE PA-C [facility] [address] [address] 11/29/2024 08:33:15 11/29/2024 09:18:49 Acute sinusitis 32518199 J01.80 815932843 Chronic ryley xijesicaary sinusitis 69454663 J32.0 2493 [id number] LAYO RHODES MD [facility] [address] [address] 02/07/2025 09:12:54 02/07/2025 10:10:51 Chronic sinusitis 27433396 J32.8 69940 Polyp of nasal cavity 73 1656530 J33.0 Essential hypertension 29478730 I10 40511 Has f/u today with PCP. Previously noted to have different BP in both arms and white coat symptoms He was 196/93 in the left arm and 176/93 in the right arm. He does see cardiology given his history of atrial fibrillati on. He will discuss this afternoon with Dr. Heller whether additional workup needs to be done given the asymmetry and blood pressures. [id number] FIONA TANNER RN Allergy [address] [place] [address] 02/28/2025 08:37:15 02/28/2025 10:32:04 Chronic sinusitis 98489536 J32.8 26461 45700 LAYO RHODES MD [facility] [address] [address] 03/23/2025 14:09:39 03/23/2025 14:46:27 Chronic sinusitis 61637489 J32.8 83938 Polyp of n genesis cavity and/or nasal sinus 765540062 J33.9 43442 Eosinophil count above reference range 071467074 R89.8 93113 Deviated nasal septum 12 1137764 J34.2 [id number] Health Concerns Section Related Observation LastModified by Organization Detai ls LastModified Time None Recorded Concern Status LastModified by Organization Details LastModified Time None Recorded Advance Directives Directive None Recorded Payers Insurance Date Sequence Insurance Name Policy Number Policy Marte Covered Member ID Marte Member ID Guarantor Name 10/26/2024 1 [facility] (INDEMNITY) [id number] Philip Downs [id number] Philip Downs 03/23/2025 1 [facility]CS (PPO) [id number] Philip Downs [id number] Philip Downs Notes Date Note Type Note Provider Name and Address Organization Details Recorded Time 10/27/2024 text/html ROS as noted in the [facility] 59-year-old male presents for evaluation of [...] thick nasal drainage. LAYO GARCIA MD [address], [address], [facility] 10/27/2024 12:25:10 11/29/2024 text/html ROS as noted in the [facility] 59-year-old male presents for reevaluation of [...] has significant seasonal allergies. LAYO GARCIA MD [address] [place] [address], [address], [facility] - [facility] 11/29/2024 12:36:01 02/07/2025 text/html Philip Downs is [...] with ablation in 2014 and sees a finisher fine diamond dies every six months. He denies current use of blood thinners. LAYO GARCIA MD [address] [place] [address], [phone], [facility] - [facility] 02/07/2025 10:10:17 03/23/2025 text/html Philip Downs is [...] is retired and previously worked at the [employer] in [place]. ALYO GARCIA MD [address] [place] [address],[address], [address], [facility] - [facility] 03/23/2025 14:44:25
--- OUTSIDE RECORDS SUMMARY | 2025-04-17 11:59 | XMS_ITS | Clinical Summary ---
Author Organization [facility] Address [address] [place] [address] Phone Care Team Providers Care Concrete Boom Pump Operator Name Role Phone Michael Rhoades MD Primary Care Provider + [phone] Surgical History Surgery Date Site/Laterality Comments OTHER [...] Documents on File Type Date Recorded Patient Computer Training Specialist Expl anation Health Care Decision (hx) 04/24/2022 HE ALTH CARE PROXY Health Care Decision (hx) 04/24/2022 HE ALTH CARE PROXY Health Care Decision (hx) 04/24/2022 HE ALTH CARE PROXY Care Teams Concrete Boom Pump Operator Relationship Specialty Start Date End Date Michael Rhoades MD [address] [place], [place] [address] PCP - General Internal Medicine 08/07/24
--- OUTSIDE RECORDS SUMMARY | 2025-04-17 11:59 | XMS_ITS | Patient Health Record ---
Author Organization [facility] Address [address] [place], [place] [id number] Care Team Providers Care Student Affairs Dean Name Role Phone PINA FITO Primary Care Provider [place], NURSING Unavailable [phone] ALLERGIES No Known Allergies REASON FOR REFERRAL Reason 07/06/24 + 07/13/24 w appt abnormal ekg R94.31 Referral Organization [facility] Referring Provider First Name FITO Referring Provider Last Name PINA Referring Provider Speciality Internal M edicine Referred Provider GUANAKO HINES Referred Provider Specialty Internal Med icine General Notes Dr. Mayela Pickard , [place] and [facility], [address] [place] [address]. [id number], (P) [phone] (F) , Date of Service: Referral required first, Diagnosis: Abnormal EKG, w/4 visits, Patient needs as soon as possible as he is on a time constraint with his employer. Patient needs an appointment before 08/04/24., Patient will call back with fax number.ROBERTO [facility] 06/19/2024 02:58:24 PM > the patient called back w the fax number [phone] for the above referral request. ROBERTO [facility] 07/06/2024 10:20:30 AM > the patient called in and said that he would need this referral processed LAURE. ROBERTO Lori P Admin 07/06/2024 11:19:00 AM > faxed medical referral, notes and labs to [phone]>dx faxed to same fax number but sent separately, Nikki MEJIA P Admin 07/12/2024 12:59:43 PM > resent referral as it is URGENT now>also faxed ekg from 2022, Nikki MEJIA P Admin 07/13/2024 01:18:14 PM > Refaxed referral to [phone]>diagnostics faxed to same number separately>NO REFERRAL REQUIRED [...] (primary) hypertension (I10) Active confirmed Essential hypertension (11546038) Problem Type 2 diabetes mellitus without complications (E11.9) Active confirmed Type II diabetes mellitus without complication (024766118) Problem Disorder of lipoprotein metabolism, unspecified (E78.9) Active confirmed Disorder of lipoprotein storage and metabolism (disorder) (578138875) Problem Obstructive sleep apnea (adult) (pediatric) (G47.33) Active confirmed Obstructive sleep apnea syndrome (disorder) (91723012) Problem Nonrheumatic mitral valve disorder, unspecified (I34.9) Active confirmed Mitral valve disorder (42103366) Problem Unspecified atrial fibrillation (I48.91) Active confirmed Atrial fibrillation (89924386) Problem Irregular heart rate (I49.9) Active confirmed 967195789 Problem Recurrent sinusitis (J32.9) Active confirmed 938899294 Problem Leukocytosis, unspecified (D72.829) Active confirmed 466979826 VITAL SIGNS Blood pressure diastolic 94 mm Hg 02/07/2025 Height 66 in 02/07/2025 Blood pressure systolic 186 mm Hg 02/07/2025 Weight 213 lbs 02/07/2025 BMI 34.38 kg/m2 02/07/2025 Encounters Encounter Location Date Provider Diagnosis [place] [id number] 05/16/2024 FITO HELLER Essential (primary) hypertension I10 ; Disorder of lipoprotein metabolism, unspecified E78.9 ; Unspecified atrial fibrillation I48.91 ; Type 2 diabetes mellitus without complications E11.9 ; Obstructive sleep apnea (adult) (pediatric) G47.33 ; Nonrheumatic mitral valve disorder, unspecified I34.9 and History of nocturia Z87.898 [place] [address] 07/06/2024 [place] [address] 08/07/2024 FITO HELLER History of nocturia Z87.898 ; Deficiency of other specified B group vitamins E53.8 ; Essential (primary) hypertension I10 ; Disorder of lipoprotein metabolism, unspecified E78.9 ; Unspecified atrial fibrillation I48.91 ; Obstructive sleep apnea (adult) (pediatric) G47.33 ; Type 2 diabetes mellitus without complications E11.9 and Recurrent sinusitis J32.9 [place] [id number] 08/07/2024 [place] [address] 08/08/2024 FITO HELLER Leukocytosis, unspecified D72.829 [place] [address] 08/09/2024 FITO HELLER [address] [address] 08/14/[address] [address] 09/18/[address] [address] 09/18/[address] [address] 09/21/[address] [address] 09/22/[address] [address] 02/07/2025 FITO HELLER Essential (primary) hypertension I10 ; Disorder of lipoprotein metabolism, unspecified E78.9 ; Unspecified atrial fibrillation I48.91 ; Type 2 diabetes mellitus without complications E11.9 ; Obstructive sleep apnea (adult) (pediatric) G47.33 ; Nocturia R35.1 ; Nonrheumatic mitral valve disorder, unspecified I34.9 ; Lung nodules R91.8 and Irregular heart rate I49.[address] [address] 02/07/2025 [facility] Encounter for immunization Z23 [address] [address] 02/12/[address] [address] 02/16/[address] [address] 02/23/[address] [address] 04/03/[address] [address] 04/06/2025 [facility] ASSESSMENTS Encounter Date Diagnosis Assessment Notes [...] diet walk 30 minutes a day. 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 08/07/2024 History of nocturia (ICD-10 - Z87.898) Stable. Check PSA declines physical exam 05/16/2024 Disorder of lipoprotein metabolism, unspecified (ICD-10 [...] ANTIBODY 08/10/2023 IRON AND TIBC 08/10/2023 Hemoglobin N5b-533005 05/12/2024 Prostate-Specific Ag (PSA)-350139 2023 CBC, Platelet, w/o Differential-337884 1 07/13/2023 Lipid Panel-052872 05/12/2024 Hepatic Function Panel (7)-[id number] 2023 BMP8+eGFR-007249 05/12/2024 Immunoglobulin E, Total-668345 Next Appt Details Provider Name:FITO ALFRED, 09/05/2025 01:45:00 PM, [address] [place], [address], Insurance Providers Payer Name Payer Address Payer Phone Subscriber Number Group Number Insured Name Patient Relationship to Insured Coverage Start Date Coverage End Date [facility] [address] [place] [id number] [phone] [id number] REJI MITCHELL Self - patient is the insured MEDICAL (GENERAL) HISTORY Medical History History ICD Code Moderate aortic regurgitation by echo Mild mitral regurgitiation by echo 09/10 Hypercholesterolemia-Zocor started Pneumonitis per Family [facility] medical ce nter 09/10 Hypertension Type [...] 2022 simple l eft renal cyst Ophthal[place] [facility] June [address] Jose [...] active dise ase 24-hour ambulatory blood pressure [facility] er 2022 average 130/[address] January [address]24 [address]. Alexei glover pulmonary. Multiple benign lateral pulmonary nodules 1 year sinus issues Surgical History Surgery Date(Month/Year) wisdom teeth extraction( all 4)
--- OUTSIDE RECORDS SUMMARY | 2025-04-17 11:59 | XMS_ITS | Continuity of Care Document ---
Author Organization [place] [facility], [facility] Address [address] [place] [address] Care Team Providers Care Pocket Setter Name Role Phone FITO HELLER Primary Care [...] Imaging CT, sinuses, w/o contrast 2024 025 [email or web address] [facility], [address] [place] [address], [address], 02/28/2025 10:21:08 CT, sinuses, w/o contrast 2024 025 [id number] [facility], [address] [place] [address], [address], 02/08/2025 16:40:01 Medication Orders prednison e 20 mg tablet [address] [facility]acy #[id number], [address] [place], [address], 02/28/2025 08:53:24 budesonid e 0.5 mg/2 mL suspensio n for nebulizat ion [address] [facility]armacy #[id number], [address] [place] [address], [address], 02/07/2025 10:03:02 doxycycli ne hyclate 100 mg tablet [address] [facility] #[id number], [address] [place], [address], 02/28/2025 08:52:47 Patient TargetsNo targets recorded. Patient Instructions Encounter Date Encounter Id Patient Instructions Last Modified By Organization Details Last Modified Time 02/07/2025 [id number] - Complete the prescribed five-day course of [...] /uL 3.4-10 .8 normal Not Available [facility] ([facility]) [address] [place], [address], 02/09/2025 19:16:55 02/08/2002/08/2025 CBC WITH DIFFE RENTI AL/PL ATELE T RBC 5.11 x10e6 /uL 4.14-5 .80 normal Not Available [facility] ([facility]) [address] [facility], [place], [address], 02/09/2025 19:16:55 02/08/20 25 02/08/2025 CBC WITH DIFFE RENTI AL/PL ATELE T hemoglobin 15.7 g/dL 13.0-1 7.7 normal Not Available [facility] ([facility]) [address] [place], [address], 02/09/2025 19:16:55 02/08/2002/08/2025 CBC WITH DIFFE RENTI AL/PL ATELE T hematocrit 46.1 % 37.5-5 1.0 normal Not Available [facility] ([facility]) [address] [place], [address], 02/09/2025 19:16:55 02/08/2002/08/2025 CBC WITH DIFFE RENTI AL/PL ATELE T MCV 90 fL 79-97 normal Not Available [facility] ([facility]) [address] [place], [address], 02/09/2025 19:16:55 02/08/2002/08/2025 CBC WITH DIFFE RENTI AL/PL ATELE T MCH 30.7 pg 26.6-3 3.0 normal Not Available [facility] ([facility]) [address] [place], [address], 02/09/2025 19:16:55 02/08/2002/08/2025 CBC WITH DIFFE RENTI AL/PL ATELE T MCHC 34.1 g/dL 31.5-3 5.7 normal Not Available [facility] ([facility]) [address] [place], [address], 02/09/2025 19:16:55 02/08/2002/08/2025 CBC WITH DIFFE RENTI AL/PL ATELE T RDW 12.9 % 11.6-1 5.4 Not Available [facility] ([facility]) [address] [place], [address], 02/09/2025 19:16:55 02/08/20 25 02/08/2025 CBC WITH DIFFE RENTI AL/PL ATELE T platelets 252 x10e3 /uL 150-45 0 normal Not Available [facility] ([facility]) [address] [facility], [place], [address], 02/09/2025 19:16:55 02/08/20 25 02/08/2025 CBC WITH DIFFE RENTI AL/PL ATELE T neutrophils 59 % not estab. normal Not Available [facility] ([facility]) [address] [facility], [place], [address], 02/09/2025 19:16:55 02/08/2002/08/2025 CBC WITH DIFFE RENTI AL/PL ATELE T lymphs 21 % not estab. normal Not Available [facility] ([facility]) [address] [facility], [place], [address], 02/09/2025 19:16:55 02/08/20 25 02/08/2025 CBC WITH DIFFE RENTI AL/PL ATELE T monocytes 6 % not estab. normal Not Available [facility] ([facility]) [address] [facility], [place], [address], 02/09/2025 19:16:55 02/08/20 25 02/08/2025 CBC WITH DIFFE RENTI AL/PL ATELE T eos 12 % not estab. normal Not Available [facility] ([facility]) [address] [facility], [place], [address], 02/09/2025 19:16:55 02/08/20 25 02/08/2025 CBC WITH DIFFE RENTI AL/PL ATELE T basos 1 % not estab. normal Not Available [facility] ([facility]) [address] [facility], [place], [address], 02/09/2025 19:16:55 02/08/20 25 02/08/2025 CBC WITH DIFFE RENTI AL/PL ATELE T immature cells TEMPERATURE CONTROL INSPECTOR Not Available [facility] ([facility]) [address] [place], [address], 02/09/2025 19:16:55 02/08/20 25 02/08/2025 CBC WITH DIFFE RENTI AL/PL ATELE T neutrophils (absolute) 3.9 x10e3 /uL 1.4-7. 0 normal Not Available [facility] ([facility]) [address] [place], [address], 02/09/2025 19:16:55 02/08/20 25 02/08/2025 CBC WITH DIFFE RENTI AL/PL ATELE T lymphs (absolute) 1.4 x10e3 /uL 0.7-3. 1 normal Not Available [facility] ([facility]) [address] [place], [address], 02/09/2025 19:16:55 02/08/20 25 02/08/2025 CBC WITH DIFFE RENTI AL/PL ATELE T monocytes(ab solute) 0.4 x10e3 /uL 0.1-0. 9 normal Not Available [facility] ([facility]) [address] [place], [address], 02/09/2025 19:16:55 02/08/20 25 02/08/2025 CBC WITH DIFFE RENTI AL/PL ATELE T eos (absolute) 0.8 x10e3 /uL 0.0-0. 4 above high normal Not Available [facility] ([facility]) [address] [place], [address], 02/09/2025 19:16:55 02/08/20 25 02/08/2025 CBC WITH DIFFE RENTI AL/PL ATELE T baso (absolute) 0.1 x10e3 /uL 0.0-0. 2 normal Not Available [facility] ([facility]) [address] [place], [address], 02/09/2025 19:16:55 02/08/20 25 02/08/2025 CBC WITH DIFFE RENTI AL/PL ATELE T immature granulocytes 1 % not estab. Not Available [facility] ([facility]) [address] [facility], [place], [address], 02/09/2025 19:16:55 02/08/20 25 02/08/2025 CBC WITH DIFFE RENTI AL/PL ATELE T immature grans (abs) 0.1 x10e3 /uL 0.0-0. 1 Not Available [facility] ([facility]) [address] [facility], [place], [address], 02/09/2025 19:16:55 02/08/20 25 02/08/2025 CBC WITH DIFFE RENTI AL/PL ATELE T NRBC TEMPERATURE CONTROL INSPECTOR Not Available [facility] ([facility]) [address] [facility], [place], [address], 02/09/2025 19:16:55 02/08/20 25 02/08/2025 CBC WITH DIFFE RENTI AL/PL ATELE T hematology comments: TEMPERATURE CONTROL INSPECTOR Not Available [facility] ([facility]) [address] [facility], [place], [address], 02/09/2025 19:16:55 02/08/20 25 02/09/2025 IMMUN OGLOB ULIN E, TOTAL immunoglobul in E, total 518 IU/mL 6-495 above high normal Not Available [facility] ([facility]) [address] [facility], [place], [address], 02/09/2025 19:16:56 02/08/[address], sinus es, w/o contr ast No observ ation record ed. [email or web address] [facility] [address], [place], [address], 02/07/2025 09:57:41 02/08/[address], sinus es, w/o contr ast No observ ation record ed. [facility] [address] [place], [address], 02/07/2025 10:02:46 02/12/20 25 02/07/2025 CT, sinus es, w/o contr ast No observ ation record ed. [facility] [address] [facility] [address], [place], [address], 02/11/2025 15:11:29 02/29/20 25 01/26/2024 vera metry testi ng* No observ ation record ed. [email or web address] [facility] [id number] 03/01/2025 11:49:16 Result Notes None recorded. Problems Name Problem SNOMED Code Status Onset Date Resolution Date Notes Provider Name and Address Organization Details Recorded Time Impacted cerumen in right ear 88869639595 59975 Active 2023 Impacted cerumen, right ear; Note: Date Diagnosed : 08/12/2023 12:22 PM (H61.21) Not Available [facility] 4 03:00:00 Sensorine ural hearing loss of bilateral ears 606116851 Active 2023 Sensorine ural hearing loss, bilateral ; Note: Date Diagnosed : 08/12/2023 1:09 PM (H90.3) Not Available [facility] 4 03:00:01 Chronic maxillary sinusitis 87656023 Active 2024 TEJAL LOVE PA-C [address] [place] [address], [place], [address] , [place] [facility] 5 12:09:34 Acute sinusitis 49586637 Active 2024 LAYO RHODES MD [address] [place] [address], [place], [address] , [place] [facility] 5 12:25:03 Chronic sinusitis 58048932 Active 2024 LAYO RHODES MD [address] [place] [address], [place], [address] , [facility] - [facility] 5 09:57:37 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 357357300 Active 2024 LAYO RHODES MD [address] [facility] [address], [place], [address] , [facility] - [facility] 09:57:46 Polyp of nasal cavity 840537511 Active 2024 LAYO RHODES MD [address] [facility] 100, [place], [address] , [facility] - [facility] 5 10:02:00 Essential hypertens ion 65638355 Active 2024 LAYO RHODES MD [address] [facility],[place] [address], [place], [address] , [facility] - [facility] 5 10:06:42 Eosinophi l count above reference range 410351831 Active 2024 LAYO RHODES MD [address] [facility],[place] [address], [place], [address] , [facility] - [facility] 14:42:35 Deviated nasal septum 768806678 Active 2024 LAYO RHODES MD [address] [facility],[place] [address], [place], [address] , [facility] - [facility] 14:42:40 Problem Notes None recorded. Procedures Surgical History Date Name Laterality Status Provider Name and Address Organization Details Recorded Time JMSNasal/Sinus Endoscopy completed LAYO GARCIA MD [address] [facility],[place] [address], [place], [address], [facility] 03/23/2025 14:42:07 Allergy Testing-Full completed FIONA TANNER RN 100 [facility],[facility] [address], [place], [address], [facility] 02/28/2025 10:31:13 JMSNasal/Sinus Endoscopy completed LAYO GARCIA MD [address] [facility],[place] [address], [place], [address], [facility] - [facility] 02/07/2025 10:06:23 Imaging Results None recorded. [...] 73 /min 176/93 mm[Hg] LAYO GARCIA MD [address] [place] [address],[address], [address], [place] - [facility] 02/07/2025 10:07:44 Social History Question Answer Notes LastModified by [employer] ion Details LastModified Time Tobacco Smoking Status Never Smoker Agatha bo [place] - [facility] 02/07/2025 09:35:11 How Many Years Have You Consumed Alcohol? 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 None Information not available [...] Emphysema N Migraines N Thyroid Problems N COPD N Depression N Developmental Delay N Glaucoma N Nasal or Sinus Problems Y Anemia N Immune System Disorder N Anesthesia Complications N Heart Attack ([place]) N Other Skin Condition N Diabetes Y [...] ICD10 Code Diagnosis IMO Codes Diagnosis Note [id number] LAYO RHODES MD [facility] [address] [address] 02/07/2025 09:12:54 02/07/2025 10:10:51 Chronic sinusitis 98466812 J32.8 53751 Polyp of nasal cavity 73 8147709 J33.0 Essential hypertension 30545937 I10 58053 Has f/u today with PCP. Previously noted [...] Marte Member ID Guarantor Name 02/07/2025 1 [facility] [id number] Philip Downs [id number] Philip Downs Notes Date Note Type Note Provider Name and Address Organization Details Recorded Time 02/07/2025 text/html Philip Downs is a 59-year-old male who presents for sinus-related symptoms. He reports experiencing recurrent symptoms for nearly a year, with temporary relief following antibiotic treatment. Symptoms typically return approximately two months after completing antibiotics. He has a history of asthma managed with [facility] and has been under the care of [...] with ablation in 2014 and sees a scallop shucker every six months. He denies current use of blood thinners. LAYO GARCIA MD [address] [place] [address], [place], [address], [facility] - [facility] 02/07/2025 10:10:17
== END 2025-04-17 10:50 | disposition home or self-care (01) ==
LOC: HO.HKAS 10:25
PROVIDERS: PCP Internal Medicine; Visit Provider Internal Medicine Nephrology
DX: I10 Essential (primary) hypertension (principal)
CPT/HCPCS: 99214

== ENCOUNTER → 2025-04-20 09:19 | Outpatient (BNVA) | payer OTHER, SELFPAY | PROVIDERS: PCP Internal Medicine; Visit Provider Internal Medicine Nephrology | DX: I10 Essential (primary) hypertension (principal) | CPT/HCPCS: 93786; 93788 ==

== ENCOUNTER 2025-05-08 11:08 | Outpatient (AMB) | payer OTHER, SELFPAY ==
--- NOTE | 2025-05-08 11:18 | HO.NEPHOV_ITS ---
Vital Signs 05/08/25 11:19 Height 5 ft 7 in Weight 215 lb 6 oz BMI 33.7 BP 154/70 H Blood Pressure Location Lt brachial Position Sitting Pulse 71 Pulse Source Pulse Oximeter Pulse Oximetry (%) 96 Oxygen Delivery Method Room Air Intake Visit Reasons: 2wk f/u-LVM Heavy Cleaner Required: No Accompanied by: Self / Same As Patient Allergies No Known Allergies Allergy (Verified 05/08/25 11:18) HPI Comments Details: Philip was seen in follow-up of his hypertension. 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 He is continuing to be active. His blood pressure has not been at goal. He has lost some weight. He does not have any chest pain, shortness of breath, paroxysmal nocturnal dyspnea, orthopnea, pedal edema or urinary symptoms. He did not complain of any orthostatic symptoms. He has not very strict about low-sodium diet. He avoids nonsteroidal anti-inflammatory medications and maintain good hydration. He recently had a 24 hour BPM which showed well controlled BP. [facility] Medical History (Updated 04/17/25 @ 10:45 by Ivan Queen MD) IRINA on CPAP Pulmonary nodules Allergies Asthma Eosinophilia Hypertension Surgical History H/O prior ablation treatment Family History Mother Hypertension Social History Alcohol intake: current Comment: Socially Patient Tobacco Use Status: Never used Tobacco Review of Systems Const All systems reviewed & are unremarkable except as noted in HPI and below Physical Exam Const General: comfortable and no acute distress Orientation/consciousness: patient oriented x3 HEENT Head: Yes normocephalic Mouth: Normal oral and palatal mucosa present Eyes EOM: EOMs intact bilaterally Neck Neck: Yes supple Resp Auscultation: clear to auscultation bilaterally Cardio Jugular venous distension: no JVD Rate: regular rate GI Palpation (GI): Soft to palpation Auscultation: normal bowel sounds General: Yes no CVA tenderness Back/Spine/Pelvis Back: no CVA tenderness Skin General skin exam: no rashes or lesions noted Neuro General: patient oriented x3 and moves all extremities Extrem General: Yes no pedal edema Assessment & Plan Assessment & Plan (1) Hypertension: Code(s): I10 - Essential (primary) hypertension Category: Medical Qualifiers: Hypertension type: primary hypertension Qualified Code(s): I10 - Essential (primary) hypertension Plan Philip has hypertension for long time and is on antihypertensives. He has not had any irregular heart rhythm or palpitations. He does not have any retinopathy, left ventricular hypertrophy, proteinuria or abnormal renal functions. He should cut back sodium in the diet. He should maintain good hydration and stay away from nonsteroidal anti-inflammatories as much as he can. His blood pressure is currently well controlled on the current medication regimen which is confirmed by a recent 24 hour BPM. I discussed the results with him. NO changes were made. Follow-up given Coding Level of Care Code Est Pt Level 4 (85114) 24800 ABPM Reading Diagnoses Primary hypertension I10 Hypertension type: primary hypertension
[2025-05-08 11:19] VITALS: BP 154/70; PULSE 71; O2SAT 96; BMI 33.7
--- OUTSIDE RECORDS SUMMARY | 2025-05-08 13:11 | XMS_ITS | Continuity of Care Document ---
Author Organization [place] - [facility], Allergy Address [address] [address] Care Team Providers Care Claims Specialist Name Role Phone FITO HELLER Primary Care Provider [phone] Assessment No assessment recorded. Plan of Treatment [...] By Organization Details Last Modified Time 02/28/2025 [id number] spirometry testing* [email or web address] Not available 02/28/2025 13:46:04 Reason for Referral None Reported. Results Created Date Observation Date Name Description Value Unit Range Abnormal Flag Note LastModifiedBy Organization Detail LastModifiedTime 02/08/2002/08/2025 CBC WITH DIFFE RENTI AL/PL ATELE T WBC 6.6 x10e3 /uL 3.4-10 .8 normal Not Available [facility] ([facility]) [address] [place], [address], 02/09/2025 19:16:55 02/08/2002/08/2025 CBC WITH DIFFE RENTI AL/PL ATELE T RBC 5.11 x10e6 /uL 4.14-5 .80 normal Not Available [facility] ([facility]) [address] [facility], [place], [address], 02/09/2025 19:16:55 02/08/20 25 02/08/2025 CBC WITH DIFFE RENTI AL/PL ATELE T hemoglobin 15.7 g/dL 13.0-1 7.7 normal Not Available [facility] ([facility]) [address] [place], [address], 02/09/2025 19:16:55 02/08/2002/08/2025 CBC WITH DIFFE RENTI AL/PL ATELE T hematocrit 46.1 % 37.5-5 1.0 normal Not Available [facility] ([facility]) [address] [place], [address], 02/09/2025 19:16:55 02/08/2002/08/2025 CBC WITH DIFFE RENTI AL/PL ATELE T MCV 90 fL 79-97 normal Not Available [facility] ([facility]) [address] [place], [address], 02/09/2025 19:16:55 02/08/2002/08/2025 CBC WITH DIFFE RENTI AL/PL ATELE T MCH 30.7 pg 26.6-3 3.0 normal Not Available [facility] ([facility]) [address] [place], [address], 02/09/2025 19:16:55 02/08/2002/08/2025 CBC WITH DIFFE RENTI AL/PL ATELE T MCHC 34.1 g/dL 31.5-3 5.7 normal Not Available [facility] ([facility]) [address] [place], [address], 02/09/2025 19:16:55 02/08/2002/08/2025 CBC WITH DIFFE RENTI AL/PL ATELE T RDW 12.9 % 11.6-1 5.4 Not Available [facility] ([facility]) [address] [place], [address], 02/09/2025 19:16:55 02/08/20 25 02/08/2025 CBC WITH DIFFE RENTI AL/PL ATELE T platelets 252 x10e3 /uL 150-45 0 normal Not Available [facility] ([facility]) [address] [facility], [place], [address], 02/09/2025 19:16:55 02/08/20 25 02/08/2025 CBC WITH DIFFE RENTI AL/PL ATELE T neutrophils 59 % not estab. normal Not Available [facility] ([facility]) [address] [facility], [place], [address], 02/09/2025 19:16:55 02/08/20 25 02/08/2025 CBC WITH DIFFE RENTI AL/PL ATELE T lymphs 21 % not estab. normal Not Available [facility] ([facility]) [address] [facility], [place], [address], 02/09/2025 19:16:55 02/08/20 25 02/08/2025 CBC WITH DIFFE RENTI AL/PL ATELE T monocytes 6 % not estab. normal Not Available [facility] ([facility]) [address] [facility], [place], [address], 02/09/2025 19:16:55 02/08/20 25 02/08/2025 CBC WITH DIFFE RENTI AL/PL ATELE T eos 12 % not estab. normal Not Available [facility] ([facility]) [address] [facility], [place], [address], 02/09/2025 19:16:55 02/08/20 25 02/08/2025 CBC WITH DIFFE RENTI AL/PL ATELE T basos 1 % not estab. normal Not Available [facility] ([facility]) [address] [facility], [place], [address], 02/09/2025 19:16:55 02/08/20 25 02/08/2025 CBC WITH DIFFE RENTI AL/PL ATELE T immature cells MARINE DRILLER Not Available [facility] ([facility]) [address] [place], [address], 02/09/2025 19:16:55 02/08/20 25 02/08/2025 CBC WITH DIFFE RENTI AL/PL ATELE T neutrophils (absolute) 3.9 x10e3 /uL 1.4-7. 0 normal Not Available [facility] ([facility]) [address] [place], [address], 02/09/2025 19:16:55 02/08/20 25 02/08/2025 CBC WITH DIFFE RENTI AL/PL ATELE T lymphs (absolute) 1.4 x10e3 /uL 0.7-3. 1 normal Not Available [facility] ([facility]) [address] [place], [address], 02/09/2025 19:16:55 02/08/20 25 02/08/2025 CBC WITH DIFFE RENTI AL/PL ATELE T monocytes(ab solute) 0.4 x10e3 /uL 0.1-0. 9 normal Not Available [facility] ([facility]) [address] [place], [address], 02/09/2025 19:16:55 02/08/20 25 02/08/2025 CBC WITH DIFFE RENTI AL/PL ATELE T eos (absolute) 0.8 x10e3 /uL 0.0-0. 4 above high normal Not Available [facility] ([facility]) [address] [place], [address], 02/09/2025 19:16:55 02/08/20 25 02/08/2025 CBC WITH DIFFE RENTI AL/PL ATELE T baso (absolute) 0.1 x10e3 /uL 0.0-0. 2 normal Not Available [facility] ([facility]) [address] [place], [address], 02/09/2025 19:16:55 02/08/20 25 02/08/2025 CBC WITH DIFFE RENTI AL/PL ATELE T immature granulocytes 1 % not estab. Not Available [facility] ([facility]) [address] [facility], [place], [address], 02/09/2025 19:16:55 02/08/20 25 02/08/2025 CBC WITH DIFFE RENTI AL/PL ATELE T immature grans (abs) 0.1 x10e3 /uL 0.0-0. 1 Not Available [facility] ([facility]) [address] [facility], [place], [address], 02/09/2025 19:16:55 02/08/20 25 02/08/2025 CBC WITH DIFFE RENTI AL/PL ATELE T NRBC MARINE DRILLER Not Available [facility] ([facility]) [address] [facility], [place], [address], 02/09/2025 19:16:55 02/08/20 25 02/08/2025 CBC WITH DIFFE RENTI AL/PL ATELE T hematology comments: MARINE DRILLER Not Available [facility] ([facility]) [address] [facility], [place], [address], 02/09/2025 19:16:55 02/08/20 25 02/09/2025 IMMUN OGLOB ULIN E, TOTAL immunoglobul in E, total 518 IU/mL 6-495 above high normal Not Available [facility] ([facility]) [address] [facility], [place], [address], 02/09/2025 19:16:56 02/08/[address], sinus es, w/o contr ast No observ ation record ed. [email or web address] [facility] [address], [place], [address], 02/07/2025 09:57:41 02/08/[address], sinus es, w/o contr ast No observ ation record ed. [facility] [address] [place], [address], 02/07/2025 10:02:46 02/12/2002/07/2025 CT, sinus es, w/o contr ast No observ ation [facility] ed. [facility] [address] [facility] [address], [place], [address], 02/11/2025 15:11:29 02/29/20 25 01/26/2024 vera metry testi ng* No observ ation record ed. [email or web address] [facility] [id number] 03/01/2025 11:49:16 Result Notes None recorded. Problems Name Problem SNOMED Code Status Onset Date Resolution Date Notes Provider Name and Address Organization Details Recorded Time Impacted cerumen in right ear 22171581152 45282 Active 2023 Impacted cerumen, right ear; Note: Date Diagnosed : 08/12/2023 12:22 PM (H61.21) Not Available [facility] 4 03:00:00 Sensorine ural hearing loss of bilateral ears 376199378 Active 2023 Sensorine ural hearing loss, bilateral ; Note: Date Diagnosed : 08/12/2023 1:09 PM (H90.3) Not Available [facility] 4 03:00:01 Chronic maxillary sinusitis 84000226 Active 2024 TEJAL LOVE PA-C [address] [place] [address], [place], [address] , [place] [facility] 5 12:09:34 Acute sinusitis 00250327 Active 2024 LAYO RHODES MD [address] [place] [address],[place] [address], [place], [address] , [facility] 5 12:25:03 Chronic sinusitis 39571118 Active 2024 LAYO RHODES MD [address] [place] [address], [place], [address] , [facility] 09:57:37 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 428146562 Active 2024 LAYO RHODES MD 100 [facility] 100, [place], [address] , [place] - [facility] 09:57:46 Polyp of nasal cavity 039500273 Active 2024 LAYO RHODES MD 100 [facility],[place] [address], [place], [address] , [facility] - [facility] 5 10:02:00 Essential hypertens ion 51625115 Active 2024 LAYO RHODES MD [address] [facility],[place] [address], [place], [address] , [facility] - [facility] 10:06:42 Eosinophi l count above reference range 625788218 Active 2024 LAYO RHODES MD [address] [facility],[place] [address], [place], [address] , [facility] - [facility] 14:42:35 Deviated nasal septum 747711579 Active 2024 LAYO RHODES MD [address] [facility],[place] [address], [place], [address] , [facility] - [facility] 14:42:40 Problem Notes None recorded. Procedures Surgical History Date Name Laterality Status Provider Name and Address Organization Details Recorded Time JMSNasal/Sinus Endoscopy completed LAYO GARCIA MD [address] [facility],[place] [address], [place], [address], [facility] 03/23/2025 14:42:07 Allergy Testing-Full completed FIONA TANNER RN [address] [facility],[place] [address], [place], [address], [facility] - [facility] 02/28/2025 10:31:13 JMSNasal/Sinus Endoscopy completed LAYO GARCIA MD [address] [place] [address],[place] [address], [place], [address], [facility] - [facility] 02/07/2025 10:06:23 Imaging Results None recorded. [...] Updated DateTime 02/28/2025 170.18 cm 32.1 kg/m2 58042.44 g 95 /min 177/85 mm[Hg] FIONA TANNER, RACHELLE 100 [facility] 100, [facility] [place], [address] , [facility] - [facility] 02/28/2025 08:53:33 Social History Question Answer Notes LastModified by [email or web address] ion Details LastModified Time Tobacco Smoking Status Never Smoker Agatha bo [place] - [facility] 02/07/2025 09:35:11 How Many Years Have You Consumed Alcohol? 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 None Information not available [...] Disorder N Anesthesia Complications N Heart Attack ([place]) N Other Skin Condition N Diabetes Y [...] ICD10 Code Diagnosis IMO Codes Diagnosis Note [id number] LAYO RHODES MD [facility] [address] [address] 02/07/2025 09:12:54 02/07/2025 10:10:51 Chronic sinusitis 51196848 J32.8 44911 Polyp of nasal cavity 73 0684089 J33.0 Essential hypertension 20654761 I10 40264 Has f/u today with PCP. Previously noted to have different BP in both arms and white coat symptoms He was 196/93 in the left arm and 176/93 in the right arm. He does see cardiology given his history of atrial fibrillati on. He will discuss this afternoon with Dr. Heller whether additional workup needs to be done given the asymmetry and blood pressures. [id number] FIONA TANNER RN Allergy [address] [place] [address] 02/28/2025 08:37:15 02/28/2025 10:32:04 Chronic sinusitis 80399331 J32.8 90448 Health Concerns Section Related Observation LastModified by Organization Detai ls LastModified Time None Recorded Concern Status LastModified by Organization Details LastModified Time None Recorded Payers Encounter Date Sequence Insurance Name Policy Number Policy Marte Covered Member ID Marte Member ID Guarantor Name 02/28/2025 1 [facility] ([id number]) [id number] Philip Downs [id number] Philip Downs
--- OUTSIDE RECORDS SUMMARY | 2025-05-08 13:11 | XMS_ITS | Data Portability ---
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 Procedures spirometr [...] Imaging CT, sinuses, w/o contrast 2024 025 [facility], [address] [place] [address], [address], 02/28/2025 10:21:08 CT, sinuses, w/o contrast 2024 025 [email or web address] [facility] [place] [address] [place], [address], 02/08/2025 16:40:01 Medication Orders prednison e 20 mg tablet 2024 025 [id number], [address] [place] [address], [address], 02/28/2025 08:53:24 budesonid e 0.5 mg/2 mL suspensio n for nebulizat ion 2024 025 [facility], [address] [place] [address], [address], 02/07/2025 10:03:02 doxycycli ne hyclate 100 mg tablet 2024 025 [facility], [address] [place] [address], [address], 02/28/2025 08:52:47 doxycycli ne hyclate 100 mg tablet 2024 025 [facility] [address] [place] [address], [address], 02/28/2025 08:52:45 prednison e 20 mg tablet 2024 025 [facility] [address] [place] [address], [address], 02/28/2025 08:53:21 Patient TargetsNo targets recorded. Patient Instructions Encounter Date Encounter Id Patient Instructions Last Modified By Organization Details Last Modified Time 02/07/2025 [id number] - Complete the prescribed five-day course of [...] note. [email or web address] Not available 02/07/2025 10:07:00 02/28/2025 [id number] spirometry testing* [email or web address] Not available 02/28/2025 13:46:04 03/23/2025 [id number] - Continue using nasal rinse twice daily. [...] /uL 3.4-10 .8 normal Not Available [facility] ([facility]) [address] [place], [address], 02/09/2025 19:16:55 02/08/2002/08/2025 CBC WITH DIFFE RENTI AL/PL ATELE T RBC 5.11 x10e6 /uL 4.14-5 .80 normal Not Available [facility] ([facility]) [address] [place], [address], 02/09/2025 19:16:55 02/08/2002/08/2025 CBC WITH DIFFE RENTI AL/PL ATELE T hemoglobin 15.7 g/dL 13.0-1 7.7 normal Not Available [facility] ([facility]) [address] [place], [address], 02/09/2025 19:16:55 02/08/20 25 02/08/2025 CBC WITH DIFFE RENTI AL/PL ATELE T hematocrit 46.1 % 37.5-5 1.0 normal Not Available [facility] ([facility]) [address] [place], [address], 02/09/2025 19:16:55 02/08/2002/08/2025 CBC WITH DIFFE RENTI AL/PL ATELE T MCV 90 fL 79-97 normal Not Available [facility] ([facility]) [address] [place], [address], 02/09/2025 19:16:55 02/08/2002/08/2025 CBC WITH DIFFE RENTI AL/PL ATELE T MCH 30.7 pg 26.6-3 3.0 normal Not Available [facility] ([facility]) [address] [place], [address], 02/09/2025 19:16:55 02/08/20 25 02/08/2025 CBC WITH DIFFE RENTI AL/PL ATELE T MCHC 34.1 g/dL 31.5-3 5.7 normal Not Available [facility] ([facility]) [address] [place], [address], 02/09/2025 19:16:55 02/08/2002/08/2025 CBC WITH DIFFE RENTI AL/PL ATELE T RDW 12.9 % 11.6-1 5.4 Not Available [facility] ([facility]) [address] [place], [address], 02/09/2025 19:16:55 02/08/20 25 02/08/2025 CBC WITH DIFFE RENTI AL/PL ATELE T platelets 252 x10e3 /uL 150-45 0 normal Not Available [facility] ([facility]) [address] [place], [address], 02/09/2025 19:16:55 02/08/20 25 02/08/2025 CBC WITH DIFFE RENTI AL/PL ATELE T neutrophils 59 % not estab. normal Not Available [facility] ([facility]) [address] [facility], [place], [address], 02/09/2025 19:16:55 02/08/20 25 02/08/2025 CBC WITH DIFFE RENTI AL/PL ATELE T lymphs 21 % not estab. normal Not Available [facility] ([facility]) [address] [facility], [place], [address], 02/09/2025 19:16:55 02/08/20 25 02/08/2025 CBC WITH DIFFE RENTI AL/PL ATELE T monocytes 6 % not estab. normal Not Available [facility] ([facility]) [address] [facility], [place], [address], 02/09/2025 19:16:55 02/08/20 25 02/08/2025 CBC WITH DIFFE RENTI AL/PL ATELE T eos 12 % not estab. normal Not Available [facility] ([facility]) [address] [facility], [place], [address], 02/09/2025 19:16:55 02/08/20 25 02/08/2025 CBC WITH DIFFE RENTI AL/PL ATELE T basos 1 % not estab. normal Not Available [facility] ([facility]) [address] [facility], [place], [address], 02/09/2025 19:16:55 02/08/20 25 02/08/2025 CBC WITH DIFFE RENTI AL/PL ATELE T immature cells LIVESTOCK SPECULATOR Not Available [facility] ([facility]) [address] [place], [address], 02/09/2025 19:16:55 02/08/20 25 02/08/2025 CBC WITH DIFFE RENTI AL/PL ATELE T neutrophils (absolute) 3.9 x10e3 /uL 1.4-7. 0 normal Not Available [facility] ([facility]) [address] [facility], [place], [address], 02/09/2025 19:16:55 02/08/20 25 02/08/2025 CBC WITH DIFFE RENTI AL/PL ATELE T lymphs (absolute) 1.4 x10e3 /uL 0.7-3. 1 normal Not Available [facility] ([facility]) [address] [facility], [place], [address], 02/09/2025 19:16:55 02/08/20 25 02/08/2025 CBC WITH DIFFE RENTI AL/PL ATELE T monocytes(ab solute) 0.4 x10e3 /uL 0.1-0. 9 normal Not Available [facility] ([facility]) [address] [facility], [place], [address], 02/09/2025 19:16:55 02/08/20 25 02/08/2025 CBC WITH DIFFE RENTI AL/PL ATELE T eos (absolute) 0.8 x10e3 /uL 0.0-0. 4 above high normal Not Available [facility] ([facility]) [address] [facility], [place], [address], 02/09/2025 19:16:55 02/08/20 25 02/08/2025 CBC WITH DIFFE RENTI AL/PL ATELE T baso (absolute) 0.1 x10e3 /uL 0.0-0. 2 normal Not Available [facility] ([facility]) [address] [place], [address], 02/09/2025 19:16:55 02/08/20 25 02/08/2025 CBC WITH DIFFE RENTI AL/PL ATELE T immature granulocytes 1 % not estab. Not Available [facility] ([facility]) [address] [place], [address], 02/09/2025 19:16:55 02/08/20 25 02/08/2025 CBC WITH DIFFE RENTI AL/PL ATELE T immature grans (abs) 0.1 x10e3 /uL 0.0-0. 1 Not Available [facility] ([facility]) [address] [facility], [place], [address], 02/09/2025 19:16:55 02/08/20 25 02/08/2025 CBC WITH DIFFE RENTI AL/PL ATELE T NRBC LIVESTOCK SPECULATOR Not Available [facility] ([facility]) [address] [facility], [place], [address], 02/09/2025 19:16:55 02/08/20 25 02/08/2025 CBC WITH DIFFE RENTI AL/PL ATELE T hematology comments: LIVESTOCK SPECULATOR Not Available [facility] ([facility]) [address] [facility], [place], [address], 02/09/2025 19:16:55 02/08/20 25 02/09/2025 IMMUN OGLOB ULIN E, TOTAL immunoglobul in E, total 518 IU/mL 6-495 above high normal Not Available [facility] ([facility]) [address] [facility], [place], [address], 02/09/2025 19:16:56 02/08/[address], sinus es, w/o contr ast No observ ation record ed. [facility] [address], [address], 02/07/2025 09:57:41 02/08/[address], sinus es, w/o contr ast No observ ation record ed. [facility] [address], [address], 02/07/2025 10:02:46 02/12/20 25 02/07/2025 CT, sinus es, w/o contr ast No observ ation record ed. [facility] [address], [place], [address], 02/11/2025 15:11:29 02/29/2001/26/2024 vera jessica testi ng* No observ ation record ed. [facility] [id number] 03/01/2025 11:49:16 Result Notes None recorded. Problems Name Problem SNOMED Code Status Onset Date Resolution Date Notes Provider Name and Address Organization Details Recorded Time Impacted cerumen in right ear 67752468260 14837 Active 2023 Impacted cerumen, right ear; Note: Date Diagnosed : 08/12/2023 12:22 PM (H61.21) Not Available [facility] 4 03:00:00 Sensorine ural hearing loss of bilateral ears 915241341 Active 2023 Sensorine ural hearing loss, bilateral ; Note: Date Diagnosed : 08/12/2023 1:09 PM (H90.3) Not Available [facility] 4 03:00:01 Chronic maxillary sinusitis 14018421 Active 2024 TEJAL LOVE PA-C 100 [facility],[place] [address], [place], [address] , [facility] - [facility] [place] 12:09:34 Acute sinusitis 04790628 Active 2024 LAYO RHODES MD 100 [facility],[place] [address], [place], [address] , [facility] - [facility] [place] 5 12:25:03 Chronic sinusitis 41824528 Active 2024 LAYO RHODES MD 100 [facility],[place] [address], [place], [address] , [facility] - [facility] [place] 5 09:57:37 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 514423307 Active 2024 LAYO RHODES MD 100 [facility],[place] [address], [place], [address] , [facility] - [facility] [place] 5 09:57:46 Polyp of nasal cavity 238308312 Active 2024 LAYO RHODES MD 100 [facility],[place] [address], [place], [address] , [facility] 5 10:02:00 Essential hypertens ion 70006080 Active 2024 LAYO RHODES MD 100 [facility],[place] [address], [place], [address] , [facility] 5 10:06:42 Eosinophi l count above reference range 901758420 Active 2024 LAYO RHODES MD 100 [facility],[place] [address], [facility] [place], [address] , [facility] 14:42:35 Deviated nasal septum 701762671 Active 2024 LAYO RHODES MD 100 [facility],[place] [address], [place], [address] , [facility] 14:42:40 Problem Notes None recorded. Procedures Surgical History Date Name Laterality Status Provider Name and Address Organization Details Recorded Time JMSNasal/Sinus Endoscopy completed LAYO GARCIA MD 100 [facility],[address], [address], [facility] 03/23/2025 14:42:07 5 Allergy Testing-Full completed FIONA TANNER, RACHELLE 100 [facility],[address], [address], [facility] 02/28/2025 10:31:13 5 JMSNasal/Sinus Endoscopy completed LAYO GARCIA MD 100 [facility],[address], [address], [facility] 02/07/2025 10:06:23 Imaging Results None [...] Updated DateTime 10/27/2024 170.18 cm 32.4 kg/m2 90689.62 g Andra Solis [facility] 10/27/2024 11:30:21 Date Recorded Body height Body mass index (BMI) Body weight Provider Name and Address Organization Details Last Updated DateTime 11/29/2024 170.18 cm 32.4 kg/m2 46224.62 g Jamil Preciado [facility] 11/29/2024 08:37:33 Date Recorded Heart rate Systolic And Diastolic Provider Name and Address Organization Details Last Updated DateTime 02/07/2025 73 /min 176/93 mm[Hg] LAYO GARCIA MD [address] [place] [address], [address], [facility] 02/07/2025 10:07:44 Date Recorded Body height Body mass index (BMI) Body weight Heart rate Systolic And Diastolic Provider Name and Address Organization Details Last Updated DateTime 02/28/2025 170.18 cm 32.1 kg/m2 57144.44 g 95 /min 177/85 mm[Hg] FIONA TANNER RN [address] [place] [address], [place], [address] , [facility] 02/28/2025 08:53:33 Date Recorded Body height Body mass index (BMI) Body weight Systolic And Diastolic Provider Name and Address Organization Details Last Updated DateTime 03/23/2025 170.18 cm 32.1 kg/m2 75874.44 g 184/98 mm[Hg] Agatha Pineda [facility] 03/23/2025 14:27:07 Social History Question Answer Notes LastModified by Organizat ion Details LastModified Time Tobacco Smoking Status Never Smoker Agatha bo [facility] 02/07/2025 09:35:11 How Many Years Have You Consumed Alcohol? 40 Information not available 10/27/2024 What Type Of Cash Processing Specialist Do You Use? None Information not available [...] Disorder N Anesthesia Complications N Heart Attack ([place]) N Other Skin Condition N Diabetes Y [...] ICD10 Code Diagnosis IMO Codes Diagnosis Note [id number] TEJAL LOVE PA-C [facility] [address] [address] 10/27/2024 11:19:56 10/27/2024 12:11:18 Chronic maxillary sinusitis 92178482 J32.0 2493 Acute sinusitis 36632986 J01.80 423465963 11556 TEJAL LOVE PA-C [facility] [address] [address] 11/29/2024 08:33:15 11/29/2024 09:18:49 Acute sinusitis 94926891 J01.80 172217776 Chronic ryley xijesicaary sinusitis 46428602 J32.0 2493 16389 LAYO RHODES MD [facility] [address] [address] 02/07/2025 09:12:54 02/07/2025 10:10:51 Chronic sinusitis 53555895 J32.8 43321 Polyp of nasal cavity 73 3668093 J33.0 Essential hypertension 16952712 I10 97170 Has f/u today with PCP. Previously noted to have different BP in both arms and white coat symptoms He was 196/93 in the left arm and 176/93 in the right arm. He does see cardiology given his history of atrial fibrillati on. He will discuss this afternoon with Dr. Heller whether additional workup needs to be done given the asymmetry and blood pressures. 27079 FIONA TANNER RN Allergy [address] [place] [address] 02/28/2025 08:37:15 02/28/2025 10:32:04 Chronic sinusitis 00830980 J32.8 41016 23408 LAYO RHODES MD [facility] [address] [address] 03/23/2025 14:09:39 03/23/2025 14:46:27 Chronic sinusitis 57064560 J32.8 52951 Polyp of n genesis cavity and/or nasal sinus 749930369 J33.9 41963 Eosinophil count above reference range 547407784 R89.8 13267 Deviated nasal septum 12 5712545 J34.2 596095 Health Concerns Section Related Observation LastModified by Organization Detai ls LastModified Time None Recorded Concern Status LastModified by Organization Details LastModified Time None Recorded Advance Directives Directive None Recorded Payers Insurance Date Sequence Insurance Name Policy Number Policy Marte Covered Member ID Marte Member ID Guarantor Name 10/26/2024 1 [facility] [employer] (INDEMNITY) [id number] Philip Downs [id number] Philip Downs 03/23/2025 1 [facility] (PPO) [id number] Philip Downs [id number] Philip Downs Notes Date Note Type Note Provider Name and Address Organization Details Recorded Time 10/27/2024 text/html [facility] 59-year-old male presents for evaluation of [...] thick nasal drainage. LAYO GARCIA MD [address], [address], [facility] 10/27/2024 12:25:10 11/29/2024 text/html [facility] 59-year-old male presents for reevaluation of [...] has significant seasonal allergies. LAYO GARCIA MD [address] [place] [address], [address], [facility] - [facility] 11/29/2024 12:36:01 02/07/2025 text/html Philip Downs is [...] with ablation in 2014 and sees a floor framer every six months. He denies current use of blood thinners. LAYO GARCIA MD [address] [place] [address], [address], [facility] - [facility] 02/07/2025 10:10:17 03/23/2025 text/html Philip Downs is [...] is retired and previously worked at the [employer] in [place]. LAYO GARCIA MD [address] [place] [address],[address], [address], [facility] - [facility] 03/23/2025 14:44:25
--- OUTSIDE RECORDS SUMMARY | 2025-05-08 13:11 | XMS_ITS | Continuity of Care Document ---
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 [...] ng* No observ ation record ed. hlorinser [facility] [id number] 03/01/2025 11:49:16 Result Notes None recorded. Problems Name Problem SNOMED Code Status Onset Date Resolution Date Notes Provider Name and Address Organization Details Recorded Time Impacted cerumen in right ear 37105300173 37766 Active 2023 Impacted cerumen, right ear; Note: Date Diagnosed : 08/12/2023 12:22 PM (H61.21) Not Available [facility] 03:[facility]:00 Sensorine ural hearing loss of bilateral ears 254510142 Active 2023 Sensorine ural hearing loss, bilateral ; Note: Date Diagnosed : 08/12/2023 1:09 PM (H90.3) Not Available [facility] 4 03:00:01 Chronic maxillary sinusitis 14668211 Active 2024 TEJAL LOVE PA-C [address], [place], [address] , [facility] - [facility] [place] 5 12:09:34 Acute sinusitis 94375312 Active 2024 LAYO RHODES MD [address], [place], [address] , [place] [facility] [place] 5 12:25:03 Chronic sinusitis 94097405 Active 2024 LAYO RHODES MD [address], [place], [address] , [place] [facility] [place] 5 09:57:37 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 633885779 Active 2024 LAYO RHODES MD [address], [place], [address] , [facility] - [facility] [place] 5 09:57:46 Polyp of nasal cavity 734826790 Active 2024 LAYO RHODES MD [address], [place], [address] , [facility] - [facility] [place] 5 10:02:00 Essential hypertens ion 41227321 Active 2024 LAYO RHODES MD [address], [place], [address] , [place] [facility] [place] 5 10:06:42 Eosinophi l count above reference range 318122593 Active 2024 LAYO RHODES MD [address], [place], [address] , [place] [facility] [place] 14:42:35 Deviated nasal septum 014019395 Active 2024 LAYO RHODES MD 100 [facility],[place] [address], [place], [address] , [facility] 14:42:40 Problem Notes None recorded. Procedures Surgical History Date Name Laterality Status Provider Name and Address Organization Details Recorded Time JMSNasal/Sinus Endoscopy completed LAYO GARCIA MD 100 [facility],[address], [address], [facility] 03/23/2025 14:42:07 Allergy Testing-Full completed FIONA TANNER RN 100 [facility],[address], [address], [facility] 02/28/2025 10:31:13 JMSNasal/Sinus Endoscopy completed LAYO GARCIA MD 100 [facility],[address], [address], [facility] 02/07/2025 10:06:23 Imaging Results None recorded. Procedure [...] Updated DateTime 03/23/2025 170.18 cm 32.1 kg/m2 77489.44 g 184/98 mm[Hg] Agatha Pineda [place] - [facility] 03/23/2025 14:27:07 Social History Question Answer Notes LastModified by Organizat ion Details LastModified Time Tobacco Smoking Status Never Smoker Agatha bo [place] - [facility] 02/07/2025 09:35:11 How Many Years Have You Consumed Alcohol? 40 Information not available 10/27/2024 What Type Of Wire Weaver Do You Use? None Information not available [...] Disorder N Anesthesia Complications N Heart Attack ([place]) N Other Skin Condition N Diabetes Y [...] ICD10 Code Diagnosis IMO Codes Diagnosis Note [id number] FIONA TANNER RN Allergy [address] [place] [address] [place] [address] 02/28/2025 08:37:15 02/28/2025 10:32:04 Chronic sinusitis 31678923 J32.8 80357 16513 LAYO RHODES MD [facility] [place] [address] [place] [address] 03/23/2025 14:09:39 03/23/2025 14:46:27 Chronic sinusitis 66929724 J32.8 11483 Polyp of n genesis cavity and/or nasal sinus 748080416 J33.9 83819 Eosinophil count above reference range 567825359 R89.8 09636 Deviated nasal septum 12 2732361 J34.2 298516 Health Concerns Section Related Observation LastModified by Organization Detai ls LastModified Time None Recorded Concern Status LastModified by Organization Details LastModified Time None Recorded Payers Encounter Date Sequence Insurance Name Policy Number Policy Marte Covered Member ID Marte Member ID Guarantor Name 03/23/2025 1 [employer] [facility] (PPO) [id number] Philip Downs [id number] Philip Downs Notes Date Note Type Note [...] is retired and previously worked at the [employer] in [place]. LAYO GARCIA MD [address] [place] [address], [address], [facility] - [facility] 03/23/2025 14:44:25
--- OUTSIDE RECORDS SUMMARY | 2025-05-08 13:11 | XMS_ITS | Continuity of Care Document ---
Author Organization [place] - [facility], [facility] Address [address] [place] [address] Care Team Providers Care [employer] Sc[employer] Coordinator Name Role Phone FITO HELLER Primary Care Provider [phone] Assessment Encounter Date Assessment Date Assessment LastModified by Organization Details LastModified Time 02/07/2025 02/07/2025 Philip Downs demonstrates recurrent sinus symptoms with nasal polyps [...] Imaging CT, sinuses, w/o contrast 2024 025 [email or web address] [facility], [address] [place] [address], [phone], 02/28/2025 10:21:08 CT, sinuses, w/o contrast 2024 025 [email or web address] [facility], [address] [place] [address], [phone], 02/08/2025 16:40:01 Medication Orders prednison e 20 mg tablet [address] [facility]/Pharmacy #[id number], [address] [place], [address], 02/28/2025 08:53:24 budesonid e 0.5 mg/2 mL suspensio n for nebulizat ion [address] [facility]/Pharmacy #[id number], [address] [place] [address], [address], 02/07/2025 10:03:02 doxycycli ne hyclate 100 mg tablet [address] [facility]/Pharmacy #[id number], [address] [place], [address], 02/28/2025 08:52:47 Patient TargetsNo targets recorded. Patient Instructions Encounter Date Encounter Id Patient Instructions Last Modified By Organization Details Last Modified Time 02/07/2025 [id number] - Complete the prescribed five-day course of [...] [facility]) [address] [place], [address], 02/09/2025 19:16:55 02/08/2002/08/2025 CBC WITH DIFFE RENTI AL/PL ATELE T RBC 5.11 x10e6 /uL 4.14-5 .80 normal Not Available [facility] ([facility]) [address] [facility], [place], [address], 02/09/2025 19:16:55 02/08/20 25 02/08/2025 CBC WITH DIFFE RENTI AL/PL ATELE T hemoglobin 15.7 g/dL 13.0-1 7.7 normal Not Available [facility] ([facility]) [address] [place], [address], 02/09/2025 19:16:55 02/08/2002/08/2025 CBC WITH DIFFE RENTI AL/PL ATELE T hematocrit 46.1 % 37.5-5 1.0 normal Not Available [facility] ([facility]) [address] [place], [address], 02/09/2025 19:16:55 02/08/2002/08/2025 CBC WITH DIFFE RENTI AL/PL ATELE T MCV 90 fL 79-97 normal Not Available [facility] ([facility]) [address] [place], [address], 02/09/2025 19:16:55 02/08/2002/08/2025 CBC WITH DIFFE RENTI AL/PL ATELE T MCH 30.7 pg 26.6-3 3.0 normal Not Available [facility] ([facility]) [address] [place], [address], 02/09/2025 19:16:55 02/08/2002/08/2025 CBC WITH DIFFE RENTI AL/PL ATELE T MCHC 34.1 g/dL 31.5-3 5.7 normal Not Available [facility] ([facility]) [address] [place], [address], 02/09/2025 19:16:55 02/08/2002/08/2025 CBC WITH DIFFE RENTI AL/PL ATELE T RDW 12.9 % 11.6-1 5.4 Not Available [facility] ([facility]) [address] [place], [address], 02/09/2025 19:16:55 02/08/20 25 02/08/2025 CBC WITH DIFFE RENTI AL/PL ATELE T platelets 252 x10e3 /uL 150-45 0 normal Not Available [facility] ([facility]) [address] [facility], [place], [address], 02/09/2025 19:16:55 02/08/20 25 02/08/2025 CBC WITH DIFFE RENTI AL/PL ATELE T neutrophils 59 % not estab. normal Not Available [facility] ([facility]) [address] [facility], [place], [address], 02/09/2025 19:16:55 02/08/2002/08/2025 CBC WITH DIFFE RENTI AL/PL ATELE T lymphs 21 % not estab. normal Not Available [facility] ([facility]) [address] [facility], [place], [address], 02/09/2025 19:16:55 02/08/20 25 02/08/2025 CBC WITH DIFFE RENTI AL/PL ATELE T monocytes 6 % not estab. normal Not Available [facility] ([facility]) [address] [facility], [place], [address], 02/09/2025 19:16:55 02/08/20 25 02/08/2025 CBC WITH DIFFE RENTI AL/PL ATELE T eos 12 % not estab. normal Not Available [facility] ([facility]) [address] [facility], [place], [address], 02/09/2025 19:16:55 02/08/20 25 02/08/2025 CBC WITH DIFFE RENTI AL/PL ATELE T basos 1 % not estab. 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 0 normal Not Available [facility] ([facility]) [address] [place], [address], 02/09/2025 19:16:55 02/08/20 25 02/08/2025 CBC WITH DIFFE RENTI AL/PL ATELE T lymphs (absolute) 1.4 x10e3 /uL 0.7-3. 1 normal Not Available [facility] ([facility]) [address] [place], [address], 02/09/2025 19:16:55 02/08/20 25 02/08/2025 CBC WITH DIFFE RENTI AL/PL ATELE T monocytes(ab solute) 0.4 x10e3 /uL 0.1-0. 9 normal Not Available [facility] ([facility]) [address] [place], [address], 02/09/2025 19:16:55 02/08/20 25 02/08/2025 CBC WITH DIFFE RENTI AL/PL ATELE T eos (absolute) 0.8 x10e3 /uL 0.0-0. 4 above high normal Not Available [facility] ([facility]) [address] [place], [address], 02/09/2025 19:16:55 02/08/20 25 02/08/2025 CBC WITH DIFFE RENTI AL/PL ATELE T baso (absolute) 0.1 x10e3 /uL 0.0-0. 2 normal Not Available [facility] ([facility]) [address] [place], [address], 02/09/2025 19:16:55 02/08/20 25 02/08/2025 CBC WITH DIFFE RENTI AL/PL ATELE T immature granulocytes 1 % not estab. Not Available [facility] ([facility]) [address] [facility], [place], [address], 02/09/2025 19:16:55 02/08/20 25 02/08/2025 CBC WITH DIFFE RENTI AL/PL ATELE T immature grans (abs) 0.1 x10e3 /uL 0.0-0. 1 Not Available [facility] ([facility]) [address] [facility], [place], [address], 02/09/2025 19:16:55 02/08/20 25 02/08/2025 CBC WITH DIFFE RENTI AL/PL ATELE T NRBC CELERY CUTTER Not Available [facility] ([facility]) [address] [facility], [place], [address], 02/09/2025 19:16:55 02/08/20 25 02/08/2025 CBC WITH DIFFE RENTI AL/PL ATELE T hematology comments: CELERY CUTTER Not Available [facility] ([facility]) [address] [facility], [place], [address], 02/09/2025 19:16:55 02/08/20 25 02/09/2025 IMMUN OGLOB ULIN E, TOTAL immunoglobul in E, total 518 IU/mL 6-495 above high normal Not Available [facility] ([facility]) [address] [facility], [place], [address], 02/09/2025 19:16:56 02/08/[address], sinus es, w/o contr ast No observ ation record ed. [email or web address] [facility] [address], [place], [address], 02/07/2025 09:57:41 02/08/[address], sinus es, w/o contr ast No observ ation record ed. [employer] [facility] [address] [place], [address], 02/07/2025 10:02:46 02/12/20 25 02/07/2025 CT, sinus es, w/o contr ast No observ ation record ed. [employer] [address] [facility] [address], [place], [address], 02/11/2025 15:11:29 02/29/20 25 01/26/2024 vera metry testi ng* No observ ation record ed. [email or web address] [facility] [id number] 03/01/2025 11:49:16 Result Notes None recorded. Problems Name Problem SNOMED Code Status Onset Date Resolution Date Notes Provider Name and Address Organization Details Recorded Time Impacted cerumen in right ear 57689720403 78106 Active 2023 Impacted cerumen, right ear; Note: Date Diagnosed : 08/12/2023 12:22 PM (H61.21) Not Available [facility] 4 03:00:00 Sensorine ural hearing loss of bilateral ears 221858742 Active 2023 Sensorine ural hearing loss, bilateral ; Note: Date Diagnosed : 08/12/2023 1:09 PM (H90.3) Not Available [facility] 4 03:00:01 Chronic maxillary sinusitis 17440473 Active 2024 TEJAL LOVE PA-C [address] [place] [address], [place], [address] , [place] [facility] 5 12:09:34 Acute sinusitis 26900837 Active 2024 LAYO RHODES MD [address] [place] [address], [place], [address] , [place] [facility] 5 12:25:03 Chronic sinusitis 29022234 Active 2024 LAYO RHODES MD [address] [place] [address], [place], [address] , [facility] - [facility] 5 09:57:37 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 [place],[facility] [address], [place], [address] , [facility] - [facility] 09:57:46 Polyp of nasal cavity 573009824 Active 2024 LAYO RHODES MD [address] [facility] [place],[facility] [address], [place], [address] , [facility] - [facility] 5 10:02:00 Essential hypertens ion 11137230 Active 2024 LAYO RHODES MD [address] [facility] [place] [address], [place], [address] , [facility] - [facility] 5 10:06:42 Eosinophi l count above reference range 764970391 Active 2024 LAYO RHODES MD [address] [facility] [place] [address], [place], [address] , [facility] - [facility] 14:42:35 Deviated nasal septum 654396819 Active 2024 LAYO RHODES MD [address] [facility] [place] [address], [place], [address] , [facility] - [facility] 14:42:40 Problem Notes None recorded. Procedures Surgical History Date Name Laterality Status Provider Name and Address Organization Details Recorded Time JMSNasal/Sinus Endoscopy completed LAYO GARCIA MD [address] [facility] [place] [address], [place], [address], [facility] 03/23/2025 14:42:07 Allergy Testing-Full completed FIONA TANNER RN 100 [facility] [address], [place], [address], [facility] 02/28/2025 10:31:13 JMSNasal/Sinus Endoscopy completed LAYO GARCIA MD [address] [facility] [place] [address], [place], [address], [facility] - [facility] 02/07/2025 10:06:23 Imaging Results None recorded. [...] Updated DateTime 02/07/2025 73 /min 176/93 mm[Hg] ALYO GARCIA MD [address] [place] [address],[address], [address], [place] - [facility] 02/07/2025 10:07:44 Social History Question Answer Notes LastModified by [email or web address] ion Details LastModified Time Tobacco Smoking Status Never Smoker Agatha bo [place] - [facility] 02/07/2025 09:35:11 How Many Years Have You Consumed Alcohol? 40 Information not available 10/27/2024 What Type Of Associate Consulting Engineer Do You Use? None Information not available [...] Disorder N Anesthesia Complications N Heart Attack (DE) N Other Skin Condition N Diabetes Y [...] ICD10 Code Diagnosis IMO Codes Diagnosis Note [id number] LAYO RHODES MD [facility] [address] [address] 02/07/2025 09:12:54 02/07/2025 10:10:51 Chronic sinusitis 11558268 J32.8 86353 Polyp of nasal cavity 73 2533721 J33.0 Essential hypertension 76147551 I10 74597 Has f/u today with PCP. Previously noted [...] Marte Member ID Guarantor Name 02/07/2025 1 [facility] [id number] Philip Downs [id number] Philip Downs Notes Date Note Type Note Provider Name and Address Organization Details Recorded Time 02/07/2025 text/html Philip Downs is a 59-year-old male who presents for sinus-related symptoms. He reports experiencing recurrent symptoms for nearly a year, with temporary relief following antibiotic treatment. Symptoms typically return approximately two months after completing antibiotics. He has a history of asthma managed with [facility] and has been under the care of [...] with ablation in 2014 and sees a product safety engineer every six months. He denies current use of blood thinners. LAYO GARCIA MD [address] [place] [address], [place], [address], [facility] - [facility] 02/07/2025 10:10:17
== END 2025-05-08 11:30 | disposition home or self-care (01) ==
LOC: HO.HKAS 11:08
PROVIDERS: PCP Internal Medicine; Visit Provider Internal Medicine Nephrology
DX: I10 Essential (primary) hypertension (principal)
CPT/HCPCS: 93790; 99214